=== PATIENT | female | born 1995 | race African-American/Black ===

== ENCOUNTER 2024-04-02 22:14 | Emergency (ER) | payer SELFPAY ==
--- OUTSIDE RECORDS SUMMARY | 2024-04-02 22:20 | XMS REPORT | Continuity of Care Document ---
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 ([facility])Name: SOLEDAD GAYLEEL King : 1995 Sex: F Name: ERWIN GAYLE [facility] : 1995 Age/S: 25 / F [address] [facility] Unit #: [id number] Loc: [place] [address] Phys: [facility] [id number] Dis Date: Status: REG ER PHONE #: [phone] Exam Date: 02/18/202158 FAX #:[phone] Reason: RLQ Pain EXAMS: CPT CODE: [id number] CT ABD PELVIS W/CONT 06818 HISTORY: Right upper quadrant pain. COMPARISON: Scan from April 21, 2020. Location: [facility]. CT abdomen and pelvis with IV contrast: 100 mL of Isovue-370. Automated exposure control CT ABDOMEN: The lung bases are clear. Dependent changes. The hepatic parenchyma enhances homogeneously with early enhancing lesion within the left lobe in segment 2 measuring 1.4 cm not seen on the delayed sequence likely and atypical hemangioma. Portal vein and hepatic artery are patent. No mass or nodules within the liver. Gallbladder is without radiopaque stones. The liver is enlarged at 20.7 cm in length. The spleen is quobfmnnh07.5 cm in length. Homogeneous enhancement. The stomach is collapsed and limited in evaluation. Pancreas is enhancing homogeneously with 6.2 mm low-attenuation nonenhancing lesion noted within the tail of the pancreas which is stable from March 2020. Adrenals are normal. Patient is post left nephrectomy. The surgical bed is clear. Right kidney is free from hydroureteronephrosis. Homogeneous enhancement. Excretion is noted. No pathologic adenopathy. Well-opacified abdominal and pelvic vasculature. No bowel obstruction or colitis or diverticulitis or enteritis. CT PELVIS: Appendix is not visiblebut no inflammatory change. Pelvic bowel loops are unobstructed. Incompletely distended urinary bladder is unremarkable. The uterus is prominent suggestive of leiomyomatous change. Ovaries are poorly defined on either side. Correlate with pelvic ultrasound. Minimal inflammation. Correlate for PID.Small free fluid. No abscess or free PAGE 1 Signed Report (CONTINUED) Name: ERWIN GAYLE [facility] : 1995 Age/S: 25 / F [address] [facility] Unit #: [id number] Loc: [place] [address] Phys: Segun Najera MD Acct: [id number] Dis Date: Status: REG ER PHONE #: [phone] Exam Date: 02/18/2021 0958 FAX #: [phone] Reason: RLQ Pain EXAMS: CPT CODE: [id number] CT ABD PELVIS W/CONT 29895 (Continued) air is noted. No pathologic adenopathy. Subcutaneous tissues and the musculature are normal in appearance. No lytic or blastic lesions are noted within the bony skeleton. IMPRESSION: Ill-defined ovaries with mild inflammation. Small free fluid. Correlate for PID. Fibroid uterus. Correlate with ultrasound. The appendix is normal. Bowel loops are unobstructed. No colitis, diverticulitis or enteritis. Patient is post left nephrectomy. The surgicalbed is clean. Right kidney is unremarkable. Stable 6.2 mm low-attenuation lesion in the tail of the pancreas. The etiology remains unclear. Follow-up is recommended. 1.4 cm early enhancing lesion within the left lobe the liver in segment 2 was not visible on the previous exam. This likely represents an atypical hemangioma. at 1013 Reported and signed by: Gregory Mason M.D. CC: Segun Najera MD Technologist:Patsy Albright CTDI: DLP: Trnscb Date/Time: 02/18/2021 (1013) [email or web address].[email or web address] Orig Print D/T: S: 02/18/2021 (1016) PAGE 2 Signed ReportCOMPREHENSIVE METABOLIC [id number] 09:21:00* Test Item Value Reference Range Interpretation Comme nts SODIUM (test code = NA) 141 mmol/L 136-145 N POTASSIUM (test code = K) 4.2 mmol/L 3.5-5.1 N CHLORIDE (test code = CL) 105 mmol/L 101-109 N CARBON DIOXIDE (test code = CO2) 27.3 mmol/L 21-32 N ANION GAP (test code = GAP) 13 mmol/L 10-20 N GLUCOSE (test code = GLU) 98 mg/dL 74-106 N BLOOD UREA NITROGEN (test code = BUN) 10 mg/dL 3-21 N CREATININE (test code = CREAT) 0.84 mg/dL 0.55-1.3 N BUN/CREATININE RATIO (test code = BUN/CREA) 11.9 10-20 N TOTAL PROTEIN (test code = PROT) 8.0 g/dL 6.5-8.4 N ALBUMIN (test code = ALB) 3.1 g/dL 3.4-4.8 L GLOBULIN (test code = GLOB) 4.9 G/DL 1-10 N ALBUMIN/GLOBULIN RATIO (test code = A/G) 0.63 RATIO 0.75-1.50 L CALCIUM (test code = CA) 8.9 mg/dL 8.4-10.2 N BILIRUBIN TOTAL (test code = BILT) 0.20 mg/dL 0.0-1.0 N SGOT/AST (test code = AST) 18 U/L 6-32 N SGPT/ALT (test code = ALT) 21 U/L 12-78 N Note: Change in REFERENCE RANGE due to new reagent method. ALKALINE PHOSPHATASE TOTAL (test code = ALKP) 73 U/L 38-126 N [id number] 09:21:00* Test Item Value Reference Range Interpretation Comme nts LIPASE (test code = LIP) 198 U/L 128-270 N [id number] 09:21:00* Test Item Value Reference Range Interpretation Comme nts MAGNESIUM (test code = MAG) 1.8 mg/dL 1.6-2.3 N COMPREHENSIVE METABOLIC [id number] 09:13:00* Test Item Value Reference Range Interpretation Comme nts SODIUM (test code = NA) 141 mmol/L 136-145 N POTASSIUM (test code = K) 4.2 mmol/L 3.5-5.1 N CHLORIDE (test code = CL) 105 mmol/L 101-109 N CARBON DIOXIDE (test code = CO2) 27.3 mmol/L 21-32 N ANION GAP (test code = GAP) 13 mmol/L 10-20 N GLUCOSE (test code = GLU) 98 mg/dL 74-106 N BLOOD UREA NITROGEN (test co de = BUN) 10 mg/dL 3-21 N CREATININE (test code = CREAT) 0.84 mg/dL 0.55-1.3 N BUN/CREATININE RATIO (test c ode = BUN/CREA) 11.9 10-20 N TOTAL PROTEIN (test code = PROT) gram/dL 6.4-8.2 ALBUMIN (test code = ALB) g/dL 3.4-5.0 GLOBULIN (test code = GLOB) g/dL 2.7-4.2 ALBUMIN/GLOBULIN RATIO (test code = A/G) 0.75-1.50 CALCIUM (test code = CA) 8.9 mg/dL 8.4-10.2 N BILIRUBIN TOTAL (test code = BILT) mg/dL 0.2-1.2 SGOT/AST (test code = AST) IUnit/L 15-37 SGPT/ALT (test code = ALT) U/L 10-69 ALKALINE PHOSPHATASE TOTAL ( test code = ALKP) IUnit/L 45-117 [id number] 09:13:00* Test Item Value Reference Range Interpretation Comme nts LIPASE (test code = LIP) Unit/L 144-286 [id number] 09:13:00* Test Item Value Reference Range Interpretation Comme nts MAGNESIUM (test code = MAG) mg/dL 1.8-2.4 URINALYSIS [id number] 09:08:00* Test Item Value Reference Range Interpretation Comme nts UA COLOR (test code = COLU) YELLOW YELLOW UA APPEARANCE (test code = APPU) HAZY CLEAR A UA GLUCOSE DIPSTICK (test code = DGLUU) norm mg/dL NEGATIVE UA BILIRUBIN DIPSTICK (test code = BILU) NEGATIVE mg/dL NEGATIVE UA KETONE DIPSTICK (test code = KETU) neg mg/dL NEGATIVE UA SPECIFIC GRAVITY (test code = SGU) 1.015 1.001-1.035 UA BLOOD DIPSTICK (test code = COURTNEY) 250 (4+) Warren/uL NEGATIVE A UA PH DIPSTICK (test code = BREANN) 6.0 5.0-8.0 UA PROTEIN DIPSTICK (test code = PROU) 15 (TRACE) mg/dL Neg-15 A UA UROBILINIOGEN DIPSTICK (test code = URO) norm mg/dL 0.0-0.2 UA NITRITE DIPSTICK (test code = YANCY) NEGATIVE NEGATIVE UA LEUKOCYTE ESTERASE DIPSTICK (test code = LEUU) neg uL NEGATIVE UA WBC (test code = WBCU) 0-2 per HPF 0-5 UA RBC (test code = RBCU) >100 per HPF 0-5 UA EPITHELIAL CELLS (test code = EPIU) Few (2-5/hpf) per HPF Few UA BACTERIA (test code = BACU) FEW per HPF NONE Urine Source? Clean CatchUR HCG [id number] 09:08:00* Test Item Value Reference Range Interpretation Comme nts UR HCG QUAL (test code = HCGQLU) Urine Source? Clean CatchURINALYSIS [id number] 09:08:00* Test Item Value Reference Range Interpretation Comme nts UA COLOR (test code = COLU) YELLOW YELLOW UA APPEARANCE (test code = APPU) HAZY CLEAR A UA GLUCOSE DIPSTICK (test code = DGLUU) norm mg/dL NEGATIVE UA BILIRUBIN DIPSTICK (test code = BILU) NEGATIVE mg/dL NEGATIVE UA KETONE DIPSTICK (test code = KETU) neg mg/dL NEGATIVE UA SPECIFIC GRAVITY (test code = SGU) 1.015 1.001-1.035 UA BLOOD DIPSTICK (test code = COURTNEY) 250 (4+) Warren/uL NEGATIVE A UA PH DIPSTICK (test code = BREANN) 6.0 5.0-8.0 UA PROTEIN DIPSTICK (test code = PROU) 15 (TRACE) mg/dL Neg-15 A UA UROBILINIOGEN DIPSTICK (test code = URO) norm mg/dL 0.0-0.2 UA NITRITE DIPSTICK (test code = YANCY) NEGATIVE NEGATIVE UA LEUKOCYTE ESTERASE DIPSTICK (test code = LEUU) neg uL NEGATIVE UA WBC (test code = WBCU) 0-2 per HPF 0-5 UA RBC (test code = RBCU) >100 per HPF 0-5 UA EPITHELIAL CELLS (test code = EPIU) Few (2-5/hpf) per HPF Few UA BACTERIA (test code = BACU) FEW per HPF NONE Urine Source? Clean CatchUR HCG [id number] 09:08:00* Test Item Value Reference Range Interpretation Comme nts UR HCG QUAL (test code = HCGQLU) NEGATIVE This HCGQL test is NOT applicable for MALE patients.Check with nurse about probable order error.If Tumor Marker Test needed, nurse should order test "HCGTU"(Test #550.55948) Urine Source? Clean CatchCBC W/AUTO [id number] 09:02:00* Test Item Value Reference Range Interpretation Comme nts WHITE BLOOD CELL (test code = WBC) 6.1 K/mm3 4.5-12.5 N RED BLOOD CELL (test code = RBC) 4.90 mill/mm3 3.7-5.2 N HEMOGLOBIN (test code = HGB) 10.9 gram/dL 11.5-15.5 L HEMATOCRIT (test code = HCT) 35.5 % 36.0-46.0 L MEAN CELL VOLUME (test code = MCV) 72.4 fL 80-98 L MEAN CELL HGB (test code = MCH) 22.2 picogram 27.0-33.0 L MEAN CELL HGB CONCETRATION (test code = MCHC) 30.7 gram/dL 33.0-36.0 L RED CELL DISTRIBUTION WIDTH (test code = RDW) 16.1 % 11.6-16.2 N RED CELL DISTRIBUTION WIDTH SD (test code = RDW-SD) 42.9 fL 37.0-51.0 N PLATELET COUNT (test code = PLT) 464 K/mm3 150-450 H MEAN PLATELET VOLUME (test c ode = MPV) 9.1 fL 6.7-11.0 N NEUTROPHIL % (test code = NT%) 48.7 % 39.0-69.0 N LYMPHOCYTE % (test code = LY%) 32.6 % 25.0-55.0 N MONOCYTE % (test code = MO%) 11.7 % 0.0-10.0 H EOSINOPHIL % (test code = EO%) 6.3 % 0.0-5.0 H BASOPHIL % (test code = BA%) 0.5 % 0.0-1.0 N NEUTROPHIL # (test code = NT#) 2.96 K/mm3 1.8-7.7 N LYMPHOCYTE # (test code = LY#) 1.98 K/mm3 1.0-5.0 N MONOCYTE # (test code = MO#) 0.71 K/mm3 0-0.8 N EOSINOPHIL # (test code = EO#) 0.38 K/mm3 0.0-0.5 N BASOPHIL # (test code = BA#) 0.03 K/mm3 0.0-0.2 N MANUAL DIFF REQUIRED (test c ode = MDIFF) NO CT ABD/PEL WITH [id number] 09:12:00[place] [address] Patient Name: ERWIN GAYLE MR #: [id number] : 1995 Age/Sex: 24/F Req #: [id number] Adm Physician: Ordered by: KASSY PENDLETON Report #: [id number] Location: [facility] Room/Bed: Procedure: HOPD/CT ABD/PEL WITH CONTRAST-HOPD Exam Date: 05/28/20 Exam Time:0845 REPORT STATUS: Signed CT of the abdomen and pelvis, with contrast, 05/28/2020. History: Right lower quadrant pain for 3 days. Comparison: None available. Technique: Multidetector CT scanning of the abdomen and pelvis was performed from the level of the lung bases to the inferior pubic rami afterintravenous administration of contrast. Coronal and sagittal multiplanar reformations were obtained. RADIATION DOSE: Total DLP: 756 mGy*cm Dose modulation, iterative reconstruction, and/or weight based adjustment of the mA/kV was utilized to reduce the radiation dose to as low as reasonably achieva ble. Discussion: LUNG BASES: No visualized abnormalities. ABDOMEN: The liver, gallbladder, biliary tree, spleen, pancreas, right adrenal gland, and right kidney are normal. The left kidney and adrenal glands are absent, and surgical clips are present in the area consistent with history of left nephrectomy. The hepatic vein, portal vein, and splenic vein are patent. The abdominal aorta is within normal limits for size. Evaluation of bowel is limited without oral contrast. There is no bowel dilatation. The appendix is not identified but there is no evidence of inflammation in the right lower quadrant. There is no evidence of adenopathy or free fluid. PELVIS: The bladder, uterus, and adnexa are unremarkable. There is no evidence of free fluid or adenopathy. BONES AND SOFT TISSUES: No acute findings. IMPRESSION: Status post left nephrectomy. Otherwise unremarkable CT of the abdomen and pelvis. Signed by: Nilo Tarango on 05/28/2020 9:16 AM Dictated By: NILO TARANGO MD Electronically SignedBy: NILO TARANGO MD on 05/28/20915 Transcribed By: RIAN on 05/28/20915 COPY TO: KASSY PENDLETON- PELVIS [id number] 12:45:00Name: ERWIN GAYLE 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 Comparison study: Pelvic ultrasound 04/21/2020 FINDINGS: Uterus: size: 7.9 x 5.4 x 5.4cm using transabdominal measurements echogenicity/masses: Probable multi fibroid uterus. The largest measures up to 1.4 x 1.1 x 1.1 cm. endometrium: 3.7 mm Duplex scans of the ovarian arteries were performed. Eastman scale images were supplemented with color-flow Doppler. Doppler flow velocity analysis (duplex Doppler) was performed. Right ovary: size: 2.7 x 1.6 x 2.3 cm cysts/masses: None Doppler findings: Normal arterial and venous waveforms. adnexal masses: None Left ovary: size: 2 x 1.4 x 2.2 cm cysts/masses: None Doppler findings: Normal arterial and venous waveforms. adnexal masses: None Free fluid: No fluid seen in the cul-de-sac. IMPRESSION: Multi fibroid uterus. Otherwise unremarkablepelvic ultrasound. PAGE 1 Signed Report (CONTINUED) Name: ERWIN GAYLE [facility] : 1995 Age/S: 24 / F [address] [facility] Unit #: [id number] Loc: [place] [address] Phys: CorbinsimbaJosé CARDENAS Acct: [id number] Dis Date: Status: REG ER PHONE #: [phone] Exam Date: 05/20/2020 1239 FAX #: [phone] Reason: PELVIC PAIN EXAMS: CPT CODE: [id number] US PELVIS COMPLETE 79944 (Continued) Location: [facility] at 1245 Reported and signed by: Jimmie Roque M.D. CC: Sanket Desir MD; José Arriola Technologist: Nohelia Tracey RDMS Trnprb Date/Time: 05/20/2020 (9258) [email or web address] Orig Print D/T: S: 05/20/2020 (2878) Probe: PAGE 2 Signed Report- US TRANSVAGINAL NON OB 2020-05-20 12:45:00Name: ERWIN GAYLE [facility] : 1995 Age/S: 24 / F [address] [facility] Unit #: [id number] Loc: [place] [address] Phys: José Arriola Acct: [id number] Dis Date: Status: REG ER PHONE #: [phone] Exam Date: 05/20/2020 1239 FAX #: [phone] Reason: Pelvic Pain EXAMS: CPT CODE: [id number] [place] [address] REASON FOR EXAM: PELVIC PAINEXAM ORDER DATE: 05/20/2020 11:25 AM Attending Lydia: José Arriola PROCEDURE: - DUP AB/PEL/SC COMP, - US TRANSVAGINAL NON OB, - US PELVIS COMPLETE Technique: Grayscale images, color doppler, andspectral doppler images of the uterus and ovaries were obtained utilizing A transabdominal and transvaginal approach. Comparison study: Pelvic ultrasound 04/21/2020 FINDINGS: Uterus: size: 7.9 x 5.4 x 5.4 cm using transabdominal measurements echogenicity/masses: Probable multi fibroid uterus. The largest measures up to 1.4 x 1.1 x 1.1 cm. endometrium: 3.7 mm Duplex scans of the ovarian arteries were performed. Eastman scale images were supplemented with color- flow Doppler. Doppler flow velocity analysis (duplex Doppler) was performed. Right ovary: size: 2.7 x 1.6 x 2.3 cm cysts/masses: None Doppler findings: Normal arterial and venous waveforms. adnexal masses: None Left ovary: size: 2 x 1.4 x2.2 cm cysts/masses: None Doppler findings: Normal arterial and venous waveforms. adnexal masses: None Free fluid: No fluid seen in the cul-de-sac. IMPRESSION: Multi fibroid uterus. Otherwise unremarkable pelvic ultrasound. PAGE 1 Signed Report (CONTINUED) Name: ERWIN GAYLE [facility] : 1995 Age/S: 24 / F [address] [facility] Unit #: [id number] Loc: [place] [address] Phys: José Arriola Acct: [id number] Dis Date: Status: REG ER PHONE #: [phone] Exam Date: 05/20/2020 1239 FAX #: [phone] Reason: Pelvic Pain EXAMS: CPT CODE: [id number] [place] [address] (Continued) Location: [facility] at 1245 Reported and signed by: Jimmie Roque M.D. CC: Sanket Desir MD; José Arriola Technologist: Nohelia Tracey RDMS Trnscb Date/Time: 05/20/2020 (1245) [email or web address] Orig PrintD/T: S: 05/20/2020 (1248) Probe: [id number] PAGE 2 Signed Report- DUP AB/PEL/SC [id number] 12:45:00 Name: ERWIN GAYLE [facility] : 1995 Age/S: 24 / F [address] [facility] Unit #: [id number] Loc: [place] [address] Phys: José Arriola Acct: [id number] Dis Date: Status: REG ER PHONE #: [phone] Exam Date: 05/20/2020 1239 FAX #: [phone] Reason: PELVIC PAIN EXAMS: CPT CODE: [id number] DUP AB/PEL/SC COMP 81949 REASON FOR EXAM: PELVIC PAIN EXAMORDER DATE: 05/20/2020 11:25 AM Attending Lydia: José Arriola PROCEDURE: - DUP AB/PEL/SC COMP, - US TRANSVAGINAL NON OB, - US PELVIS COMPLETE Technique: Grayscale images, color doppler, and spectral doppler images of the uterus and ovaries were obtained utilizing A transabdominal and transvaginal approach. Comparison study: Pelvic ultrasound 04/21/2020 FINDINGS: Uterus: size: 7.9 x 5.4 x 5.4 cm using transabdominal measurements echogenicity/masses: Probable multi fibroid uterus. The largest measures up to 1.4 x 1.1 x 1.1 cm. endometrium: 3.7 mm Duplex scans of the ovarian arteries were performed. Eastman scale images were supplemented with color-flow Doppler. Doppler flow velocity analysis (duplex Doppler) was performed. Right ovary: size: 2.7 x 1.6 x 2.3 cm cysts/masses: None Doppler findings: Normal arterial and venous waveforms. adnexal masses: None Left ovary: size: 2 x 1.4 x 2.2 cmcysts/masses: None Doppler findings: Normal arterial and venous waveforms. adnexal masses: None Free fluid: No fluid seen in the cul-de-sac. IMPRESSION: Multi fibroid uterus. Otherwise unremarkable pelvic ultrasound. PAGE 1 Signed Report (CONTINUED) Name: ERWIN GAYLE [facility] : 1995 Age/S: 24 / F [address] [facility] Unit #: [id number] Loc: [place] [address] Phys: José Arriola Acct: [id number] Dis Date: Status: REG ER PHONE #: [phone] Exam Date: 05/20/2020 1239 FAX #: [phone] Reason: PELVIC PAIN EXAMS: CPT CODE: [id number] DUP AB/PEL/SC COMP 51007 (Continued) Location: [facility] at 1245 Reported and signed by: Jimmie Roque M.D. CC: Sanket Desir MD; José Arriola Technologist: Nohelia Tracey RDMS Trnscb Date/Time: 05/20/2020 (1245) [email or web address] Orig Print D/T: S: 05/20/2020 (4073) Probe: PAGE 2 Signed ReportBASIC METABOLIC [id number] 12:10:00* Test Item Value Reference Range Interpretation Comme nts SODIUM (test code = NA) 139 mmol/L 135-148 N POTASSIUM (test code = K) 3.7 mmol/L 3.5-5.1 N CHLORIDE (test code = CL) 105 mmol/L 101-109 N CARBON DIOXIDE (test code = CO2) 24.5 mmol/L 21-32 N ANION GAP (test code = GAP) 13 mmol/L 10-20 N GLUCOSE (test code = GLU) 104 mg/dL 74-106 N BLOOD UREA NITROGEN (test code = BUN) 13 mg/dL 3-21 N GLOMERULAR FILTRATION RATE (test code = GFR) > 60 mL/min >=60 Estimated GFR by using Modified MDRD formula.Chronic kidney disease is defined as either kidney damageor GFR <60 mL/min/1.73 m2 for >3 months. CREATININE (test code = CREAT) 0.80 mg/dL 0.55-1.3 N BUN/CREATININE RATIO (test code = BUN/CREA) 16.3 10-20 N CALCIUM (test code = CA) 8.9 mg/dL 8.4-10.2 N HEPATIC FUNCTION [id number] 12:10:00* Test Item Value Reference Range Interpretation Comme nts TOTAL PROTEIN (test code = PROT) 8.0 g/dL 6.5-8.4 N ALBUMIN (test code = ALB) 3.1 g/dL 3.4-4.8 L GLOBULIN (test code = GLOB) 4.9 G/DL 1-10 N ALBUMIN/GLOBULIN RATIO (test code = A/G) 0.6 RATIO 0.75-1.50 L BILIRUBIN TOTAL (test code = BILT) 0.30 mg/dL 0.0-1.0 N BILIRUBIN DIRECT (test code = BILD) 0.10 mg/dL 0.0-0.30 N SGOT/AST (test code = AST) 14 U/L 6-32 N SGPT/ALT (test code = ALT) 23 U/L 12-78 N Note: Change in REFERENCE RANGE due to new reagent method. ALKALINE PHOSPHATASE TOTAL (test code = ALKP) 65 U/L 38-126 N [id number] 12:10:00* Test Item Value Reference Range Interpretation Comme nts LIPASE (test code = LIP) 134 U/L 128-270 N HCG SERUM [id number] 12:10:00* Test Item Value Reference Range Interpretation Comme nts HCG SERUM QUAL (test code = HCGQL) NEGATIVE NEGATIVE This HCGQL test is NOT applicable for MALE patients.Check with nurse about probable order error.If Tumor Marker Test needed, nurse should order test "HCGTU"(Test #550.79190) URINALYSIS [id number] 12:09:00* Test Item Value Reference Range Interpretation Comme nts UA COLOR (test code = COLU) YELLOW YELLOW UA APPEARANCE (test code = APPU) HAZY CLEAR A UA GLUCOSE DIPSTICK (test code = DGLUU) norm mg/dL NEGATIVE UA BILIRUBIN DIPSTICK (test code = BILU) NEGATIVE mg/dL NEGATIVE UA KETONE DIPSTICK (test code = KETU) 5 (Trace) mg/dL NEGATIVE A UA SPECIFIC GRAVITY (test code = SGU) 1.025 1.001-1.035 UA BLOOD DIPSTICK (test code = COURTNEY) 150 (3+) Warren/uL NEGATIVE A UA PH DIPSTICK (test code = BREANN) 6.0 5.0-8.0 UA PROTEIN DIPSTICK (test code = PROU) 30 (1+) mg/dL Neg-15 A UA UROBILINIOGEN DIPSTICK (test code = URO) 1 mg/dL 0.0-0.2 A UA NITRITE DIPSTICK (test code = YANCY) NEGATIVE NEGATIVE UA LEUKOCYTE ESTERASE DIPSTICK (test code = LEUU) 25 Philipp/uL (Trace) uL NEGATIVE A UA WBC (test code = WBCU) 0-5 per HPF 0-5 UA RBC (test code = RBCU) 0-3 per HPF 0-5 UA EPITHELIAL CELLS (test code = EPIU) Moderate (5-10/hpf) per HPF Few UA BACTERIA (test code = BACU) MANY per HPF NONE Urine Source? Clean CatchBASIC METABOLIC [id number] 12:08:00* Test Item Value Reference Range Interpretation Comme nts SODIUM (test code = NA) 139 mmol/L 135-148 N POTASSIUM (test code = K) 3.7 mmol/L 3.5-5.1 N CHLORIDE (test code = CL) 105 mmol/L 101-109 N CARBON DIOXIDE (test code = CO2) 24.5 mmol/L 21-32 N ANION GAP (test code = GAP) 13 mmol/L 10-20 N GLUCOSE (test code = GLU) 104 mg/dL 74-106 N BLOOD UREA NITROGEN (test code = BUN) 13 mg/dL 3-21 N GLOMERULAR FILTRATION RATE (test code = GFR) > 60 mL/min >=60 Estimated GFR by using Modified MDRD formula.Chronic kidney disease is defined as either kidney damageor GFR <60 mL/min/1.73 m2 for >3 months. CREATININE (test code = CREAT) 0.80 mg/dL 0.55-1.3 N BUN/CREATININE RATIO (test code = BUN/CREA) 16.3 10-20 N CALCIUM (test code = CA) 8.9 mg/dL 8.4-10.2 N HEPATIC FUNCTION [id number] 12:08:00* Test Item Value Reference Range Interpretation Comme nts TOTAL PROTEIN (test code = PROT) gram/dL 6.4-8.2 ALBUMIN (test code = ALB) g/dL 3.4-5.0 GLOBULIN (test code = GLOB) g/dL 2.7-4.2 ALBUMIN/GLOBULIN RATIO (test code = A/G) 0.75-1.50 BILIRUBIN TOTAL (test code = BILT) mg/dL 0.2-1.2 BILIRUBIN DIRECT (test code = BILD) mg/dL 0.0-0.20 SGOT/AST (test code = AST) IUnit/L 15-37 SGPT/ALT (test code = ALT) U/L 10-69 ALKALINE PHOSPHATASE TOTAL ( test code = ALKP) IUnit/L 45-117 [id number] 12:08:00* Test Item Value Reference Range Interpretation Comme nts LIPASE (test code = LIP) Unit/L 144-286 HCG SERUM [id number] 12:08:00* Test Item Value Reference Range Interpretation Comme nts HCG SERUM QUAL (test code = HCGQL) NEGATIVE NEGATIVE This HCGQL test is NOT applicable for MALE patients.Check with nurse about probable order error.If Tumor Marker Test needed, nurse should order test "HCGTU"(Test #550.30639) BASIC METABOLIC [id number] 12:04:00* Test Item Value Reference Range Interpretation Comme nts SODIUM (test code = NA) 139 mmol/L 135-148 N POTASSIUM (test code = K) 3.7 mmol/L 3.5-5.1 N CHLORIDE (test code = CL) 105 mmol/L 101-109 N CARBON DIOXIDE (test code = CO2) 24.5 mmol/L 21-32 N ANION GAP (test code = GAP) 13 mmol/L 10-20 N GLUCOSE (test code = GLU) 104 mg/dL 74-106 N BLOOD UREA NITROGEN (test code = BUN) 13 mg/dL 3-21 N GLOMERULAR FILTRATION RATE (test code = GFR) > 60 mL/min >=60 Estimated GFR by using Modified MDRD formula.Chronic kidney disease is defined as either kidney damageor GFR <60 mL/min/1.73 m2 for >3 months. CREATININE (test code = CREAT) 0.80 mg/dL 0.55-1.3 N BUN/CREATININE RATIO (test code = BUN/CREA) 16.3 10-20 N CALCIUM (test code = CA) 8.9 mg/dL 8.4-10.2 N HEPATIC FUNCTION [id number] 12:04:00* Test Item Value Reference Range Interpretation Comme nts TOTAL PROTEIN (test code = PROT) gram/dL 6.4-8.2 ALBUMIN (test code = ALB) g/dL 3.4-5.0 GLOBULIN (test code = GLOB) g/dL 2.7-4.2 ALBUMIN/GLOBULIN RATIO (test code = A/G) 0.75-1.50 BILIRUBIN TOTAL (test code = BILT) mg/dL 0.2-1.2 BILIRUBIN DIRECT (test code = BILD) mg/dL 0.0-0.20 SGOT/AST (test code = AST) IUnit/L 15-37 SGPT/ALT (test code = ALT) U/L 10-69 ALKALINE PHOSPHATASE TOTAL ( test code = ALKP) IUnit/L 45-117 [id number] 12:04:00* Test Item Value Reference Range Interpretation Comme nts LIPASE (test code = LIP) Unit/L 144-286 HCG SERUM [id number] 12:04:00* Test Item Value Reference Range Interpretation Comme nts HCG SERUM QUAL (test code = HCGQL) NEGATIVE URINALYSIS [id number] 12:02:00* Test Item Value Reference Range Interpretation Comme nts UA COLOR (test code = COLU) YELLOW YELLOW UA APPEARANCE (test code = APPU) HAZY CLEAR A UA GLUCOSE DIPSTICK (test code = DGLUU) norm mg/dL NEGATIVE UA BILIRUBIN DIPSTICK (test code = BILU) NEGATIVE mg/dL NEGATIVE UA KETONE DIPSTICK (test code = KETU) 5 (Trace) mg/dL NEGATIVE A UA SPECIFIC GRAVITY (test code = SGU) 1.025 1.001-1.035 UA BLOOD DIPSTICK (test code = COURTNEY) 150 (3+) Warren/uL NEGATIVE A UA PH DIPSTICK (test code = RBEANN) 6.0 5.0-8.0 UA PROTEIN DIPSTICK (test code = PROU) 30 (1+) mg/dL Neg-15 A UA UROBILINIOGEN DIPSTICK (test code = URO) 1 mg/dL 0.0-0.2 A UA NITRITE DIPSTICK (test code = YANCY) NEGATIVE NEGATIVE UA LEUKOCYTE ESTERASE DIPSTICK (test code = LEUU) 25 Philipp/uL (Trace) uL NEGATIVE A UA WBC (test code = WBCU) per HPF 0-5 UA RBC (test code = RBCU) per HPF 0-5 UA EPITHELIAL CELLS (test code = EPIU) per HPF Few UA BACTERIA (test code = BACU) per HPF NONE Urine Source? Clean CatchCBC W/O [id number] 11:56:00* Test Item Value Reference Range Interpretation Comme nts WHITE BLOOD CELL (test code = WBC) 8.3 K/mm3 4.5-12.5 N RED BLOOD CELL (test code = RBC) 4.91 mill/mm3 3.7-5.2 N HEMOGLOBIN (test code = HGB) 11.1 gram/dL 11.5-15.5 L HEMATOCRIT (test code = HCT) 36.0 % 36.0-46.0 N MEAN CELL VOLUME (test code = MCV) 73.3 fL 80-98 L MEAN CELL HGB (test code = MCH) 22.6 picogram 27.0-33.0 L MEAN CELL HGB CONCETRATION (test code = MCHC) 30.8 gram/dL 33.0-36.0 L RED CELL DISTRIBUTION WIDTH (test code = RDW) 14.5 % 11.6-16.2 N RED CELL DISTRIBUTION WIDTH SD (test code = RDW-SD) 38.8 fL 37.0-51.0 N PLATELET COUNT (test code = PLT) 419 K/mm3 150-450 N MEAN PLATELET VOLUME (test c ode = MPV) 9.7 fL 6.7-11.0 N CHLAMYDIA GC DNA BY [id number] 13:09:00* Test Item Value Reference Range Interpretation Comme nts C. TRACHOMATIS DNA BY PCR (test code = CHLAMTDNA) Negative Negative N. GONORRHOEAE DNA BY PCR (test code = NGONORDNA) Negative Negative Performed At: [facility] [place], [place] [id number] Arzola MD Ph:[phone] performed at: [facility] [address] [place] [address] - CT ABD PELVIS [id number] 19:36:00Name: ERWIN GAYLE [facility] : 1995 Age/S: 24 / F [address] [facility] Unit #: [id number] Loc: [place] [address] Phys: Sarah Wills MD Acct: [id number] Date: Status: REG ER PHONE #: [phone] Exam Date: 04/21/2020 175 FAX #: [phone] Reason: RLQ pain EXAMS: CPT CODE: [id number] CT ABD PELVIS W/CONT [id number] EXAM: CT of the abdomen and pelvis with contrast; INFORMATION: Right lower quadrant pain; TECHNIQUE AND FINDINGS: CT dose reduction protocol; 5 mm cuts through the abdomen and pelvis during and after intravenous infusion of contrast material. The liver is enlarged and shows slightly decreased attenuation. No focal lesions. No abnormalities of the biliary system. Pancreas and spleen unremarkable. 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 The left adrenal gland is also absent. The right adrenal gland is not clearly identified but there is no evidence of an adrenal mass lesion. The right kidney is unremarkable; no hydronephrosis. No acute bowel abnormalities. The uterus is enlarged with a solid nodule along its posterior portion. No adnexal lesions. Lung bases are clear. IMPRESSION: 1. No acute abdominal or pelvic abnormalities. 2. Fatty infiltration of the liver. 3.Solitary and unremarkable right kidney. 4. Uterine fibroid. Location code: [facility] at 1936 Reported and signed by: Conrad Lees M.D. CC: Sarah Wills MD Technologist:Patsy Albright CTDI: DLP: Trnscb Date/Time: 04/21/2020 (1935) t.SDR.GRW Orig Print D/T: S: 04/21/2020 (1938) PAGE 1 Signed Report- DUP AB/PEL/SC [id number] 19:01:00Name: ERWIN GAYLE [facility] : 1995 Age/S: 24 / F [address] [facility] Unit #: [id number] Loc: [place] [address] Phys: Sarah Wills MD Acct: [id number] Dis Date: Status: REG ER PHONE #: [phone] Exam Date: 04/21/2020 1744 FAX #: [phone] Reason: RLQ pain and vaginal bleeding EXAMS: CPT CODE: [id number] DUP AB/PEL/SC COMP [id number] EXAM: Transvaginal ultrasound and Doppler sonography; INFORMATION: Right lower quadrant pain and vaginal bleeding;TECHNIQUE AND FINDINGS: Transvaginal grayscale imaging was combined with color Doppler sonography and spectral analysis. The uterus is of normal size and shape. It measures 7.4 x 2.9 x 3.9 cm. Thin endometrial stripe, measuring 5 mm in thickness; no fluid collection within the endometrial canal. A solid nodule is seen within the myometrium, measuring 4.8 x 3.9 cm in diameter. This is consistent with a fibroid. The ovaries are of normal size and shape and with normal flow pattern on Doppler exam. The right ovary measures 3.2 x 1.8 x 2.3 cm. The left ovary measures 2.5 x 1.6 x 2.2 cm. No free fluid within the cul-de-sac. IMPRESSION: 1. Uterine fibroid. 2. No adnexal lesions. Location code: [facility] at 1901 Reported and signed by: Conrad Lees M.D. CC: Sarah Wills MD Technologist: Sebas Jackson [facility] Trnprb Date/Time: 04/21/2020 (1900) tJOHNGRW Orig Print D/T: S: 04/21/2020 (1903) Probe: PAGE 1 Signed Report- US TRANSVAGINAL NON [id number] 19:01:00Name: ERWIN GAYLE [facility] : 1995 Age/S: 24 / F [address] [facility] Unit #: [id number] Loc: [place] [address] Phys: Sarah Wills MD Acct: [id number] Dis Date: Status: REG ER PHONE #: [phone] Exam Date: 04/21/2020 2019 FAX #: [phone] Reason: RLQ pain and vaginal bleeding EXAMS: CPT CODE: [id number] [place] [id number] EXAM: Transvaginal ultrasound and Doppler sonography; INFORMATION: Right lower quadrant pain and vaginal bleeding; TECHNIQUE AND FINDINGS: Transvaginal grayscale imaging was combined with color Doppler sonography and spectral analysis. The uterus is of normal size and shape. It measures 7.4 x 2.9 x 3.9 cm. Thin endometrial stripe, measuring 5 mm in thickness; no fluid collection within the endometrial canal.A solid nodule is seen within the myometrium, measuring 4.8 x 3.9 cm in diameter. This is consistent with a fibroid. The ovaries are of normal size and shape and with normal flow pattern on Doppler exam. The right ovary measures 3.2 x 1.8 x 2.3 cm. The left ovary measures 2.5 x 1.6 x 2.2 cm. No free fluid within the cul-de-sac. IMPRESSION: 1. Uterine fibroid. 2. No adnexal lesions. Location code:[facility] at 190 Reported and signed by: Conrad Lees M.D. CC: Sarah Wills MD Technologist: Sebas Jackson RDAZ Trnprb Date/Time: 04/21/2020 (1900) WilberGRW Orig Print D/T: S: 04/21/2020 (1903) Probe: [id number] PAGE 1 Signed Report- XR CHEST 1 [id number] 17:59:00Name: ERWIN GAYLE [facility] : 1995 Age/S:24 /F [address] [facility] Unit#:[id number] Loc: [place] [address] Phys: Sarah Wills MD Dis Date: PHONE #: [phone] Status: PRE ER FAX #: [phone] Exam Date: 04/21/2020 Reason: Abdominal Pain EXAMS: CPT CODE: [id number] XR CHEST 1 V 90785 EXAM: Chest X-ray, 1 view; CLINICAL HISTORY: Chest pain and abdominal pain; FINDINGS: The lungs are clear, no infiltrates, no edema; no effusions; no pneumothorax; normal cardiomediastinal silhouette. IMPRESSION: Normal chest x- ray. Location code: [facility] at 175 Reported and signed by: Conrad Lees M.D. CC: Sarah Wills MD Technologist: Patsy Albright Trnprrpt Data: 04/21/2020 (5094) WilberGRW Orig Print D/T: S: 04/21/2020 (1990) PAGE 1 Signed ReportBASIC METABOLIC [id number] 17:09:00* Test Item Value Reference Range Interpretation Comme nts SODIUM (test code = NA) 138 mmol/L 136-145 N POTASSIUM (test code = K) 3.8 mmol/L 3.5-5.1 N CHLORIDE (test code = CL) 105 mmol/L 101-109 N CARBON DIOXIDE (test code = CO2) 24.4 mmol/L 21-32 N ANION GAP (test code = GAP) 12 mmol/L 10-20 N GLUCOSE (test code = GLU) 89 mg/dL 74-106 N BLOOD UREA NITROGEN (test code = BUN) 15 mg/dL 3-21 N GLOMERULAR FILTRATION RATE (test code = GFR) > 60 mL/min >=60 Estimated GFR by using Modified MDRD formula.Chronic kidney disease is defined as either kidney damageor GFR <60 mL/min/1.73 m2 for >3 months. CREATININE (test code = CREAT) 0.98 mg/dL 0.55-1.3 N BUN/CREATININE RATIO (test code = BUN/CREA) 15.3 10-20 N CALCIUM (test code = CA) 8.8 mg/dL 8.4-10.2 N HEPATIC FUNCTION [id number] 17:09:00* Test Item Value Reference Range Interpretation Comme nts TOTAL PROTEIN (test code = PROT) 8.1 g/dL 6.5-8.4 N ALBUMIN (test code = ALB) 3.3 g/dL 3.4-4.8 L GLOBULIN (test code = GLOB) 4.8 G/DL 1-10 N ALBUMIN/GLOBULIN RATIO (test code = A/G) 0.69 RATIO 0.75-1.50 L BILIRUBIN TOTAL (test code = BILT) 0.20 mg/dL 0.0-1.0 N BILIRUBIN DIRECT (test code = BILD) 0.00 mg/dL 0.0-0.30 N SGOT/AST (test code = AST) 14 U/L 6-32 N SGPT/ALT (test code = ALT) 23 U/L 12-78 N Note: Change in REFERENCE RANGE due to new reagent method. ALKALINE PHOSPHATASE TOTAL (test code = ALKP) 63 U/L 38-126 N [id number] 17:09:00* Test Item Value Reference Range Interpretation Comme nts LIPASE (test code = LIP) 161 U/L 128-270 N HCG SERUM [id number] 17:09:00* Test Item Value Reference Range Interpretation Comme nts HCG SERUM QUAL (test code = HCGQL) NEGATIVE NEGATIVE This HCGQL test is NOT applicable for MALE patients.Check with nurse about probable order error.If Tumor Marker Test needed, nurse should order test "HCGTU"(Test #550.90711) [id number] 17:09:00* Test Item Value Reference Range Interpretation Comme nts TROPONIN-I (test code = TROPI) <0.015 ng/mL 0.00-0.056 N URINALYSIS [id number] 17:02:00* Test Item Value Reference Range Interpretation Comme nts UA COLOR (test code = COLU) DARK YELLOW YELLOW A UA APPEARANCE (test code = APPU) HAZY CLEAR A UA GLUCOSE DIPSTICK (test code = DGLUU) norm mg/dL NEGATIVE UA BILIRUBIN DIPSTICK (test code = BILU) NEGATIVE mg/dL NEGATIVE UA KETONE DIPSTICK (test code = KETU) 5 (Trace) mg/dL NEGATIVE A UA SPECIFIC GRAVITY (test code = SGU) 1.020 1.001-1.035 UA BLOOD DIPSTICK (test code = COURTNEY) neg Warren/uL NEGATIVE UA PH DIPSTICK (test code = BREANN) 5.0 5.0-8.0 UA PROTEIN DIPSTICK (test code = PROU) 15 (TRACE) mg/dL Neg-15 A UA UROBILINIOGEN DIPSTICK (test code = URO) 1 mg/dL 0.0-0.2 A UA NITRITE DIPSTICK (test code = YANCY) NEGATIVE NEGATIVE UA LEUKOCYTE ESTERASE DIPSTICK (test code = LEUU) 25 Philipp/uL (Trace) uL NEGATIVE A UA WBC (test code = WBCU) 0-5 per HPF 0-5 UA RBC (test code = RBCU) NONE SEEN per HPF 0-5 UA EPITHELIAL CELLS (test code = EPIU) Few (2-5/hpf) per HPF Few UA BACTERIA (test code = BACU) MANY per HPF NONE A UA MUCUS (test code = MUCU) MODERATE per LPF NONE-FEW A Urine Source? Clean CatchBASIC METABOLIC [id number] 17:01:00* Test Item Value Reference Range Interpretation Comme nts SODIUM (test code = NA) 138 mmol/L 136-145 N POTASSIUM (test code = K) 3.8 mmol/L 3.5-5.1 N CHLORIDE (test code = CL) 105 mmol/L 101-109 N CARBON DIOXIDE (test code = CO2) 24.4 mmol/L 21-32 N ANION GAP (test code = GAP) 12 mmol/L 10-20 N GLUCOSE (test code = GLU) 89 mg/dL 74-106 N BLOOD UREA NITROGEN (test code = BUN) 15 mg/dL 3-21 N GLOMERULAR FILTRATION RATE (test code = GFR) > 60 mL/min >=60 Estimated GFR by using Modified MDRD formula.Chronic kidney disease is defined as either kidney damageor GFR <60 mL/min/1.73 m2 for >3 months. CREATININE (test code = CREAT) 0.98 mg/dL 0.55-1.3 N BUN/CREATININE RATIO (test code = BUN/CREA) 15.3 10-20 N CALCIUM (test code = CA) 8.8 mg/dL 8.4-10.2 N HEPATIC FUNCTION [id number] 17:01:00* Test Item Value Reference Range Interpretation Comme nts TOTAL PROTEIN (test code = PROT) gram/dL 6.4-8.2 ALBUMIN (test code = ALB) g/dL 3.4-5.0 GLOBULIN (test code = GLOB) g/dL 2.7-4.2 ALBUMIN/GLOBULIN RATIO (test code = A/G) 0.75-1.50 BILIRUBIN TOTAL (test code = BILT) mg/dL 0.2-1.2 BILIRUBIN DIRECT (test code = BILD) mg/dL 0.0-0.20 SGOT/AST (test code = AST) IUnit/L 15-37 SGPT/ALT (test code = ALT) U/L 10-69 ALKALINE PHOSPHATASE TOTAL ( test code = ALKP) IUnit/L 45-117 [id number] 17:01:00* Test Item Value Reference Range Interpretation Comme nts LIPASE (test code = LIP) Unit/L 144-286 HCG SERUM [id number] 17:01:00* Test Item Value Reference Range Interpretation Comme nts HCG SERUM QUAL (test code = HCGQL) NEGATIVE NEGATIVE This HCGQL test is NOT applicable for MALE patients.Check with nurse about probable order error.If Tumor Marker Test needed, nurse should order test "HCGTU"(Test #550.50991) [id number] 17:01:00* Test Item Value Reference Range Interpretation Comme nts TROPONIN-I (test code = TROPI) ng/mL 0-0.045 URINALYSIS [id number] 16:58:00* Test Item Value Reference Range Interpretation Comme nts UA COLOR (test code = COLU) DARK YELLOW YELLOW A UA APPEARANCE (test code = APPU) HAZY CLEAR A UA GLUCOSE DIPSTICK (test code = DGLUU) norm mg/dL NEGATIVE UA BILIRUBIN DIPSTICK (test code = BILU) NEGATIVE mg/dL NEGATIVE UA KETONE DIPSTICK (test code = KETU) 5 (Trace) mg/dL NEGATIVE A UA SPECIFIC GRAVITY (test code = SGU) 1.020 1.001-1.035 UA BLOOD DIPSTICK (test code = COURTNEY) neg Warren/uL NEGATIVE UA PH DIPSTICK (test code = BREANN) 5.0 5.0-8.0 UA PROTEIN DIPSTICK (test code = PROU) 15 (TRACE) mg/dL Neg-15 A UA UROBILINIOGEN DIPSTICK (test code = URO) 1 mg/dL 0.0-0.2 A UA NITRITE DIPSTICK (test code = YANCY) NEGATIVE NEGATIVE UA LEUKOCYTE ESTERASE DIPSTICK (test code = LEUU) 25 Philipp/uL (Trace) uL NEGATIVE A UA WBC (test code = WBCU) per HPF 0-5 UA RBC (test code = RBCU) per HPF 0-5 UA EPITHELIAL CELLS (test code = EPIU) per HPF Few UA BACTERIA (test code = BACU) per HPF NONE Urine Source? Clean CatchBASIC METABOLIC [id number] 16:56:00* Test Item Value Reference Range Interpretation Comme nts SODIUM (test code = NA) mmol/L 135-148 POTASSIUM (test code = K) mmol/L 3.5-5.1 CHLORIDE (test code = CL) mmol/L 101-109 CARBON DIOXIDE (test code = CO2) mmol/L 21-32 ANION GAP (test code = GAP) mmol/L 10-20 GLUCOSE (test code = GLU) mg/dL 74-106 BLOOD UREA NITROGEN (test code = BUN) mg/dL 3-21 GLOMERULAR FILTRATION RATE ( test code = GFR) mL/min >=60 CREATININE (test code = CREAT) mg/dL 0.55-1.3 BUN/CREATININE RATIO (test c ode = BUN/CREA) 10-20 CALCIUM (test code = CA) mg/dL 8.4-10.2 HEPATIC FUNCTION [id number] 16:56:00* Test Item Value Reference Range Interpretation Comme nts TOTAL PROTEIN (test code = PROT) gram/dL 6.4-8.2 ALBUMIN (test code = ALB) g/dL 3.4-5.0 GLOBULIN (test code = GLOB) g/dL 2.7-4.2 ALBUMIN/GLOBULIN RATIO (test code = A/G) 0.75-1.50 BILIRUBIN TOTAL (test code = BILT) mg/dL 0.2-1.2 BILIRUBIN DIRECT (test code = BILD) mg/dL 0.0-0.20 SGOT/AST (test code = AST) IUnit/L 15-37 SGPT/ALT (test code = ALT) U/L 10-69 ALKALINE PHOSPHATASE TOTAL ( test code = ALKP) IUnit/L 45-117 [id number] 16:56:00* Test Item Value Reference Range Interpretation Comme nts LIPASE (test code = LIP) Unit/L 144-286 HCG SERUM [id number] 16:56:00* Test Item Value Reference Range Interpretation Comme nts HCG SERUM QUAL (test code = HCGQL) NEGATIVE NEGATIVE This HCGQL test is NOT applicable for MALE patients.Check with nurse about probable order error.If Tumor Marker Test needed, nurse should order test "HCGTU"(Test #550.05223) [id number] 16:56:00* Test Item Value Reference Range Interpretation Comme nts TROPONIN-I (test code = TROPI) ng/mL 0-0.045 CBC W/O [id number] 16:52:00* Test Item Value Reference Range Interpretation Comme nts WHITE BLOOD CELL (test code = WBC) 9.9 K/mm3 4.5-12.5 N RED BLOOD CELL (test code = RBC) 4.84 mill/mm3 3.7-5.2 N HEMOGLOBIN (test code = HGB) 11.2 gram/dL 11.5-15.5 L HEMATOCRIT (test code = HCT) 36.0 % 36.0-46.0 N MEAN CELL VOLUME (test code = MCV) 74.4 fL 80-98 L MEAN CELL HGB (test code = MCH) 23.1 picogram 27.0-33.0 L MEAN CELL HGB CONCETRATION (test code = MCHC) 31.1 gram/dL 33.0-36.0 L RED CELL DISTRIBUTION WIDTH (test code = RDW) 15.3 % 11.6-16.2 N RED CELL DISTRIBUTION WIDTH SD (test code = RDW-SD) 41.9 fL 37.0-51.0 N PLATELET COUNT (test code = PLT) 376 K/mm3 150-450 N MEAN PLATELET VOLUME (test c ode = MPV) 9.7 fL 6.7-11.0 N Notes Date/Time Note Provider Source 2023-08-26 08:39:00 [id number]:39:00 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 Patient states that she has been having cough with sore throat for all of last week. Patient endorses having headache with cough that is dry. She states that she went to a primary care doctor this past Monday and was swabbed for strep and COVID which were negative. She was started on an albuterol inhaler but states that the cough haspersisted. Patient denies any ear pain, sore throat, abdominal pain, changes inbladder. She has had a few loose stools. GeneralInitial Greet Date/Time 08/26/23 08 PresentationChief Complaint Cough Review of Systems Review of SystemsConstitutionalReports: Chills. Ears/Nose/ThroatReports: Nasal congestion. Denies: Earache R, Earache L, Earache bilat, Sore throat. RespiratoryReports: Cough, non-productive. Denies: Shortness of breath. CardiovascularDenies: Chest pain. GIDenies: Nausea, Vomiting. FemaleDenies: Dysuria. NeurologicReports: Headache. Past Medical History - AdultStated Complaint COUGH, CONGESTION, SORE THROATAllergiesCoded Allergies:No Known Allergies (08/26/23) Home MedicationsDiscontinued ScriptsDICYCLOMINE (BENTYL) 20 MG PO QID DICYCLOMINE (BENTYL) 20 MG PO QID #30 TABS Prov: 06/25/23 DC: 08/26/23 0849 Therapy completedONDANSETRON ODT (ZOFRAN ODT) 4 MG PO Q6H PRN PRN NAUSEA/VOMITING ONDANSETRON ODT (ZOFRAN ODT) 4 MG PO Q6H PRN PRN NAUSEA/VOMITING #15 TABS Prov: 06/25/23 DC: 08/26/23 0849 Therapy completedFERROUS SULFATE ER (SLOW RELEASE IRON) 142 MG PO DAILY FERROUS SULFATE ER (SLOW RELEASE IRON) 142 MG PO DAILY #30 TABS Prov: 06/25/23 DC: 08/26/23 0849 Therapy completed Discontinued Reported MedicationsAMOXICILLIN (AMOXIL) 500 MG PO Q12H Additional Medical HistoryWilms tumor at age 5, resolvedAdditional Surgical HistoryLeft kidney removal at age 5 due to Wilms tumorAdditional Family HistorySister with endometriosisAlcohol Use Alcohol use (SOCIAL)Drug Use MarijuanaAdditional Social HistoryHas reduce smoking habit from 10 black in miles daily to 1 cigar daily this past year. Physical Exam Vital SignsVital SignsFirst Documented: Result Date Time Pulse Ox 98 08/26 0833 B/P 128/74 08/26 0833 B/P Mean 92 08/26 833 O2 Delivery Room air 08/26 833 Temp 36.9 08/26 833 Pulse 104 08/26 833 Resp 17 08/26 833 Last Documented: Result Date Time Pulse Ox 98 08/26 0833 B/P 128/74 08/26 0833 B/P Mean 92 08/26 833 O2 Delivery Room air 08/26 833 Temp 36.9 08/26 833 Pulse 104 08/26 833 Resp 17 08/26 833 Review of Vital Signs Reviewed Physical ExamGeneral/Const General/Const Awake, Alert, No acute distress, Well appearing, Well developed, Well hydrated, Well nourished, Cooperative, Not toxic appearingMS Head Head Atraumatic, NormocephalicEyes Eyes Atraumatic, PERRL, EOMIEars/Nose/Throat Ears/Nose/Throat Atraumatic, Airway patent, Mucous membranes moistMS Neck Neck AtraumaticResp/Chest Respiratory/Chest Atraumatic, No respiratory distress, No rales, No rhonchi, No wheezing, No retractions Text/Dict NotesNo signs of respiratory distress. Patient breathing evenly and unlabored in thebed. Able to speak in full sentences.Cardiovascular Heart Rate/Rhythm Tachycardia. Abdomen/GI Abdomen/GI AtraumaticMS Back Back AtraumaticSkin Skin Atraumatic, Warm, DryNeurologic Neurologic Oriented X3, Speech NLPsychiatric Psychiatric Affect NL, Mood NL Interpretation Diagnostics Lab Results InterpretationResultsLaboratory Tests: 12/02 0844 Serology POC Influenza A Ag (Negative) Negative POC Influenza B Ag (Negative) Negative Recent Impressions:RADIOLOGY - XR CHEST 1 V 08/26 900 Report Impression - Status: SIGNED Entered: 08/26/2023912 IMPRESSION: Unremarkable frontal chest radiograph.Impression By: [email or web address] - Corby Briceno M.D. Re-Evaluation MDM Free Text MDM NotesFree Text MDM [id number] female presents with cough, congestion. Swabbed earlier in the weekfor strep and COVID which were negative. Will do a influenza swab and also a chest x-ray for the patient. Will give her a dose of Tessalon Perles here. Negative flu. ED CourseMedication(s) OrderedMedication(s) Ordered:Respiratory Tract Agents Sig/Paula Start time Last Medication Dose Route Stop Time Status Admin Benzonatate 100 MG X1ED STA 08/26 08 DC 08/26 PO 08/26 0840 0844 Patient Discharge Departure Vital Signs/ConditionVital SignsFirst Documented: Result Date Time Pulse Ox 98 08/26 0833 B/P 128/74 08/26 0833 B/P Mean 92 08/26 0833 O2 Delivery Room air 08/26 0833 Temp 36.9 08/26 0833 Pulse 104 08/26 0833 Resp 17 08/26 0833 Last Documented: Result Date Time Pulse Ox 98 08/26 0833 B/P 128/74 08/26 0833 B/P Mean 92 08/26 0833 O2 Delivery Room air 08/26 0833 Temp 36.9 08/26 0833 Pulse 104 08/26 0833 Resp 17 08/26 0833 All vital signs available at the time of this entry have been reviewed. Clinical ImpressionClinical ImpressionPrimary Impression: CoughSecondary Impressions: Viral syndrome Disposition DecisionDischarge )( Discharged to Home Yes )( Time 0924 )( Date 08/26/23 Discharge/Care Plan(Auto) PrescriptionsCurrent Visit ScriptsmethylPREDNISolone (MEDROL 4 MG DOSEPAK) 4 MG PO ASDIR methylPREDNISolone (MEDROL 4 MG DOSEPAK) 4 MG PO ASDIR #1 PACKET BENZONATATE (TESSALON) 100 MG PO Q8H PRN PRN COUGH BENZONATATE (TESSALON) 100 MG PO Q8H PRN PRN COUGH #20 CAPS Patient Instructions ED URI No AbxDeparture FormsWORK/SCHOOL EXCUSE VARIABLE May return to work/school 08/28/23 Discharge NoteI have spoken with the patient and/or caregivers. I have explained the patient'scondition, diagnoses and treatment plan based on the information available to meat this time. I have answered the patient's and/or caregiver's questions and addressed any concerns. The patient and/or caregivers have as good an understanding of the patient's diagnosis, condition and treatment plan as can beexpected at this point. The vital signs have been stable. The patient's condition is stable and appropriate for discharge from the emergency department. The patient will pursue further outpatient evaluation with the primary care physician or other designated or consulting physician as outlined in the discharge instructions. The patient and/or caregivers are agreeable to this planof care and follow-up instructions have been explained in detail. The patient and/or caregivers have received these instructions in written format and have expressed an understanding of the discharge instructions. The patient and/or caregivers are aware that any significant change in condition or worsening of symptoms should prompt an immediate return to this or the closest emergency department or a call to 911. at 1046RPT #:[id number] OF REPORTHCA [facility] department [id number]:39:00G.[id number] ilable for patient [id number]:47:02 [facility] 2023-06-25 14:52:00 [id number]4:52:00 [facility] ([facility] PROVIDER REPORTREPORT#:[id number] REPORT STATUS: SignedDATE:06/25/23 TIME: 2 PATIENT: ERWIN GAYLE UNIT #: [id number]#: [id number] ROOM/BED:AGE: 27 SEX: F PCP PHYS: Chris AyalaERVANNALISA AUTHOR: Lissy Cunha 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 She reports she has had pain for the past 2 days with nonbilious vomiting. Shedenies fevers. She denies urinary symptoms. She reports she went to [facility] urgent care just prior to ER arrival and had blood work and urine completed which were all normal. She reports she was sent here to rule out appendicitis. GeneralConfirmed Patient YesPatient Type New patientInitial Greet Date/Time 06/25/23 1440 PresentationChief Complaint Abdominal pain, Vomiting moderateHx Obtained From PatientSudden in Onset? NoOnset Occurred Days agoSymptom Duration Since onsetCaused by No trauma by historyLocation RLQQuality PainfulPain/Sev: Current Moderate ContextImmunization Status General All up to date Risk-Abd Pain F Under 40)( Ectopic Risk factors reviewed Review of Systems ROS StatementsAll systems rev neg except as marked. Focused Review of SystemsGIReports: Abdominal pain, Vomiting. Past Medical History - AdultStated Complaint ABDOMINAL BLEEDINGAllergiesCoded Allergies:No Known Allergies (09/18/21) Home MedicationsDiscontinued ScriptsIBUPROFEN (MOTRIN) 800 MG PO TID PRN PRN PAIN IBUPROFEN (MOTRIN) 800 MG PO TID PRN PRN PAIN #30 TABS Prov: 02/17/22 DC: 06/25/23 1504 Therapy completed as InptCYCLOBENZAPRINE (FLEXERIL) 10 MG PO Q8H PRN PRN MUSCLE SPASMS/PAIN CYCLOBENZAPRINE (FLEXERIL) 10 MG PO Q8H PRN PRN MUSCLE SPASMS/PAIN #15 TABS Prov: 02/17/22 DC: 06/25/23 1504 Therapy completedBUTALBITAL/APAP/CAFF 50/300/40 MG (FIORICET) 1 CAP PO Q4H PRN PRN head pain BUTALBITAL/APAP/CAFF 50/300/40 MG (FIORICET) 1 CAP PO Q4H PRN PRN head pain#30 CAPS Prov: 02/17/22 DC: 06/25/23 1504 Therapy completed Reported MedicationsAMOXICILLIN (AMOXIL) 500 MG PO Q12H Discontinued Reported MedicationsACETAMINOPHEN/CAFFEINE (EXCEDRIN TENSION HEADACHE 500/65 MG) 2 TAB PO Q6H PRN PRN HEADACHE IBUPROFEN (ADVIL) 600 MG PO Q8H PRN PRN HEADACHE IBUPROFEN (ADVIL) 400 MG PO Q6H PRN PRN HEADACHE NAPROXEN SODIUM (ALEVE) 220 MG PO Q12H PRN PRN HEADACHE Additional Medical HistoryWilms tumor at age 5, resolvedAdditional Surgical HistoryLeft kidney removal at age 5 due to Wilms tumorAdditional Family HistorySister with endometriosisAlcohol Use Alcohol use (SOCIAL)Drug Use MarijuanaSmoking status for patients 13 years old or older: Current some day smokerAdditional Social HistoryHas reduce smoking habit from 10 black in [place] daily to 1 cigar daily this past year. Physical Exam Vital SignsVital SignsFirst Documented: Result Date Time Pulse Ox 99 06/25 1446 B/P 128/82 06/25 1446 B/P Mean 97 06/25 144 O2 Delivery Room air 06/25 144 Temp 36.8 06/25 144 Pulse 105 06/25 1446 Resp 16 06/25 1446 Last Documented: Result Date Time Pulse Ox 99 06/25 1700 B/P 148/92 06/25 1700 B/P Mean 110 06/25 170 O2 Delivery Room air 06/25 170 Temp 36.8 06/25 170 Pulse 72 06/25 170 Resp 16 06/25 1700 Review of Vital Signs Reviewed Focused PEGeneral/Const General/Const Awake, Alert, Well appearingResp/Chest Respiratory/Chest Breath sounds NL, Breath sounds = bilat, No respiratory distress, No rales, No rhonchi, No wheezingCardiovascular Cardiovascular Heart rate NL, Regular rhythm, Heart sounds NL, Peripheral circulation NLAbdomen/GI Abdomen/GI Soft, No rebound, BS normoactive, No distention, No hernia, No palpable mass Tenderness/Guarding/Rebound Tender RLQ, Guarding voluntary. MS Back Back Inspection NL, Non-tender, No CVA tendernessSkin Skin Color NL, Warm, Dry, Turgor NLNeurologic Neurologic Oriented X3, Speech NL, No motor deficits, No sensory deficits Interpretation Diagnostics Lab Results InterpretationResultsLaboratory Tests 06/25/23 1525:[Embedded Image Not Available] 06/25/23 1510:[Embedded Image Not Available]Laboratory Tests: 06/25 06/25 1528 1525 Hematology WBC (4.5 - 12.5 K/mm3) 11.1 RBC (3.7 - 5.2 mill/mm3) 4.42 Hgb (11.5 - 15.5 gram/dL) 9.8 L Hct (36.0 - 46.0 %) 32.4 L MCV (80 - 98 fL) 73.3 L MCH (27.0 - 33.0 picogram) 22.2 L MCHC (33.0 - 36.0 gram/dL) 30.2 L RDW (11.6 - 16.2 %) 18.0 H RDW Std Deviation (37.0 - 51.0 fL) 48.2 Plt Count (150 - 450 K/mm3) 466 H MPV (6.7 - 11.0 fL) 8.8 Toxicology Urine Opiates Screen (NEGATIVE) POSITIVE H Urine Barbiturates (NEGATIVE) NEGATIVE Ur Phencyclidine Scrn (NEGATIVE) NEGATIVE Ur Amphetamines Screen (NEGATIVE) NEGATIVE U Benzodiazepines Scrn (NEGATIVE) NEGATIVE Urine Cocaine Screen (NEGATIVE) NEGATIVE Urine Cannabinoids (NEGATIVE) NEGATIVE Urines Urine Color (YELLOW) PINKISH H Urine Appearance (CLEAR) TURBID H Urine pH (5.0 - 8.0) 5.0 Ur Specific [place] (1.001 - 1.035) 1.020 Urine Protein (Neg - 15 mg/dL) 100 (2+) H Urine Glucose (UA) (NEGATIVE mg/dL) norm Urine Ketones (NEGATIVE mg/dL) 5 (Trace) H Urine Blood (NEGATIVE Warren/uL) 250 (4+) H Urine Nitrite (NEGATIVE) NEGATIVE Urine Bilirubin (NEGATIVE mg/dL) NEGATIVE Urine Urobilinogen (0.0 - 0.2 mg/dL) 1 H Ur Leukocyte Esterase (NEGATIVE uL) 100 Philipp/uL (1+) H Urine RBC (0 - 5 per HPF) TNTC H Urine WBC (0 - 5 per HPF) 0-2 Ur Epithelial Cells (Few per HPF) FEW Urine Bacteria (NONE per HPF) RARE Urine HCG, Qual NEGATIVE 06/25 1510 Chemistry Sodium (136 - 145 mmol/L) 139 Potassium (3.5 - 5.1 mmol/L) 3.7 Chloride (101 - 109 mmol/L) 104 Carbon Dioxide (21 - 32 mmol/L) 27.0 Anion Gap (10 - 20 mmol/L) 12 BUN (3 - 21 mg/dL) 7 Creatinine (0.55 - 1.3 mg/dL) 0.71 Glomerular Filtr Rate (>=60 mL/min) > 60 BUN/Creatinine Ratio (10 - 20) 9.9 L Glucose (74 - 106 mg/dL) 95 Calcium (8.4 - 10.2 mg/dL) 8.7 Total Bilirubin (0.0 - 1.0 mg/dL) 0.30 Direct Bilirubin (0.0 - 0.30 mg/dL) 0.10 AST (6 - 32 U/L) 19 ALT (12 - 78 U/L) 20 Total Alk Phosphatase (38 - 126 U/L) 75 Total Protein (6.5 - 8.4 g/dL) 7.9 Albumin (3.4 - 4.8 g/dL) 2.8 L Globulin (1 - 10 G/DL) 5.1 Albumin/Globulin Ratio (0.75 - 1.50 RATIO) 0.55 L Lipase (16 - 77 U/L) 34 Serum , Qual (NEGATIVE) NEGATIVE Recent Impressions:CAT SCAN - CT ABD PELVIS W/CONT 06/25 1530 Report Impression - Status: SIGNED Entered: 06/25/2023 1631 IMPRESSION: No acute intra-abdominal process. Normal appendix. New septated 3.4 cm right hepatic cyst. Recommend MRI for furthercharacterization. Peripherally enhancing 2.7 cm right ovarian lesion, suspect involutingfollicle/cyst. Small pelvic free fluid. LOCATION: [facility] Impression By: Jimmy Avila D.O. Lab Imaging StatementLaboratory radiographic studies reviewed and considered in the medical decision-making. Point of Care TestingPulse Oximetry Pulse Ox % 99 On: Room air Interpretation Interpreted by az Time 1448 Re-Evaluation MDM Free Text MDM NotesFree Text MDM [id number] female presents for evaluation of right lower quadrant abdominal pain. History obtained by patient. Labs and imaging independently reviewed by myself. Reviewed labs and imaging with patient. Anemia on CBC with H H of 9.8 and 32.4. Chemistry unremarkable. Hematuria on UA although no signs of infection. Patient reports vaginal bleeding due to uterine fibroids. She reports she has a follow-up appointment with gynecology on July 06. Appendixnormal on ultrasound. No acute intra-abdominal process noted. Radiologist did note a right hepatic cyst. Discussed need for follow-up with GI for further evaluation. Repeat abdominal examination is benign. No peritoneal signs. Patient tolerating p.o. well. Patient stable for discharge and outpatient follow-up. ER return precautions given. )( Re-Evaluation/Progress #1Text/Dict NotePatient refused pain medication in ER and states she would rather have prescription for pain medicine.Time of Re-Eval 1538)( Re-Eval Status Improved Re-Evaluation/Progress #2Time of Eval 1642Re-Eval Status ImprovedRe-Eval Abdomen Soft, Non-tender, No guarding, No rebound, BS normoactive, McBurney's non-tender, No distentionEval Following Treatment Pt. feels better, Condition improved, Tolerate liquids,no N/VPlan Post Re-Eval Plan discharge Abd Pain MDM Note F < 40The patient is resting comfortably and feels better, is alert and in no distress. The repeat examination is unremarkable and benign; in particular, there is no discomfort at McBurney's point. The history, exam, diagnostic testing, and current condition do not suggest acute appendicitis, bowel obstruction, tubovarian abscess, ectopic , ovarian torsion, acute cholecystitis, bowel perforation, major gastrointestinal bleeding, severe diverticulitis, sepsis, or other significant pathology to warrant further testing, continued ED treatment, admission, or surgical evaluation at this point. The vital signs have been stable. The patient does not have uncontrollable pain, intractable vomiting, or other significant symptoms. The patient's condition is stable and appropriate for discharge. The patient will pursue further outpatient evaluation with the primary care physician or other designated or consulting physician as indicated in the discharge instructions. ED CourseMedication(s) OrderedMedication(s) Ordered:Central Nervous System Agents Sig/Paula Start time Last Medication Dose Route Stop Time Status Admin Ketorolac 15 MG X1ED STA 06/25 1451 DC Tromethamine IV 06/25 1452 Diagnostic Agents Sig/Paula Start time Last Medication Dose Route Stop Time Status Admin Iopamidol 0 .STK-MED ONE 06/25 1536 DC 06/25 .ROUTE 1545 Electrolytic, Caloric, And Norma Sig/Paula Start time Last Medication Dose Route Stop Time Status Admin Sodium Chloride 1,000 ML X1ED STA 06/25 1451 DC 06/25 IV 06/25 1550 1532 Gastrointestinal Drugs Sig/Paula Start time Last Medication Dose Route Stop Time Status Admin Ondansetron HCl 4 MG X1ED PRN PRN 06/25 1500 DC 06/25 IV 1532 Differential Diagnosis)( Differential Diagnosis Appendicitis, Bladder outlet obstruct, Bowel obstruction, Cholangitis, Cholecystitis, Cholelithiasis, Constipation, Intrauterine , Pyelonephritis, Urinary obstruction, Urinary retention, Urinary tract infection, Urolithiasis Patient Discharge Departure Vital Signs/ConditionVital SignsFirst Documented: Result Date Time Pulse Ox 99 06/25 1446 B/P 128/82 06/25 1446 B/P Mean 97 06/25 1446 O2 Delivery Room air 06/25 1446 Temp 36.8 06/25 1446 Pulse 105 10 1446 Resp 16 06/25 1446 Last Documented: Result Date Time Pulse Ox 99 06/25 1700 B/P 148/92 06/25 1700 B/P Mean 110 06/25 1700 O2 Delivery Room air 06/25 1700 Temp 36.8 06/25 1700 Pulse 72 06/25 1700 Resp 16 06/25 1700 All vital signs available at the time of this entry have been reviewed. Condition Stable Clinical ImpressionClinical ImpressionPrimary Impression: Abdominal painSecondary Impressions: Anemia, Hepatic cyst, History of uterine fibroid Disposition DecisionDischarge )( Discharged to Home Yes )( Time 1650 )( Date 06/25/23 Discharge/Care PlanCounseled Regarding Diagnosis, Prescriptions, Need for follow-up, When to returnto ED(Auto) PrescriptionsCurrent Visit ScriptsDICYCLOMINE (BENTYL) 20 MG PO QID DICYCLOMINE (BENTYL) 20 MG PO QID #30 TABS ONDANSETRON ODT (ZOFRAN ODT) 4 MG PO Q6H PRN PRN NAUSEA/VOMITING ONDANSETRON ODT (ZOFRAN ODT) 4 MG PO Q6H PRN PRN NAUSEA/VOMITING #15 TABS FERROUS SULFATE ER (SLOW RELEASE IRON) 142 MG PO DAILY FERROUS SULFATE ER (SLOW RELEASE IRON) 142 MG PO DAILY #30 TABS Prescriptions Reviewed Risks, Benefits, Alternative treatmentPatient Instructions ED Abdominal Pain Adult, ED Anemia No Type Adult, ED Uterine Fibroids Discharge NoteI have spoken with the patient and/or caregivers. I have explained the patient'scondition, diagnoses and treatment plan based on the information available to meat this time. I have answered the patient's and/or caregiver's questions and addressed any concerns. The patient and/or caregivers have as good an understanding of the patient's diagnosis, condition and treatment plan as can beexpected at this point. The vital signs have been stable. The patient's condition is stable and appropriate for discharge from the emergency department. The patient will pursue further outpatient evaluation with the primary care physician or other designated or consulting physician as outlined in the discharge instructions. The patient and/or caregivers are agreeable to this planof care and follow-up instructions have been explained in detail. The patient and/or caregivers have received these instructions in written format and have expressed an understanding of the discharge instructions. The patient and/or caregivers are aware that any significant change in condition or worsening of symptoms should prompt an immediate return to this or the closest emergency department or a call to 911. Quality MeasuresBP F/U for HTN Referred for BP f/u < 4wk, F/u with PCP/other docPreg Test for Women w/Abd Pain Female age 14-50, Complaint of abdominal pn, Any preg test orderedTobacco Screening/Cessation 18 years or older, Tobacco user, Counseled 3-10 minutes Suresh Bradshaw 06/26/23 0858:Patient Discharge Departure Discharge/Care PlanReferralsProvider Referral: Fabian Mead MD Address: [address] [place] [address] Resource Referral: [facility] - [facility] Address: [address] [place] [address] Resource Referral: [facility] - OBGYN Address: [address] [place] [address] Provider Referral: Yury Villalobos MD Address: [address] [place] [address] Resource Referral: [facility] Address: [address] [place] [address] Supervising Physician Note MidLv/Doc Saw Pt 2The PA/LICENSED NUCLEAR OPERATOR has seen the patient and I have performed this visit along with the involvement of the PA/LICENSED NUCLEAR OPERATOR. I agree with the PA/robotic welder findings and plan. I have performed all aspects of MDM as documented including: evaluation of the patient/patient's condition(s), review and analysis of available data, and determinationof risk of patient management decisions. at 2249 at 0858RPT #:[id number] OF REPORTEDEmergency department wlweer6452-66-02T79:52:00V.[id number] ilable for patient [id number]-65K42:50:10 [facility] 2022-02-17 14:36:00 [id number] [id number]+Gr1KtNWboLTY6+7019-67-93T03:36:0 0 [facility] ([facility]ITAL[facility]Y PROVIDER REPORTREPORT#:[id number] REPORT STATUS: SignedDATE:02/17/22 TIME: 1436 PATIENT: ERWIN GAYLE UNIT #: [id number]#: [id number] ROOM/BED:AGE: 26 SEX: F PCP PHYS: No Primary or Family PhysicianSERVICE AUTHOR: Sanket Desir MD * ALL edits or amendments must be made on the electronic/computer document * HPI-Extremity Prob Lower GeneralConfirmed Patient YesInitial Greet Date/Time 02/17/22 1413 PresentationChief Complaint headacheHx Obtained From PatientExacerbated by light Free Text HPI NotesFree Text HPI NotesDenirmala Gayle is a 26 yr old woman who denies significant medical historypresents the ER with headache for several days. Headache sharp in frontal/posterior. No falls or trauma or vision changes or neck stiffness or fever cough or neck pain. He tries otrg-lsj-urvvgew medication with minimal relief. She has had headaches off and on for a while. This is worse than her visit and September. She also notes pain to the medial aspect of her right calf area. She made her out walking her dog. No leg swelling or edema or history of DVT or PE or steroid use or recent immobilization. No pain behind knee and no swelling orloss of sensation. Risk-Extremity Prob Lower Risk StratificationWell's Criteria for DVT Well's Criteria for DVT Response Value Active Cancer? No 0 Immob Lower Extremity? No 0 Bed >3 Days/Surg Last 4 Weeks? No 0 Local Tend Deep Veinous Sys? No 0 Entire Leg Swollen? No 0 Calf Swelling >3cm? No 0 Pit Edema in Symptomatic Leg? No 0 Collat Superficial Veins? No 0 Previous Documented DVT? No 0 Total 0 Review of Systems ROS StatementsAll systems rev neg except as marked. Focused Review of SystemsConstitutionalDenies: Chills, Fatigue, Fever, Lethargy, Malaise, Recent wt loss, Weakness - generalized. MusculoskeletalReports: Extremity pain. NeurologicReports: Headache. Denies: Lightheaded, Numbness, Problem walking. Past Medical History - AdultStated Complaint HEADACHEAllergiesCoded Allergies:No Known Allergies (09/18/21) Home MedicationsDiscontinued ScriptsguaiFENesin/DEXTROMETHORPHAN (guaiFENesin-DM (SF) 100-10 MG/5ML) 10 ML PO Q6H PRN PRN COUGH guaiFENesin/DEXTROMETHORPHAN (guaiFENesin-DM (SF) 100-10 MG/5ML) 10 ML PO Q6H PRN PRN COUGH #150 ML Prov: 09/18/21 DC: 02/17/22 1444 Therapy completedETHINYL EST/DROSPIRENONE (LILIBETH) 1 TAB PO DAILY ONDANSETRON ODT (ZOFRAN ODT) 4 MG PO Q6H PRN PRN NAUSEA/VOMITING ONDANSETRON ODT (ZOFRAN ODT) 4 MG PO Q6H PRN PRN NAUSEA/VOMITING #15 TABS Prov: 02/18/21 DC: 02/17/22 1444 Therapy completedCYCLOBENZAPRINE (FLEXERIL) 10 MG PO Q8H PRN PRN MUSCLE SPASMS/PAIN CYCLOBENZAPRINE (FLEXERIL) 10 MG PO Q8H PRN PRN MUSCLE SPASMS/PAIN #15 TABS Prov: 07/07/21 DC: 02/17/22 1444 Therapy completed Reported MedicationsACETAMINOPHEN/CAFFEINE (EXCEDRIN TENSION HEADACHE 500/65 MG) 2 TAB PO Q6H PRN PRN HEADACHE IBUPROFEN (ADVIL) 600 MG PO Q8H PRN PRN HEADACHE IBUPROFEN (ADVIL) 400 MG PO Q6H PRN PRN HEADACHE NAPROXEN SODIUM (ALEVE) 220 MG PO Q12H PRN PRN HEADACHE Review of Nursing Notes Rapid assess notes revPt reports no significant: Past medical history, Past surgical history, Family history, Social historyAdditional Medical HistoryWilms tumor at age 5, resolvedAdditional Surgical HistoryLeft kidney removal at age 5 due to Wilms tumorAdditional Family HistorySister with endometriosisAlcohol Use Alcohol use (SOCIAL)Drug Use MarijuanaSmoking status: Smoking status for patients 13 years old or older: Never SmokerAdditional Social HistoryHas reduce smoking habit from 10 black in [place] daily to 1 cigar daily this past year. Physical Exam Vital SignsVital SignsFirst Documented: Result Date Time Pulse Ox 100 02/17 1422 B/P 157/90 02/17 1422 B/P Mean 112 02/17 1422 O2 Delivery Room air 02/17 1422 Temp 98.8 02/17 1422 Pulse 108 02/17 1422 Resp 16 02/17 1422 Last Documented: Result Date Time Pulse Ox 99 02/17 1545 B/P 136/78 02/17 1545 B/P Mean 97 02/17 1545 O2 Delivery Room air 02/17 1545 Pulse 100 02/17 1545 Resp 17 02/17 1545 Temp 98.8 02/17 1422 Review of Vital Signs Reviewed Basic Physical ExamBasic PE HEAD: Atraumatic/NC, EYES: PERRL, conj clear, ENT: Membranes moist, NECK: Supple, UP EXT: No gross abnormal, PSYCH: NL thought content Focused PEGeneral/Const General/Const Awake, Alert, Well appearingResp/Chest Respiratory/Chest Breath sounds NL, Breath sounds = bilat, No respiratory distress, No rales, No rhonchi, No wheezingCardiovascular Cardiovascular Heart rate NL, Regular rhythm, Heart sounds NL, Peripheral circulation NLMS Lower Extrem Lower Ext/Pelvis/MS Inspection NL, Full range of motion Text/Dict NotesRight medial gastrocnemius muscle with tenderness palpation. No palpable cords. No edema. Pulses normal. Cap refill normal.MS Ankle/Foot Ankle/Foot Atraumatic, Inspection NL, Full range of motion, No swelling, No erythema, Non-tender, No deformity, Neurologic intact, Vascular intact, No ligamentous injury, Tendon function NL, No compartment syndrome, No circumferential injury, No edema, Gait NLSkin Skin Color NL, Warm, Dry, Intact, Turgor NL, No swellingNeurologic Neurologic Oriented X3, Speech NL, No motor deficits, No sensory deficits Interpretation Diagnostics Lab Results InterpretationResultsLaboratory Tests 02/17/22 1500:[Embedded Image Not Available]Laboratory Tests: 02/17 1500 Chemistry Sodium (135 - 148 mmol/L) 140 Potassium (3.5 - 5.1 mmol/L) 4.0 Chloride (101 - 109 mmol/L) 107 Carbon Dioxide (21 - 32 mmol/L) 23.0 Anion Gap (10 - 20 mmol/L) 14 BUN (3 - 21 mg/dL) 15 Creatinine (0.55 - 1.3 mg/dL) 0.86 Glomerular Filtr Rate (>=60 mL/min) > 60 BUN/Creatinine Ratio (10 - 20) 17.4 Glucose (74 - 106 mg/dL) 90 Calcium (8.4 - 10.2 mg/dL) 8.8 Serum , Qual (NEGATIVE) NEGATIVE Hematology WBC (4.5 - 12.5 K/mm3) 9.9 RBC (3.7 - 5.2 mill/mm3) 4.20 Hgb (11.5 - 15.5 gram/dL) 9.1 L Hct (36.0 - 46.0 %) 30.0 L MCV (80 - 98 fL) 71.4 L MCH (27.0 - 33.0 picogram) 21.7 L MCHC (33.0 - 36.0 gram/dL) 30.3 L RDW (11.6 - 16.2 %) 16.7 H RDW Std Deviation (37.0 - 51.0 fL) 44.0 Plt Count (150 - 450 K/mm3) 559 H MPV (6.7 - 11.0 fL) 8.8 Recent Impressions:CAT SCAN - CT HEAD/BRAIN W/O CONT 02/17 1430 Report Impression - Status: SIGNED Entered: 02/17/2022 1521 IMPRESSION: Negative CT head. Location: HCAImpression By: [email or web address] - Jorgito Nguyen MD Re-Evaluation MDM Free Text MDM NotesFree Text MDM Notescalf symmetric bilerally. euqal measurements. Negative for Wells criteria for DVT. Because of persistent prolonged headache and change in type of headache will obtain CT scan. CT unremarkable. Patient feels improved after medicationsand is well for outpatient follow-up with primary care team. Re-Evaluation/ProgressRe-Evaluation/Progress Text/Dict Noteno head or leg painresolvedFROMNAD Time of Re-Eval 1537 Re-Eval Status Improved Compartment SyndromeThere are no signs or symptoms of compartment syndrome in the injured extremity at the time of this examination. Any pain the patient has is in proportion to the injury, the peripheral circulation is intact, capillary refill is not delayed, and there is no numbness, tingling or paresthesia. Tissue Perfusion ReassessmentPatient tissue perfusion reassessment completed. ED CourseMedication(s) OrderedMedication(s) Ordered:Antihistamine Drugs Sig/Paula Start time Last Medication Dose Route Stop Time Status Admin Diphenhydramine HCl 25 MG X1ED STA 02/17 1436 DC 02/17 IV 02/17 1437 1452 Central Nervous System Agents Sig/Paula Start time Last Medication Dose Route Stop Time Status Admin Acetaminophen 1,000 MG X1ED STA 02/17 1436 DC 02/17 PO 02/17 1437 1452 [facility]astro[facility] Drugs Sig/Paula Start time Last Medication Dose Route Stop Time Status Admin Prochlorperazine 10 MG X1ED STA 02/17 1436 DC 02/17 Edisylate IV 02/17 1437 1452 Patient Discharge Departure Vital Signs/ConditionVital SignsFirst Documented: Result Date Time Pulse Ox 100 02/17 1422 B/P 157/90 02/17 1422 B/P Mean 112 02/17 1422 O2 Delivery Room air 02/17 142 Temp 98.8 02/17 1422 Pulse 108 02/17 1422 Resp 16 02/17 142 Last Documented: Result Date Time Pulse Ox 99 02/17 1545 B/P 136/78 02/17 1545 B/P Mean 97 02/17 1545 O2 Delivery Room air 02/17 1545 Pulse 100 02/17 1545 Resp 17 02/17 1545 Temp 98.8 02/17 1422 All vital signs available at the time of this entry have been reviewed. Condition Stable, Improved Clinical ImpressionClinical ImpressionPrimary Impression: HeadacheSecondary Impressions: Gastrocnemius strain, MEDIAL GASTROCNEMIUS MUSCLE STRAIN RIGHT LEG Disposition DecisionDischarge )( Discharged to Home Yes )( Time 1539 )( Date 02/17/22 Discharge/Care PlanCounseled Regarding Diagnosis, Lab results, Imaging studies, Prescriptions, Needfor follow-up, When to return to ED(Auto) PrescriptionsCurrent Visit ScriptsIBUPROFEN (MOTRIN) 800 MG PO TID PRN PRN PAIN IBUPROFEN (MOTRIN) 800 MG PO TID PRN PRN PAIN #30 TABS CYCLOBENZAPRINE (FLEXERIL) 10 MG PO Q8H PRN PRN MUSCLE SPASMS/PAIN CYCLOBENZAPRINE (FLEXERIL) 10 MG PO Q8H PRN PRN MUSCLE SPASMS/PAIN #15 TABS BUTALBITAL/APAP/CAFF 50/300/40 MG (FIORICET) 1 CAP PO Q4H PRN PRN head pain BUTALBITAL/APAP/CAFF 50/300/40 MG (FIORICET) 1 CAP PO Q4H PRN PRN head pain#30 CAPS Prescriptions Reviewed Risks, BenefitsPatient Instructions ED Headache Unspecified, ED Muscle Strain, ExtremityReferralsProvider Group: PRIMARY CARE Follow-Up: 1-2 Days Departure FormsPCP LISTWORK/SCHOOL EXCUSE-CAREGIVER 2 Discharge NoteI have spoken with the patient and/or caregivers. I have explained the patient'scondition, diagnoses and treatment plan based on the information available to meat this time. I have answered the patient's and/or caregiver's questions and addressed any concerns. The patient and/or caregivers have as good an understanding of the patient's diagnosis, condition and treatment plan as can beexpected at this point. T at 1811RPT #:[id number] OF REPORTHCA [facility] department [id number]:36:00V.[id number] ilable for patient ytnoEMRRYXDMJLOKIR3852-86-37T88:11:53 [facility] 2021-10-21 04:57:00 [id number]:57:00 [facility] ([facility])EMERGENCY PROVIDER REPORTREPORT#:[id number] REPORT STATUS: SignedDATE:10/21/21 TIME: 456 PATIENT: ERWIN GAYLE UNIT #: [id number]#: [id number] ROOM/BED:AGE: 26 SEX: F PCP PHYS: Undefined ProviderSERVICE AUTHOR: Ethan Gaytan MD * ALL edits or amendments must be made on the electronic/computer document * HPI-Headache Free Text HPI NotesFree Text HPI [id number]-lsjy-qwi female with past medical history significant for solitary kidney presented to the ED with complaints of right-sided headache that has been going on for the past 3 days. Patient says that she has tried uxyw-shs-mvbvqbn medications but the headaches have continued to worsen so the patient came into the ED for further evaluation. Patient also complains of photophobia and blurryvision in the right eye. No fevers or chills. No nausea vomiting. Patient reports diarrhea. No weakness or tingling numbness. No sick contacts. GeneralConfirmed Patient YesInitial Greet Date/Time 10/21/21 0417 PresentationChief Complaint HeadacheHx Obtained From PatientSudden in Onset? NoOnset Occurred Days ago (3)Symptom Duration Since onsetProgression since Onset ConstantLocation Frontal RQuality PainfulRadiationDoes not radiate. Severity: Onset ModerateSeverity: Current Moderate Risk-Headache Risk Stratification)( Subarachnoid Hemorrhage Risk factors reviewed)( IC Mass Lesion Risk factors reviewed Review of Systems ROS StatementsAll systems rev neg except as marked. Focused Review of SystemsNeurologicReports: Headache. Past Medical History - AdultStated Complaint HEADACHE X3 DAYSAllergiesCoded Allergies:No Known Allergies (09/18/21) Home MedicationsActive ScriptsguaiFENesin/DEXTROMETHORPHAN (guaiFENesin-DM (SF) 100-10 MG/5ML) 10 ML PO Q6H PRN PRN COUGH guaiFENesin/DEXTROMETHORPHAN (guaiFENesin-DM (SF) 100-10 MG/5ML) 10 ML PO Q6H PRN PRN COUGH #150 ML Prov: 09/18/21ETHINYL EST/DROSPIRENONE (LILIBETH) 1 TAB PO DAILY ONDANSETRON ODT (ZOFRAN ODT) 4 MG PO Q6H PRN PRN NAUSEA/VOMITING ONDANSETRON ODT (ZOFRAN ODT) 4 MG PO Q6H PRN PRN NAUSEA/VOMITING #15 TABS Prov: 02/18/21CYCLOBENZAPRINE (FLEXERIL) 10 MG PO Q8H PRN PRN MUSCLE SPASMS/PAIN CYCLOBENZAPRINE (FLEXERIL) 10 MG PO Q8H PRN PRN MUSCLE SPASMS/PAIN #15 TABS Prov: 07/07/21 Calculated Suicide Risk (nurs) No riskReview of Nursing Notes Rev avail, and agreeAdditional Medical HistoryWilms tumor at age 5, resolvedAdditional Surgical HistoryLeft kidney removal at age 5 due to Wilms tumorAdditional Family HistorySister with endometriosisAlcohol Use Alcohol use (SOCIAL)Drug Use MarijuanaSmoking status: Smoking status for patients 13 years old or older: Current every day smoker Date last smoked: 10/21/21Additional Social HistoryHas reduce smoking habit from 10 black in miles daily to 1 cigar daily this past year. Physical Exam Vital SignsVital SignsFirst Documented: Result Date Time Pulse Ox 100 10/21 0417 B/P 121/85 10/21 0417 B/P Mean 97 10/21 0417 O2 Delivery Room air 10/21 416 Temp 36.6 10/21 0417 Pulse 94 10/21 0417 Resp 10/21 Last Documented: Result Date Time Pulse Ox 100 10/21 0505 B/P 127/80 10/21 0505 B/P Mean 95 10/21 0505 O2 Delivery Room air 10/21 0505 Pulse 87 10/21 0505 Resp 18 10/21 0505 Temp 36.6 01/27 0417 Review of Vital Signs Reviewed, Vital signs normal Focused PEGeneral/Const General/Const Awake, AlertMS Head Head NormocephalicEyes Eyes PERRL, EOMI, No photophobia, Conjunctiva NL, Temporal arteries NLEars/Nose/Throat Ears/Nose/Throat Airway patent, Mucous membranes moist, Pharynx NL, No sinus tendernessMS Neck Neck Supple, No meningismus, Full range of motion, No swelling, Non-tender, No massesResp/Chest Respiratory/Chest Breath sounds NL, Breath sounds = bilat, No respiratory distress, No rales, No rhonchi, No wheezingCardiovascular Cardiovascular Heart rate NL, Regular rhythm, Heart sounds NL, Peripheral circulation NLAbdomen/GI Abdomen/GI Soft, Non-tender, No guarding, No reboundSkin Skin Color NL, No rash, Warm, Dry, Turgor NLNeurologic Neurologic Oriented X3, Speech NL, No motor deficits, No sensory deficits, CNII - XII intact, Cerebellar NL Interpretation Diagnostics Point of Care TestingPulse Oximetry Pulse Ox % 100 On: Room air Interpretation Interpreted by me, Pulse oximetry normal Time 416 Re-Evaluation MDM Free Text MDM NotesFree Text MDM [id number]-hqdy-psg female with past medical history significant for solitary kidney presented to the ED with complaints of right-sided headache that has been going on for the past 3 days. Normal vital signs. Normal exam. No neurological deficits. Patient was treated with IV fluids, Toradol, Reglan and Zofran. Patient symptoms improved. Patient will be discharged home with outpatient follow-up. )( Re-Evaluation/Progress #1)( Re-Eval Status Improved ED CourseMedication(s) OrderedMedication(s) Ordered:Antihistamine Drugs Sig/Paula Start time Last Medication Dose Route Stop Time Status Admin Diphenhydramine HCl 25 MG X1ED STA 10/21 425 DC 10/21 IV 10/21 426 042 Central Nervous System Agents Sig/Paula Start time Last Medication Dose Route Stop Time Status Admin Ketorolac 30 MG X1ED STA 10/21 425 DC 10/21 Tromethamine IV 10/21 426 042 Electrolytic, Caloric, And Norma Sig/Paula Start time Last Medication Dose Route Stop Time Status Admin Sodium Chloride 1,000 ML X1ED STA 10/216 DCD 10/21 IV 10/21 0525 0430 Gastrointestinal Drugs Sig/Paula Start time Last Medication Dose Route Stop Time Status Admin Metoclopramide HCl 10 MG X1ED STA 10/21 425 DC 10/21 IV 10/21 426 0429 Patient Discharge Departure Vital Signs/ConditionVital SignsFirst Documented: Result Date Time Pulse Ox 100 10/21 0417 B/P 121/85 10/21 0417 B/P Mean 97 10/21 0417 O2 Delivery Room air 10/21 416 Temp 36.6 10/21 0417 Pulse 94 10/21 0417 Resp 18 10/217 Last Documented: Result Date Time Pulse Ox 100 10/21 0505 B/P 127/80 10/21 0505 B/P Mean 95 10/21 0505 O2 Delivery Room air 10/21 050 Pulse 87 10/21 0505 Resp 10/21 050 Temp 36.6 10/21 0417 All vital signs available at the time of this entry have been reviewed. Condition Improved Clinical ImpressionClinical ImpressionPrimary Impression: Headache Disposition DecisionDischarge )( Discharged to Home Yes )( Time 0457 )( Date 10/21/21 Discharge/Care PlanCounseled Regarding Diagnosis, Need for follow-up, When to return to EDPatient Instructions ED Headache UnspecifiedReferrals PRIMARY CARE: 2-3 Days Discharge NoteI have spoken with the patient and/or caregivers. I have explained the patient'scondition, diagnoses and treatment plan based on the information available to meat this time. I have answered the patient's and/or caregiver's questions and addressed any concerns. The patient and/or caregivers have as good an understanding of the patient's diagnosis, condition and treatment plan as can beexpected at this point. The vital signs have been stable. The patient's condition is stable and appropriate for discharge from the emergency department. The patient will pursue further outpatient evaluation with the primary care physician or other designated or consulting physician as outlined in the discharge instructions. The patient and/or caregivers are agreeable to this planof care and follow-up instructions have been explained in detail. The patient and/or caregivers have received these instructions in written format and have expressed an understanding of the discharge instructions. The patient and/or caregivers are aware that any significant change in condition or worsening of symptoms should prompt an immediate return to this or the closest emergency department or a call to 911. at 0541RPT #:[id number] OF REPORTEDEmergency department [id number]:57:00V.[id number] ilable for patient etovENHLKPNKGOEEDP1965-07-57T15:42:06 [facility] 2021-09-28 11:40:00 [id number]+[id number] [id number]:40:00 [facility] ([facility])EMERGENCY PROVIDER REPORTREPORT#:[id number] REPORT STATUS: SignedDATE:09/28/21 TIME: 1140 PATIENT: ERWIN GAYLE UNIT #: [id number]#: [id number] ROOM/BED:AGE: 26 SEX: F PCP PHYS: No Primary or Family PhysicianSERVICE AUTHOR: Gaby Marie LICENSED NUCLEAR OPERATOR * ALL edits or amendments must be made on the electronic/computer document * Gaby Marie 09/28/21 1140:HPI-URI/Cough/Cold GeneralConfirmed Patient YesPatient Type New patientInitial Greet Date/Time 09/28/21 1137PCPno pcp PresentationChief Complaint Sore throat, Upper resp infectionHx Obtained From PatientOnset Occurred Days ago (3)Symptom Duration Since onsetProgression since Onset Waxes and wanesContext of Onset Exposure, infectiousLocation Diffuse myalgiaQuality AchingRadiation Does not radiateSeverity: Onset MildSeverity: Current MildAssociated withDenies: Abdominal pain, Anorexia, Arthralgia, Body aches, Chest pain, Chills, Cough, Diarrhea, Ear pain/ache, Fever, Headache, Myalgia, Nausea, Neck pain, Rash, Rhinorrhea, Shortness of breath, Sore throat, Sputum production, Vomiting. Associated Other Pt denies other symptomsExacerbated by NothingRelieved by Nothing ContextImmunization Status General All up to dateRecent Healthcare No recent doctor visit, No recent hospitalizationSimilar Sx Previous YesPregnancy/Sexual Hx Last Menstrual Period 09/25/21 Free Text HPI NotesFree Text HPI Notes26 year old female who comes in to the ER with a complaint of nasal congestion and sore throat. Patient denies injury or trauma. Patient states that signficant other has similar symptoms. Patient states that symptoms started three days ago. Patient denies fever, chills, headache, dizziness, weakness, wheezing, chest pain, sob, abdominal pain, n/v/d, urinary symptoms, or rash. Patient amatory to exam room in no active distress. Review of Systems Focused Review of SystemsConstitutionalDenies: Chills, Fever, Lethargy. EyesDenies: Eye pain bilat, Redness bilat, Visual loss bilat. Ears/Nose/ThroatReports: Sore throat. Denies: Ear drainage R, Ear drainage L, Ear drainage bilat, Ear ringing R, Ear ringing L, Ear ringing bilat, Earache R, Earache L, Earache bilat, Hearing loss R, Hearing loss L, Hearing loss bilat, Mouth pain, Nasal congestion, Nose bleeding, Sinus problem, Throat pain, Throat swelling, Tongue pain, Tongue swelling, Toothache, Voice change. RespiratoryDenies: Cough, non-productive, Cough, productive, Shortness of breath. GIDenies: Abdominal pain, Diarrhea, Nausea, Vomiting. SkinDenies: Diaphoresis, Rash. Allergy/ImmunDenies: Hives, Itching. NeurologicDenies: Change LOC, Dizziness, Focal weakness, Headache, Numbness, Slurred speech. Past Medical History - AdultStated Complaint COUGHAllergiesCoded Allergies:No Known Allergies (09/18/21) Home MedicationsActive ScriptsguaiFENesin/DEXTROMETHORPHAN (guaiFENesin-DM (SF) 100-10 MG/5ML) 10 ML PO Q6H PRN PRN COUGH guaiFENesin/DEXTROMETHORPHAN (guaiFENesin-DM (SF) 100-10 MG/5ML) 10 ML PO Q6H PRN PRN COUGH #150 ML Prov: 09/18/21ETHINYL EST/DROSPIRENONE (LILIBETH) 1 TAB PO DAILY ONDANSETRON ODT (ZOFRAN ODT) 4 MG PO Q6H PRN PRN NAUSEA/VOMITING ONDANSETRON ODT (ZOFRAN ODT) 4 MG PO Q6H PRN PRN NAUSEA/VOMITING #15 TABS Prov: 02/18/21CYCLOBENZAPRINE (FLEXERIL) 10 MG PO Q8H PRN PRN MUSCLE SPASMS/PAIN CYCLOBENZAPRINE (FLEXERIL) 10 MG PO Q8H PRN PRN MUSCLE SPASMS/PAIN #15 TABS Prov: 07/07/21 Review of Nursing Notes Rev avail, and agree, Triage notes reviewedAdditional Medical HistoryWilms tumor at age 5, resolvedAdditional Surgical HistoryLeft kidney removal at age 5 due to Wilms tumorAdditional Family HistorySister with endometriosisAlcohol Use Alcohol use (SOCIAL)Drug Use MarijuanaAdditional Social HistoryHas reduce smoking habit from 10 black in miles daily to 1 cigar daily this past year. Physical Exam Vital SignsVital SignsFirst Documented: Result Date Time Pulse Ox 99 09/28 1146 B/P 110/84 09/28 1146 B/P Mean 92 09/28 1146 O2 Delivery Room air 09/28 1146 Temp 37.1 09/28 1146 Pulse 99 09/28 1146 Resp 16 09/28 1146 Last Documented: Result Date Time Pulse Ox 99 09/28 1146 B/P 110/84 09/28 1146 B/P Mean 92 09/28 1146 O2 Delivery Room air 09/28 1146 Temp 37.1 09/28 1146 Pulse 99 09/28 1146 Resp 16 09/28 1146 Review of Vital Signs Reviewed Focused PEGeneral/Const General/Const Awake, Alert, Well appearing, Not toxic appearingEyes Eyes PERRLEars/Nose/Throat Ears/Nose/Throat Airway patent, Mucous membranes moist, Pharynx NL, Tympanic membs NL, Ext aud canal NL, Nose exam NL, No sinus tendernessMS Neck Neck Supple, No meningismus, Full range of motion, No adenopathy, No swelling, Non-tenderResp/Chest Respiratory/Chest Breath sounds NL, Breath sounds = bilat, No respiratory distress, No rales, No rhonchi, No wheezing, No retractions, No stridorCardiovascular Cardiovascular Heart rate NL, Regular rhythm, Heart sounds NL, Peripheral circulation NLAbdomen/GI Abdomen/GI Soft, Non-tender, No guarding, No reboundSkin Skin Color NL, No rash, Warm, Dry, Turgor NLNeurologic Neurologic Oriented X3, Speech NL, No motor deficits, No sensory deficits Interpretation Diagnostics Lab Results InterpretationResultsLaboratory Tests: 09/28 1151 Serology SARS-CoV-2 Ag (Rapid) (NEGATIVE) NEGATIVE Microbiology: Date/Time Procedure - Status Source Growth 09/28 1151 Group A Streptococcus Screen (ANTWON) - COMP THROAT 09/28 1151 Influenza Virus Type B Antigen - COMP NASAL 09/28 1151 Influenza Virus Type A Antigen - COMP NASAL Point of Care TestingMicro Interpretation Influenza rapid - neg, Strep rapid - neg, COVID negative Pulse Oximetry Pulse Ox % 99 On: Room air Interpretation Interpreted by az Time 1146 Re-Evaluation MDM Free Text MDM NotesFree Text MDM NotesPatient was educated on diagnosis, lab analysis, diet modfications, prescriptions, supportive treatment at home, s/s of when to return to ER, and pcp follow up. Patient instructed to return to ER with new or worsening symptoms. Patient was provided with a copy of lab and imaging results given to take to follow-up appointment. Patient verbalized understanding. Patient was provided with community resources where he can follow up within the next 24 to 48 hours for further evaluation.Patient verbalized understanding. Additional TextI reevaluated patient prior to discharge, patient no active distress. Re-Evaluation/ProgressRe-Evaluation/Progress Time of Re-Eval 1310 Re-Eval Status Improved Eval Following Treatment Pt. feels better, Condition improved Pain Re-Evaluation Denies pain Exam Post Tx - General Active, Alert, Appears well Exam Post Tx - Sys Review Mental status baseline Plan Post Re-Eval Plan admit URI/Flu Adult MDM NoteThe patient is now resting comfortably, is alert and in no distress. The patienthas a normal mental status and is neurologically intact. The patient appears well and is able to tolerate food or fluid by mouth, and there is no significantdehydration. There is no respiratory distress and no signs of systemic toxicity.The history, exam, diagnostic testing (if any) and current condition do not demonstrate an infectious process such as meningitis, severe pneumonia, retropharyngeal abscess, epiglottitis, sepsis or other serious bacterial infection requiring further testing, treatment, consultation, or admission at this time. The vital signs have been stable. The patient's condition is stable and appropriate for discharge. The patient will pursue further outpatient evaluation with the primary care physician or other designated or consulting physician as indicated in the discharge instructions. Patient Discharge Departure Vital Signs/ConditionVital SignsFirst Documented: Result Date Time Pulse Ox 99 09/28 1146 B/P 110/84 09/28 1146 B/P Mean 92 09/28 1146 O2 Delivery Room air 09/28 1146 Temp 37.1 09/28 1146 Pulse 99 / 1146 Resp 16 09/28 1146 Last Documented: Result Date Time Pulse Ox 99 09/28 1146 B/P 110/84 09/28 1146 B/P Mean 92 09/28 1146 O2 Delivery Room air 09/28 1146 Temp 37.1 09/28 1146 Pulse 99 09/28 1146 Resp 16 09/28 1146 All vital signs available at the time of this entry have been reviewed. Condition Stable Clinical ImpressionClinical ImpressionPrimary Impression: URI (upper respiratory infection) Disposition DecisionDischarge )( Discharged to Home Yes )( Time 1311 )( Date 09/28/21 COVID-19 Discharge PlanCDC Criteria Met for Testing YesTest Performed Yes, result negative Discharge/Care PlanCounseled Regarding Diagnosis, Lab results, Prescriptions, Need for follow-up, When to return to EDPrescriptions Reviewed Risks, Benefits, Alternative treatmentPatient Instructions ED URI, Viral, No Abx (Adult)Referrals PRIMARY CARE Departure FormsWORK/SCHOOL EXCUSE VARIABLE Discharge NoteI have spoken with the patient and/or caregivers. I have explained the patient'scondition, diagnoses and treatment plan based on the information available to meat this time. I have answered the patient's and/or caregiver's questions and addressed any concerns. The patient and/or caregivers have as good an understanding of the patient's diagnosis, condition and treatment plan as can beexpected at this point. The vital signs have been stable. The patient's condition is stable and appropriate for discharge from the emergency department. The patient will pursue further outpatient evaluation with the primary care physician or other designated or consulting physician as outlined in the discharge instructions. The patient and/or caregivers are agreeable to this planof care and follow-up instructions have been explained in detail. The patient and/or caregivers have received these instructions in written format and have expressed an understanding of the discharge instructions. The patient and/or caregivers are aware that any significant change in condition or worsening of symptoms should prompt an immediate return to this or the closest emergency department or a call to 911. Quality MeasuresBP F/U for HTN Referred for BP f/u < 4wk, F/u with PCP/other docCurrent Medications Attest: Medication reviewSmoking Cessation Screened, non userTobacco Screening/Cessation 18 years or older, Denies tobacco use Segun Najera 09/28/21 1443:Patient Discharge Departure Supervising Physician Note MidLv Saw Pt AloneI have reviewed the PA/LICENSED NUCLEAR OPERATOR's note and plan of care. I was available for consultation as needed at all times during the patient's visit in the emergency department. I agree with the clinical impression, plan and disposition. at 1402 at 1443RPT #:[id number] OF REPORTEDEmergency department [id number]:40:00V.[id number] ilable for patient aspgEKGVMMPLMIAAAQ0241-44-09Y48:02:29 [facility] 2021-09-18 09:07:00 [id number] [id number]:07:00 [facility] ([facility])EMERGENCY PROVIDER REPORTREPORT#:[id number] REPORT STATUS: SignedDATE:09/18/21 TIME: 906 PATIENT: ERWIN GAYLE UNIT #: [id number]#: [id number] ROOM/BED:AGE: 26 SEX: F PCP PHYS: No Primary or Family PhysicianSERVICE AUTHOR: Deshawn Bay MD * ALL edits or amendments must be made on the electronic/computer document * HPI-URI/Cough/Cold GeneralInitial Greet Date/Time 09/18/21 0901 PresentationChief Complaint Cough, non-productive, diarrheaOnset Occurred Days ago (2)Severity: Onset ModerateSeverity: Current Moderate Free Text HPI NotesFree Text HPI Vcwbu89-pcue-yrd female with no past medical history complains of cough, body aches, nonbloody diarrhea x3 starting 2 days ago. Also states she has an itchy throat. Denies fever, rhinorrhea, chest pain, shortness of breath. Denies abdominal pain, nausea, vomiting. Denies dysuria. Exposed to her girlfriend who tested positive for Covid. Patient is vaccinated for Covid. Review of Systems ROS StatementsAll systems rev neg except as marked. Focused Review of SystemsConstitutionalDenies: Fever. Ears/Nose/ThroatReports: Nasal congestion, Sore throat. RespiratoryReports: Cough, non-productive. Denies: Shortness of breath. GIReports: Diarrhea. Past Medical History - AdultStated Complaint COVID TEST, DIARRHEA, CHILLS, BODY ACHESAllergiesCoded Allergies:No Known Allergies (09/18/21) Home MedicationsActive ScriptsETHINYL EST/DROSPIRENONE (LILIBETH) 1 TAB PO DAILY ONDANSETRON ODT (ZOFRAN ODT) 4 MG PO Q6H PRN PRN NAUSEA/VOMITING ONDANSETRON ODT (ZOFRAN ODT) 4 MG PO Q6H PRN PRN NAUSEA/VOMITING #15 TABS Prov: 02/18/21CYCLOBENZAPRINE (FLEXERIL) 10 MG PO Q8H PRN PRN MUSCLE SPASMS/PAIN CYCLOBENZAPRINE (FLEXERIL) 10 MG PO Q8H PRN PRN MUSCLE SPASMS/PAIN #15 TABS Prov: 07/07/21 Additional Medical HistoryWilms tumor at age 5, resolvedAdditional Surgical HistoryLeft kidney removal at age 5 due to Wilms tumorAdditional Family HistorySister with endometriosisAlcohol Use Alcohol use (SOCIAL)Drug Use MarijuanaSmoking status: Smoking status for patients 13 years old or older: Current every day smokerAdditional Social HistoryHas reduce smoking habit from 10 black in miles daily to 1 cigar daily this past year. Physical Exam Vital SignsVital SignsFirst Documented: Result Date Time Pulse Ox 100 09/18 900 B/P 136/83 09/18 900 B/P Mean 100 09/18 900 O2 Delivery Room air 09/18 900 Temp 36.9 09/18 900 Pulse 100 09/18 900 Resp 16 09/18 900 Last Documented: Result Date Time Pulse Ox 100 09/18 942 B/P 134/85 09/18 942 B/P Mean 101 09/18 942 O2 Delivery Room air 09/18 942 Temp 36.9 09/18 942 Pulse 98 09/18 942 Resp 16 09/18 942 Review of Vital Signs Reviewed Focused PEGeneral/Const General/Const Awake, Alert, No acute distressEars/Nose/Throat Ears/Nose/Throat Airway patent, Mucous membranes moist, Pharynx NL, Tympanic membs NLMS Neck Neck Supple, No meningismus, Full range of motionResp/Chest Respiratory/Chest Breath sounds NL, Breath sounds = bilat, No respiratory distressCardiovascular Cardiovascular Heart rate NL, Regular rhythm, Heart sounds NLAbdomen/GI Abdomen/GI Soft, Non-tender, No guarding, No rebound, BS normoactiveSkin Skin Color NL, No rash, Warm, Dry, IntactNeurologic Neurologic Oriented X3, Speech NL, No motor deficits Interpretation Diagnostics Lab Results InterpretationResultsLaboratory Tests: 09/18 904 Serology SARS-CoV-2 Ag (Rapid) (NEGATIVE) NEGATIVE Lab StatementLaboratory studies reviewed and considered in the medical decision-making. Point of Care TestingPulse Oximetry Pulse Ox % 100 On: Room air Interpretation Interpreted by me, Pulse oximetry normal Time 908 Re-Evaluation MDM Re-Evaluation/ProgressRe-Evaluation/Progress Text/Dict NotePatient is resting comfortably and in no acute distress. She appears nontoxic. Abdomen is soft and nontender. She was given return precautions and voiced understanding. Time of Re-Eval 936 Re-Eval Status Improved Patient Discharge Departure Vital Signs/ConditionVital SignsFirst Documented: Result Date Time Pulse Ox 100 09/18 900 B/P 136/83 09/18 900 B/P Mean 100 09/18 900 O2 Delivery Room air 09/18 900 Temp 36.9 09/18 900 Pulse 100 09/18 900 Resp 16 09/18 900 Last Documented: Result Date Time Pulse Ox 100 09/18 942 B/P 134/85 09/18 942 B/P Mean 101 09/18 942 O2 Delivery Room air 09/18 942 Temp 36.9 09/18 942 Pulse 98 09/18 942 Resp 16 09/18 942 All vital signs available at the time of this entry have been reviewed. Condition Stable Clinical ImpressionClinical ImpressionPrimary Impression: DiarrheaSecondary Impressions: Cough, Viral illnessTime of Impression 937 Disposition DecisionDischarge )( Discharged to Home Yes )( Time 937 )( Date 09/18/21 Discharge/Care PlanCounseled Regarding Diagnosis, Lab results, Need for transfer, Need for follow-up(Auto) PrescriptionsCurrent Visit ScriptsguaiFENesin/DEXTROMETHORPHAN (guaiFENesin-DM (SF) 100-10 MG/5ML) 10 ML PO Q6H PRN PRN COUGH guaiFENesin/DEXTROMETHORPHAN (guaiFENesin-DM (SF) 100-10 MG/5ML) 10 ML PO Q6H PRN PRN COUGH #150 ML Patient Instructions ED Diarrhea, Viral (Adult), Understanding the Cold VirusReferrals PRIMARY CARE: 1 Week Quality MeasuresBP F/U for HTN BP in normal rangeSmoking Cessation Screened, non user at 1445RPT #:[id number] OF REPORTEDEmergency department [id number]:07:00V.[id number] ilable for patient [id number]:45:53 [facility] 2021-07-07 04:58:00 [id number]:58:00 [facility] ([facility])EMERGENCY PROVIDER REPORTREPORT#:[id number] REPORT STATUS: SignedDATE:07/07/21 TIME: 0458 PATIENT: ERWIN GAYLE UNIT #: [id number]#: [id number] ROOM/BED:AGE: 25 SEX: F PCP PHYS: No Primary or Family PhysicianSERVICE AUTHOR: Segun Najera MD * ALL edits or amendments must be made on the electronic/computer document * HPI-Should/Arm Prob/Inj Free Text HPI NotesFree Text HPI [id number]-cahp-jsh female with history of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 up with OB. Given low cost resources and pt understands increased clotting risk with OCPs. Time of Re-Eval 1144)( Re-Eval Status ResolvedRe-Eval Abdomen Soft, Non-tender, No guarding, No rebound, BS normoactiveEval Following Treatment Pt. feels better Abd Pain MDM Note F < 40The patient is resting comfortably and feels better, is alert and in no distress. The repeat examination is unremarkable and benign; in particular, there is no discomfort at McBurney's point. The history, exam, diagnostic testing, and current condition do not suggest acute appendicitis, bowel obstruction, tubovarian abscess, ectopic , ovarian torsion, acute cholecystitis, bowel perforation, major gastrointestinal bleeding, severe diverticulitis, sepsis, or other significant pathology to warrant further testing, continued ED treatment, admission, or surgical evaluation at this point. The vital signs have been stable. The patient does not have uncontrollable pain, intractable vomiting, or other significant symptoms. The patient's condition is stable and appropriate for discharge. The patient will pursue further outpatient evaluation with the primary care physician or other designated or consulting physician as indicated in the discharge instructions. ED CourseMedication(s) OrderedMedication(s) Ordered:Anti-Infective Agents Sig/Paula Start time Last Medication Dose Route Stop Time Status Admin Metronidazole HCl 500 MG X1ED STA 02/18 1048 DC 02/18 PO 02/18 1049 1121 Ceftriaxone Sodium 1,000 MG X1ED STA 02/18 1047 DC 02/18 Sodium Chloride 10 ML IV 02/18 1049 1121 Central Nervous System Agents Sig/Paula Start time Last Medication Dose Route Stop Time Status Admin Ketorolac 30 MG X1ED STA 02/18 0847 DC 02/18 Tromethamine IV 02/18 0848 0850 Diagnostic Agents Sig/Paula Start time Last Medication Dose Route Stop Time Status Admin Iopamidol 0 .STK-MED ONE 02/18 0944 DC 02/18 .ROUTE 0952 Iopamidol 0 .STK-MED ONE 02/18 0944 DC 02/18 .ROUTE 0953 Electrolytic, Caloric, And Norma Sig/Paula Start time Last Medication Dose Route Stop Time Status Admin Sodium Chloride 1,000 ML X1ED STA 02/18 0844 DC 02/18 IV 02/18 0943 0851 Sodium Chloride 1,000 ML X1ED STA 02/18 0844 CAN IV 02/18 0943 Gastrointestinal Drugs Sig/Paula Start time Last Medication Dose Route Stop Time Status Admin Ondansetron HCl 4 MG X1ED STA 02/18 0844 DC 02/18 IV 02/18 0845 0851 Patient Discharge Departure Vital Signs/ConditionVital SignsFirst Documented: Result Date Time Pulse Ox 97 02/18 0837 B/P 123/84 02/18 0837 B/P Mean 97 02/18 0837 Temp 36.7 02/18 0837 Pulse 76 02/18 0837 Resp 18 02/18 0837 Last Documented: Result Date Time Pulse Ox 100 02/18 1130 B/P 137/78 02/18 1130 B/P Mean 97 02/18 1130 Pulse 60 02/18 1130 Resp 18 02/18 1130 Temp 36.7 02/18 0837 All vital signs available at the time of this entry have been reviewed. Condition Stable, Improved Clinical ImpressionClinical ImpressionPrimary Impression: Fibroid uterusSecondary Impressions: Abdominal pain Disposition DecisionDischarge )( Discharged to Home Yes )( Time 1144 )( Date 02/18/21 Discharge/Care PlanCounseled Regarding Diagnosis, Lab results, Imaging studies, Prescriptions, Needfor follow-up, When to return to ED(Auto) PrescriptionsCurrent Visit ScriptsETHINYL EST/DROSPIRENONE (LILIBETH) 1 TAB PO DAILY ONDANSETRON ODT (ZOFRAN ODT) 4 MG PO Q6H PRN PRN NAUSEA/VOMITING ONDANSETRON ODT (ZOFRAN ODT) 4 MG PO Q6H PRN PRN NAUSEA/VOMITING #15 TABS Patient Instructions [facility] FibroidsRefCo[facility] Departure FormsFREE OR LOW COST CLINICSPCP LISTWORK/SCHOOL EXCUSE VARIABLE Any Restrictions Off work/school 2 days Discharge NoteI have spoken with the patient and/or caregivers. I have explained the patient'scondition, diagnoses and treatment plan based on the information available to meat this time. I have answered the patient's and/or caregiver's questions and addressed any concerns. The patient and/or caregivers have as good an understanding of the patient's diagnosis, condition and treatment plan as can beexpected at this point. The vital signs have been stable. The patient's condition is stable and appropriate for discharge from the emergency department. The patient will pursue further outpatient evaluation with the primary care physician or other designated or consulting physician as outlined in the discharge instructions. The patient and/or caregivers are agreeable to this planof care and follow-up instructions have been explained in detail. The patient and/or caregivers have received these instructions in written format and have expressed an understanding of the discharge instructions. The patient and/or caregivers are aware that any significant change in condition or worsening of symptoms should prompt an immediate return to this or the closest emergency department or a call to 911. Free Text Depart NotesFree Text Depart NotesPt improved and stable for d/c home with outpatient follow up. Warning signs/RTED instructions reviewed and all questions answered. at 1244RPT #:[id number] OF REPORTEDEmergen department [id number]:42:00V.[id number] ilable for patient [id number]:45:00 [facility] 2020-05-20 11:26:00 [id number]:2 6:00 [facility] ([facility])EMERGENCY PROVIDER REPORTREPORT#:[id number] REPORT STATUS: SignedDATE:05/20/20 TIME: 1125 PATIENT: ERWIN GAYLE UNIT #: [id number]#: [id number] ROOM/BED:AGE: 24 SEX: F PCP PHYS: No Primary or Family PhysicianSERVICE AUTHOR: José Arriola * ALL edits or amendments must be made on the electronic/computer document * HPI-Abd Pain F Under 40 GeneralConfirmed Patient YesInitial Greet Date/Time 05/20/20 1106PCPFROM [facility]ITY [facility] (DR CARNEY). HAS NOT ESTABLISHED HERE. PresentationChief Complaint Abdominal pain, Vaginal bleedingHx Obtained From Patient, OLD CHARTSudden in Onset? 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 Ultrasound showed a uterine fibroid with abdominal/pelvic CT unremarkable other than a fatty liver and a solitary right kidney which is without cancer or nephrosis. Patient was prescribed a 7-day course of Provera and Pepcid with a follow-up [facility] for fibroid and vaginal bleeding and some PCP contact information for other concerns. Patient did not follow-up. Patient returning to facility due to continuation of symptoms. Right lower quadrant "cramping "type pain intermittently remains which occasionally wakes her at night. Reports saturating vaginal bleeding constant with waxing and waning of quantity. Saturated 3 regular tampons today without clots. Discussedlast visits testing with risks and benefits. Patient opting for labs and ultrasound presently and will hold CT status post findings and other test results. Risk-Abd Pain F Under 40)( Ectopic Risk factors reviewed Review of Systems ROS StatementsAll systems rev neg except as marked. Focused Review of SystemsConstitutionalDenies: Chills, Fever, Lethargy. RespiratoryDenies: Cough, non-productive, Cough, productive, Shortness of breath. CardiovascularDenies: Chest pain, Syncope. GIReports: Abdominal pain (RLQ). FemaleReports: Vaginal bleeding - abnl. MusculoskeletalDenies: Back pain, Extremity pain. Past Medical History - AdultStated Complaint RLQ PAIN, STS PERIOD X4 MONTHSAllergiesCoded Allergies:No Known Allergies (04/21/20) Home MedicationsReported MedicationsNo Known Home Medications Review of Nursing Notes Triage notes reviewedAdditional Medical HistoryWilms tumor at age 5, resolvedAdditional Surgical HistoryLeft kidney removal at age 5 due to Wilms tumorAdditional Family HistorySister with endometriosisAlcohol Use Alcohol use (SOCIAL)Drug Use MarijuanaSmoking status for patients 13 years old or older: Current every day smokerPack years (pk/d)*(yrs): 1 (1 BLACK MILD DAILY)Date last smoked: still smokingAdditional Social HistoryHas reduce smoking habit from 10 black in miles daily to 1 cigar daily this pastyear.State Controlled Subst DB Report Reviewed Yes Text/Dict NoteNARX SCORESNarcotic: 030Sedative:010Stimulant: 000OVERDOSE RISK SCORE: 110 No narcotics rx'd since 12/31/18 by PCP: Dr Bucio-minimal risk Physical Exam Vital SignsVital SignsFirst Documented: Result Date Time Pulse Ox 98 05/20 1107 B/P 105/75 05/20 1107 B/P Mean 85 05/20 1107 O2 Delivery Room air 05/20 1107 Temp 98.2 05/20 1107 Pulse 90 05/20 1107 Resp 16 05/20 1107 Last Documented: Result Date Time Pulse Ox 98 05/20 1107 B/P 105/75 05/20 1107 B/P Mean 85 05/20 1107 O2 Delivery Room air 05/20 1107 Temp 98.2 05/20 1107 Pulse 90 05/20 1107 Resp 16 05/20 1107 Review of Vital Signs Reviewed Focused PEGeneral/Const General/Const Awake, Alert, Well appearingMS Head Head NormocephalicEyes Eyes PERRLEars/Nose/Throat Ears/Nose/Throat Airway patent, Mucous membranes moist, Pharynx NLResp/Chest Respiratory/Chest Breath sounds NL, Breath sounds = bilat, No respiratory distress, No rales, No rhonchi, No wheezingCardiovascular Cardiovascular Heart rate NL, Regular rhythm, Heart sounds NL, Peripheral circulation NLAbdomen/GI Abdomen/GI Soft, Non-tender, McBurney's non-tender, No guarding, No rebound, BS normoactive, No distention, No hernia, No palpable massMS Back Back Inspection NL, Non-tender, No CVA tendernessSkin Skin Color NL, Warm, Dry, Turgor NLGenitourinary General Exam deferredRectum Rectum/Perineum Exam deferredNeurologic Neurologic Oriented X3, Speech NL, No motor deficits, No sensory deficits Interpretation Diagnostics Lab Results InterpretationResultsLaboratory Tests 05/20/20 1131:[Embedded Image Not Available]Laboratory Tests: 05/20 1131 Chemistry Sodium (135 - 148 mmol/L) 139 Potassium (3.5 - 5.1 mmol/L) 3.7 Chloride (101 - 109 mmol/L) 105 Carbon Dioxide (21 - 32 mmol/L) 24.5 Anion Gap (10 - 20 mmol/L) 13 BUN (3 - 21 mg/dL) 13 Creatinine (0.55 - 1.3 mg/dL) 0.80 Glomerular Filtr Rate (>=60 mL/min) > 60 BUN/Creatinine Ratio (10 - 20) 16.3 Glucose (74 - 106 mg/dL) 104 Calcium (8.4 - 10.2 mg/dL) 8.9 Total Bilirubin (0.0 - 1.0 mg/dL) 0.30 Direct Bilirubin (0.0 - 0.30 mg/dL) 0.10 AST (6 - 32 U/L) 14 ALT (12 - 78 U/L) 23 Total Alk Phosphatase (38 - 126 U/L) 65 Total Protein (6.5 - 8.4 g/dL) 8.0 Albumin (3.4 - 4.8 g/dL) 3.1 L Globulin (1 - 10 G/DL) 4.9 Albumin/Globulin Ratio (0.75 - 1.50 RATIO) 0.6 L Lipase (128 - 270 U/L) 134 Serum , Qual (NEGATIVE) NEGATIVE Hematology WBC (4.5 - 12.5 K/mm3) 8.3 RBC (3.7 - 5.2 mill/mm3) 4.91 Hgb (11.5 - 15.5 gram/dL) 11.1 L Hct (36.0 - 46.0 %) 36.0 MCV (80 - 98 fL) 73.3 L MCH (27.0 - 33.0 picogram) 22.6 L MCHC (33.0 - 36.0 gram/dL) 30.8 L RDW (11.6 - 16.2 %) 14.5 RDW Std Deviation (37.0 - 51.0 fL) 38.8 Plt Count (150 - 450 K/mm3) 419 MPV (6.7 - 11.0 fL) 9.7 Urines Urine Color (YELLOW) YELLOW Urine Appearance (CLEAR) HAZY H Urine pH (5.0 - 8.0) 6.0 Ur Specific [place] (1.001 - 1.035) 1.025 Urine Protein (Neg - 15 mg/dL) 30 (1+) H Urine Glucose (UA) (NEGATIVE mg/dL) norm Urine Ketones (NEGATIVE mg/dL) 5 (Trace) H Urine Blood (NEGATIVE Warren/uL) 150 (3+) H Urine Nitrite (NEGATIVE) NEGATIVE Urine Bilirubin (NEGATIVE mg/dL) NEGATIVE Urine Urobilinogen (0.0 - 0.2 mg/dL) 1 H Ur Leukocyte Esterase (NEGATIVE uL) 25 Philipp/uL (Trace) H Urine RBC (0 - 5 per HPF) 0-3 Urine WBC (0 - 5 per HPF) 0-5 Ur Epithelial Cells (Few per HPF) Moderate (5-10/hpf) Urine Bacteria (NONE per HPF) MANY Recent Impressions:ULTRASOUND - DUP AB/PEL/SC COMP 05/20 1210 Report Impression - Status: SIGNED Entered: 05/20/2020 1248 IMPRESSION: Multi fibroid uterus. Otherwise unremarkable pelvic ultrasound. Location: HCAImpression By: Jhon Roque M.D.ULTRASOUND - US PELVIS COMPLETE 05/20 1210 Report Impression - Status: SIGNED Entered: 05/20/2020 1248 IMPRESSION: Multi fibroid uterus. Otherwise unremarkable pelvic ultrasound. Location: HCAImpression By: Jhon Roque M.D.ULTRASOUND - US TRANSVAGINAL NON OB 05/20 1210 Report Impression - Status: SIGNED Entered: 05/20/2020 1248 IMPRESSION: Multi fibroid uterus. Otherwise unremarkable pelvic ultrasound. Location: HCAImpression By: Jhon Roque M.D. 04/21/20 US: Uterine fibroid measuring 4.8 x 3.9 cm in diameter Lab Imaging StatementLaboratory radiographic studies reviewed and considered in the medical decision-making. Point of Care TestingUrinalysis Interpretation Positive blood, Positive ketones, Clean Catch Specimen(contaminated) w/ 1+ protein 3+ blood (pt presents w/ vaginal bleeding) and few leukocytes many bacteria w/ mod amt epithelieal cells. Pulse Oximetry Pulse Ox % 98 On: Room air Interpretation Interpreted by me, Pulse oximetry normal Lab StudiesCBC Interpretation Hemoglobin 11.1 gm/dl (11.2 gm/dl on 04/21/20). No significantchange from previous Re-Evaluation MDM Free Text MDM NotesFree Text MDM NotesDiscussed test results with diagnosis and treatment plan. Prescribed tramadol for pain after narcotic website checked. Follow-up with gynecology and/or PCP, resources given. ED precautions given-patient voiced understanding and agrees with plan. )( Re-Evaluation/Progress #1)( Re-Eval Status Improved Abd Pain MDM Note F < 40The patient is resting comfortably and feels better, is alert and in no distress. The repeat examination is unremarkable and benign; in particular, there is no discomfort at McBurney's point. The history, exam, diagnostic testing, and current condition do not suggest acute appendicitis, bowel obstruction, tubovarian abscess, ectopic , ovarian torsion, acute cholecystitis, bowel perforation, major gastrointestinal bleeding, severe diverticulitis, sepsis, or other significant pathology to warrant further testing, continued ED treatment, admission, or surgical evaluation at this point. The vital signs have been stable. The patient does not have uncontrollable pain, intractable vomiting, or other significant symptoms. The patient's condition is stable and appropriate for discharge. The patient will pursue further outpatient evaluation with the primary care physician or other designated or consulting physician as indicated in the discharge instructions. Tissue Perfusion ReassessmentPatient tissue perfusion reassessment completed. ED CourseMedication(s) OrderedMedication(s) Ordered:Central Nervous System Agents Sig/Paula Start time Last Medication Dose Route Stop Time Status Admin Ketorolac 30 MG X1ED STA 05/20 1124 DC 05/20 Tromethamine IV 05/20 1125 1127 Electrolytic, Caloric, And Norma Sig/Paula Start time Last Medication Dose Route Stop Time Status Admin Sodium Chloride 1,000 ML X1ED STA 05/20 1124 DC 05/20 IV 05/20 1223 1126 Patient Discharge Departure Vital Signs/ConditionVital SignsFirst Documented: Result Date Time Pulse Ox 98 05/20 1107 B/P 105/75 05/20 1107 B/P Mean 85 05/20 1107 O2 Delivery Room air 05/20 110 Temp 98.2 05/20 110 Pulse 90 05/20 1107 Resp 16 05/20 1107 Last Documented: Result Date Time Pulse Ox 98 05/20 110 B/P 105/75 05/20 1107 B/P Mean 85 05/20 1107 O2 Delivery Room air 05/20 1107 Temp 98.2 05/20 110 Pulse 90 05/20 110 Resp 16 05/20 1107 All vital signs available at the time of this entry have been reviewed. Condition Stable Clinical ImpressionClinical ImpressionPrimary Impression: Abdominal painSecondary Impressions: Dysmenorrhea, Uterine fibroid Disposition DecisionDischarge )( Discharged to Home Yes )( Time 1258 )( Date 05/20/20 Discharge/Care Plan(Auto) PrescriptionsCurrent Visit ScriptsNo Known Home Medications ReferralsNo Primary or Family Physician (PCP/Family) Discharge NoteI have spoken with the patient and/or caregivers. I have explained the patient'scondition, diagnoses and treatment plan based on the information available to meat this time. I have answered the patient's and/or caregiver's questions and addressed any concerns. The patient and/or caregivers have as good an understanding of the patient's diagnosis, condition and treatment plan as can beexpected at this point. The vital signs have been stable. The patient's condition is stable and appropriate for discharge from the emergency department. The patient will pursue further outpatient evaluation with the primary care physician or other designated or consulting physician as outlined in the discharge instructions. The patient and/or caregivers are agreeable to this planof care and follow-up instructions have been explained in detail. The patient and/or caregivers have received these instructions in written format and have expressed an understanding of the discharge instructions. The patient and/or caregivers are aware that any significant change in condition or worsening of symptoms should prompt an immediate return to this or the closest emergency department or a call to 911. Quality MeasuresBP F/U for HTN F/u with PCP/other doc, BP in normal rangeSmoking Cessation Screened, non userTobacco Screening/Cessation Tobacco user Smoking Cessation CounselingThe patient was questioned regarding their smoking habits, and I have determined, as the patient's treating physician, that there is a medical necessity in regards to the patient's medical condition to provide smoking cessation program education. The patient was advised to stop smoking and counseled for a period ofgreater than 3 minutes. The patient was instructed to follow up with a primary care physician for smoking cessation and given information regarding local smoking cessation programs in the area. The patient received detailed discharge instructions as to how to stop smoking. The patient expressed an understanding of the need to follow up and the plan for smoking cessation. at 1344RPT #:[id number] OF REPORTEDEmergency department [id number]:26:00V.[id number] ilable for patient [id number]:44:32 [facility] 2020-05-20 11:26:00 [id number] [id number]:2 6:00 [facility] ([facility] PROVID[facility] REPORTREPORT#:[id number] REPORT STATUS: SignedDATE:05/20/20 TIME: 1126 PATIENT: ERWIN GAYLE UNIT #: [id number]#: [id number] ROOM/BED:AGE: 24 SEX: F PCP PHYS: No Primary or Family PhysicianSERVICE AUTHOR: José Arriola * ALL edits or amendments must be made on the electronic/computer document * See AddendumHPI-Abd Pain F Under 40 GeneralConfirmed Patient YesInitial Greet Date/Time 05/20/20 1106PCPFROM [facility] (DR CARNEY). HAS NOT ESTABLISHED HERE. PresentationChief Complaint Abdominal pain, Vaginal bleedingHx Obtained From Patient, OLD CHARTSudden in Onset? 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 Ultrasound showed a uterine fibroid with abdominal/pelvic CT unremarkable other than a fatty liver and a solitary right kidney which is without cancer or nephrosis. Patient was prescribed a 7-day course of Provera and Pepcid with a follow-up [facility] for fibroid and vaginal bleeding and some PCP contact information for other concerns. Patient did not follow-up. Patient returning to facility due to continuation of symptoms. Right lower quadrant "cramping "type pain intermittently remains which occasionally wakes her at night. Reports saturating vaginal bleeding constant with waxing and waning of quantity. Saturated 3 regular tampons today without clots. Discussedlast visits testing with risks and benefits. Patient opting for labs and ultrasound presently and will hold CT status post findings and other test results. Risk-Abd Pain F Under 40)( Ectopic Risk factors reviewed Review of Systems ROS StatementsAll systems rev neg except as marked. Focused Review of SystemsConstitutionalDenies: Chills, Fever, Lethargy. RespiratoryDenies: Cough, non-productive, Cough, productive, Shortness of breath. CardiovascularDenies: Chest pain, Syncope. GIReports: Abdominal pain (RLQ). FemaleReports: Vaginal bleeding - abnl. MusculoskeletalDenies: Back pain, Extremity pain. Past Medical History - AdultStated Complaint RLQ PAIN, STS PERIOD X4 MONTHSAllergiesCoded Allergies:No Known Allergies (04/21/20) Home MedicationsReported MedicationsNo Known Home Medications Review of Nursing Notes Triage notes reviewedAdditional Medical HistoryWilms tumor at age 5, resolvedAdditional Surgical HistoryLeft kidney removal at age 5 due to Wilms tumorAdditional Family HistorySister with endometriosisAlcohol Use Alcohol use (SOCIAL)Drug Use MarijuanaSmoking status for patients 13 years old or older: Current every day smokerPack years (pk/d)*(yrs): 1 (1 BLACK MILD DAILY)Date last smoked: still smokingAdditional Social HistoryHas reduce smoking habit from 10 black in miles daily to 1 cigar daily this pastyear.State Controlled Subst DB Report Reviewed Yes Text/Dict NoteNARX SCORESNarcotic: 030Sedative:010Stimulant: 000OVERDOSE RISK SCORE: 110 No narcotics rx'd since 12/31/18 by PCP: Dr Bucio-minimal risk Physical Exam Vital SignsVital SignsFirst Documented: Result Date Time Pulse Ox 98 05/20 1107 B/P 105/75 05/20 1107 B/P Mean 85 08/26 1107 O2 Delivery Room air 05/20 110 Temp 98.2 05/20 1107 Pulse 90 05/20 1107 Resp 16 05/20 110 Last Documented: Result Date Time Pulse Ox 98 05/20 110 B/P 105/75 05/20 1107 B/P Mean 85 05/20 1107 O2 Delivery Room air 05/20 110 Temp 98.2 05/20 110 Pulse 90 05/20 1107 Resp 16 05/20 1107 Review of Vital Signs Reviewed Focused PEGeneral/Const General/Const Awake, Alert, Well appearingMS Head Head NormocephalicEyes Eyes PERRLEars/Nose/Throat Ears/Nose/Throat Airway patent, Mucous membranes moist, Pharynx NLResp/Chest Respiratory/Chest Breath sounds NL, Breath sounds = bilat, No respiratory distress, No rales, No rhonchi, No wheezingCardiovascular Cardiovascular Heart rate NL, Regular rhythm, Heart sounds NL, Peripheral circulation NLAbdomen/GI Abdomen/GI Soft, Non-tender, McBurney's non-tender, No guarding, No rebound, BS normoactive, No distention, No hernia, No palpable massMS Back Back Inspection NL, Non-tender, No CVA tendernessSkin Skin Color NL, Warm, Dry, Turgor NLGenitourinary General Exam deferredRectum Rectum/Perineum Exam deferredNeurologic Neurologic Oriented X3, Speech NL, No motor deficits, No sensory deficits Interpretation Diagnostics Lab Results InterpretationResultsLaboratory Tests 05/20/20 1131:[Embedded Image Not Available]Laboratory Tests: 05/20 1131 Chemistry Sodium (135 - 148 mmol/L) 139 Potassium (3.5 - 5.1 mmol/L) 3.7 Chloride (101 - 109 mmol/L) 105 Carbon Dioxide (21 - 32 mmol/L) 24.5 Anion Gap (10 - 20 mmol/L) 13 BUN (3 - 21 mg/dL) 13 Creatinine (0.55 - 1.3 mg/dL) 0.80 Glomerular Filtr Rate (>=60 mL/min) > 60 BUN/Creatinine Ratio (10 - 20) 16.3 Glucose (74 - 106 mg/dL) 104 Calcium (8.4 - 10.2 mg/dL) 8.9 Total Bilirubin (0.0 - 1.0 mg/dL) 0.30 Direct Bilirubin (0.0 - 0.30 mg/dL) 0.10 AST (6 - 32 U/L) 14 ALT (12 - 78 U/L) 23 Total Alk Phosphatase (38 - 126 U/L) 65 Total Protein (6.5 - 8.4 g/dL) 8.0 Albumin (3.4 - 4.8 g/dL) 3.1 L Globulin (1 - 10 G/DL) 4.9 Albumin/Globulin Ratio (0.75 - 1.50 RATIO) 0.6 L Lipase (128 - 270 U/L) 134 Serum , Qual (NEGATIVE) NEGATIVE Hematology WBC (4.5 - 12.5 K/mm3) 8.3 RBC (3.7 - 5.2 mill/mm3) 4.91 Hgb (11.5 - 15.5 gram/dL) 11.1 L Hct (36.0 - 46.0 %) 36.0 MCV (80 - 98 fL) 73.3 L MCH (27.0 - 33.0 picogram) 22.6 L MCHC (33.0 - 36.0 gram/dL) 30.8 L RDW (11.6 - 16.2 %) 14.5 RDW Std Deviation (37.0 - 51.0 fL) 38.8 Plt Count (150 - 450 K/mm3) 419 MPV (6.7 - 11.0 fL) 9.7 Urines Urine Color (YELLOW) YELLOW Urine Appearance (CLEAR) HAZY H Urine pH (5.0 - 8.0) 6.0 Ur Specific [place] (1.001 - 1.035) 1.025 Urine Protein (Neg - 15 mg/dL) 30 (1+) H Urine Glucose (UA) (NEGATIVE mg/dL) norm Urine Ketones (NEGATIVE mg/dL) 5 (Trace) H Urine Blood (NEGATIVE Warren/uL) 150 (3+) H Urine Nitrite (NEGATIVE) NEGATIVE Urine Bilirubin (NEGATIVE mg/dL) NEGATIVE Urine Urobilinogen (0.0 - 0.2 mg/dL) 1 H Ur Leukocyte Esterase (NEGATIVE uL) 25 Philipp/uL (Trace) H Urine RBC (0 - 5 per HPF) 0-3 Urine WBC (0 - 5 per HPF) 0-5 Ur Epithelial Cells (Few per HPF) Moderate (5-10/hpf) Urine Bacteria (NONE per HPF) MANY Recent Impressions:ULTRASOUND - DUP AB/PEL/SC COMP 05/20 1210 Report Impression - Status: SIGNED Entered: 05/20/2020 1248 IMPRESSION: Multi fibroid uterus. Otherwise unremarkable pelvic ultrasound. Location: [facility]CAImpression By: Jhon Roque M.D.ULTRASOUND - US PELVIS COMPLETE 05/20 1210 Report Impression - Status: SIGNED Entered: 05/20/2020 1248 IMPRESSION: Multi fibroid uterus. Otherwise unremarkable pelvic ultrasound. Location: [facility]CAImpression By: Jhon Roque M.D.ULTRASOUND - US TRANSVAGINAL NON OB 05/20 1210 Report Impression - Status: SIGNED Entered: 05/20/2020 1248 IMPRESSION: Multi fibroid uterus. Otherwise unremarkable pelvic ultrasound. Location: HCAImpression By: Jhon Roque M.D. 04/21/20 US: Uterine fibroid measuring 4.8 x 3.9 cm in diameter Lab Imaging StatementLaboratory radiographic studies reviewed and considered in the medical decision-making. Point of Care TestingUrinalysis Interpretation Positive blood, Positive ketones, Clean Catch Specimen(contaminated) w/ 1+ protein 3+ blood (pt presents w/ vaginal bleeding) and few leukocytes many bacteria w/ mod amt epithelieal cells. Pulse Oximetry Pulse Ox % 98 On: Room air Interpretation Interpreted by me, Pulse oximetry normal Lab StudiesCBC Interpretation Hemoglobin 11.1 gm/dl (11.2 gm/dl on 04/21/20). No significantchange from previous Re-Evaluation MDM Free Text MDM NotesFree Text MDM NotesDiscussed test results with diagnosis and treatment plan. Prescribed tramadol for pain after narcotic website checked. Follow-up with gynecology and/or PCP, resources given. ED precautions given-patient voiced understanding and agrees with plan. )( Re-Evaluation/Progress #1)( Re-Eval Status Improved Abd Pain MDM Note F < 40The patient is resting comfortably and feels better, is alert and in no distress. The repeat examination is unremarkable and benign; in particular, there is no discomfort at McBurney's point. The history, exam, diagnostic testing, and current condition do not suggest acute appendicitis, bowel obstruction, tubovarian abscess, ectopic , ovarian torsion, acute cholecystitis, bowel perforation, major gastrointestinal bleeding, severe diverticulitis, sepsis, or other significant pathology to warrant further testing, continued ED treatment, admission, or surgical evaluation at this point. The vital signs have been stable. The patient does not have uncontrollable pain, intractable vomiting, or other significant symptoms. The patient's condition is stable and appropriate for discharge. The patient will pursue further outpatient evaluation with the primary care physician or other designated or consulting physician as indicated in the discharge instructions. Tissue Perfusion ReassessmentPatient tissue perfusion reassessment completed. ED CourseMedication(s) OrderedMedication(s) Ordered:Central Nervous System Agents Sig/Paula Start time Last Medication Dose Route Stop Time Status Admin Ketorolac 30 MG X1ED STA 05/20 1124 DC 05/20 Tromethamine IV 05/20 1125 1127 Electrolytic, Caloric, And Norma Sig/Paula Start time Last Medication Dose Route Stop Time Status Admin Sodium Chloride 1,000 ML X1ED STA 05/20 1124 DC 05/20 IV 05/20 1223 1126 Patient Discharge Departure Vital Signs/ConditionVital SignsFirst Documented: Result Date Time Pulse Ox 98 05/20 1107 B/P 105/75 05/20 1107 B/P Mean 85 05/20 1107 O2 Delivery Room air 05/20 1107 Temp 98.2 05/20 1107 Pulse 90 05/20 1107 Resp 16 05/20 1107 Last Documented: Result Date Time Pulse Ox 98 05/20 1107 B/P 105/75 05/20 1107 B/P Mean 85 05/20 1107 O2 Delivery Room air 05/20 1107 Temp 98.2 05/20 1107 Pulse 90 05/20 1107 Resp 16 05/20 1107 All vital signs available at the time of this entry have been reviewed. Condition Stable Clinical ImpressionClinical ImpressionPrimary Impression: Abdominal painSecondary Impressions: Dysmenorrhea, Uterine fibroid Disposition DecisionDischarge )( Discharged to Home Yes )( Time 1258 )( Date 05/20/20 Discharge/Care Plan(Auto) PrescriptionsCurrent Visit ScriptsNo Known Home Medications ReferralsNo Primary or Family Physician (PCP/Family) Discharge NoteI have spoken with the patient and/or caregivers. I have explained the patient'scondition, diagnoses and treatment plan based on the information available to meat this time. I have answered the patient's and/or caregiver's questions and addressed any concerns. The patient and/or caregivers have as good an understanding of the patient's diagnosis, condition and treatment plan as can beexpected at this point. The vital signs have been stable. The patient's condition is stable and appropriate for discharge from the emergency department. The patient will pursue further outpatient evaluation with the primary care physician or other designated or consulting physician as outlined in the discharge instructions. The patient and/or caregivers are agreeable to this planof care and follow-up instructions have been explained in detail. The patient and/or caregivers have received these instructions in written format and have expressed an understanding of the discharge instructions. The patient and/or caregivers are aware that any significant change in condition or worsening of symptoms should prompt an immediate return to this or the closest emergency department or a call to 911. Quality MeasuresBP F/U for HTN F/u with PCP/other doc, BP in normal rangeSmoking Cessation Screened, non userTobacco Screening/Cessation Tobacco user Smoking Cessation CounselingThe patient was questioned regarding their smoking habits, and I have determined, as the patient's treating physician, that there is a medical necessity in regards to the patient's medical condition to provide smoking cessation program education. The patient was advised to stop smoking and counseled for a period ofgreater than 3 minutes. The patient was instructed to follow up with a primary care physician for smoking cessation and given information regarding local smoking cessation programs in the area. The patient received detailed discharge instructions as to how to stop smoking. The patient expressed an understanding of the need to follow up and the plan for smoking cessation. at 1344 Addendum 1: 06/10/20 1322 by José Arriola for Sanket Desir MD Patient AddendumAddendum at 1322RPT #:[id number] OF REPORTHCA [facility] department [id number]:26:00V.[id number] ilable for patient [id number]:22:57 [facility] 2020-05-20 11:26:00 [id number]+[id number] 9jcLwvZlNsBr7mPVADX/[id number]:2 6:00 [facility]EM[facility] PROVIDER REPORTREPORT#:[id number] REPORT STATUS: SignedDATE:05/20/20 TIME: 1126 PATIENT: ERWIN GAYLE UNIT #: [id number]#: [id number] ROOM/BED:AGE: 24 SEX: F PCP PHYS: No Primary or Family PhysicianSERVICE AUTHOR: José Arriola * ALL edits or amendments must be made on the electronic/computer document * See AddendumHPI-Abd Pain F Under 40 GeneralConfirmed Patient YesInitial Greet Date/Time 05/20/20 1106PCPFROM [facility] (DR CARNEY). HAS NOT ESTABLISHED HERE. PresentationChief Complaint Abdominal pain, Vaginal bleedingHx Obtained From Patient, OLD CHARTSudden in Onset? No ContextRecent Healthcare Recent doctor visit Free Text HPI NotesFree Text HPI [id number] female with history of Wilms tumor, had left kidney resectioning at age 65 years old without recurrence, who was seen at this facility on 04/21/2024 vaginal bleeding and right lower quadrant pain since April 04, 2020. Ultrasound showed a uterine fibroid with abdominal/pelvic CT unremarkable other than a fatty liver and a solitary right kidney which is without cancer or nephrosis. Patient was prescribed a 7-day course of Provera and Pepcid with a follow-up [facility] for fibroid and vaginal bleeding and some PCP contact information for other concerns. Patient did not follow-up. Patient returning to facility due to continuation of symptoms. Right lower quadrant "cramping "type pain intermittently remains which occasionally wakes her at night. Reports saturating vaginal bleeding constant with waxing and waning of quantity. Saturated 3 regular tampons today without clots. Discussedlast visits testing with risks and benefits. Patient opting for labs and ultrasound presently and will hold CT status post findings and other test results. Risk-Abd Pain F Under 40)( Ectopic Risk factors reviewed Review of Systems ROS StatementsAll systems rev neg except as marked. Focused Review of SystemsConstitutionalDenies: Chills, Fever, Lethargy. RespiratoryDenies: Cough, non-productive, Cough, productive, Shortness of breath. CardiovascularDenies: Chest pain, Syncope. GIReports: Abdominal pain (RLQ). FemaleReports: Vaginal bleeding - abnl. MusculoskeletalDenies: Back pain, Extremity pain. Past Medical History - AdultStated Complaint RLQ PAIN, STS PERIOD X4 MONTHSAllergiesCoded Allergies:No Known Allergies (04/21/20) Home MedicationsReported MedicationsNo Known Home Medications Review of Nursing Notes Triage notes reviewedAdditional Medical HistoryWilms tumor at age 5, resolvedAdditional Surgical HistoryLeft kidney removal at age 5 due to Wilms tumorAdditional Family HistorySister with endometriosisAlcohol Use Alcohol use (SOCIAL)Drug Use MarijuanaSmoking status for patients 13 years old or older: Current every day smokerPack years (pk/d)*(yrs): 1 (1 BLACK MILD DAILY)Date last smoked: still smokingAdditional Social HistoryHas reduce smoking habit from 10 black in [place] daily to 1 cigar daily this pastyear.State Controlled Subst DB Report Reviewed Yes Text/Dict NoteNARX SCORESNarcotic: 030Sedative:010Stimulant: 000OVERDOSE RISK SCORE: 110 No narcotics rx'd since 12/31/18 by PCP: Dr Bucio-minimal risk Physical Exam Vital SignsVital SignsFirst Documented: Result Date Time Pulse Ox 98 05/20 1107 B/P 105/75 05/20 1107 B/P Mean 85 05/20 1107 O2 Delivery Room air 05/20 1107 Temp 98.2 05/20 1107 Pulse 90 05/20 1107 Resp 05/20 1107 Last Documented: Result Date Time Pulse Ox 98 05/20 1107 B/P 105/75 05/20 1107 B/P Mean 85 05/20 1107 O2 Delivery Room air 05/20 1107 Temp 98.2 05/20 1107 Pulse 90 05/20 1107 Resp 16 05/20 1107 Review of Vital Signs Reviewed Focused PEGeneral/Const General/Const Awake, Alert, Well appearingMS Head Head NormocephalicEyes Eyes PERRLEars/Nose/Throat Ears/Nose/Throat Airway patent, Mucous membranes moist, Pharynx NLResp/Chest Respiratory/Chest Breath sounds NL, Breath sounds = bilat, No respiratory distress, No rales, No rhonchi, No wheezingCardiovascular Cardiovascular Heart rate NL, Regular rhythm, Heart sounds NL, Peripheral circulation NLAbdomen/GI Abdomen/GI Soft, Non-tender, McBurney's non-tender, No guarding, No rebound, BS normoactive, No distention, No hernia, No palpable massMS Back Back Inspection NL, Non-tender, No CVA tendernessSkin Skin Color NL, Warm, Dry, Turgor NLGenitourinary General Exam deferredRectum Rectum/Perineum Exam deferredNeurologic Neurologic Oriented X3, Speech NL, No motor deficits, No sensory deficits Interpretation Diagnostics Lab Results InterpretationResultsLaboratory Tests 05/20/20 1131:[Embedded Image Not Available]Laboratory Tests: 05/20 1131 Chemistry Sodium (135 - 148 mmol/L) 139 Potassium (3.5 - 5.1 mmol/L) 3.7 Chloride (101 - 109 mmol/L) 105 Carbon Dioxide (21 - 32 mmol/L) 24.5 Anion Gap (10 - 20 mmol/L) 13 BUN (3 - 21 mg/dL) 13 Creatinine (0.55 - 1.3 mg/dL) 0.80 Glomerular Filtr Rate (>=60 mL/min) > 60 BUN/Creatinine Ratio (10 - 20) 16.3 Glucose (74 - 106 mg/dL) 104 Calcium (8.4 - 10.2 mg/dL) 8.9 Total Bilirubin (0.0 - 1.0 mg/dL) 0.30 Direct Bilirubin (0.0 - 0.30 mg/dL) 0.10 AST (6 - 32 U/L) 14 ALT (12 - 78 U/L) 23 Total Alk Phosphatase (38 - 126 U/L) 65 Total Protein (6.5 - 8.4 g/dL) 8.0 Albumin (3.4 - 4.8 g/dL) 3.1 L Globulin (1 - 10 G/DL) 4.9 Albumin/Globulin Ratio (0.75 - 1.50 RATIO) 0.6 L Lipase (128 - 270 U/L) 134 Serum , Qual (NEGATIVE) NEGATIVE Hematology WBC (4.5 - 12.5 K/mm3) 8.3 RBC (3.7 - 5.2 mill/mm3) 4.91 Hgb (11.5 - 15.5 gram/dL) 11.1 L Hct (36.0 - 46.0 %) 36.0 MCV (80 - 98 fL) 73.3 L MCH (27.0 - 33.0 picogram) 22.6 L MCHC (33.0 - 36.0 gram/dL) 30.8 L RDW (11.6 - 16.2 %) 14.5 RDW Std Deviation (37.0 - 51.0 fL) 38.8 Plt Count (150 - 450 K/mm3) 419 MPV (6.7 - 11.0 fL) 9.7 Urines Urine Color (YELLOW) YELLOW Urine Appearance (CLEAR) HAZY H Urine pH (5.0 - 8.0) 6.0 Ur Specific [place] (1.001 - 1.035) 1.025 Urine Protein (Neg - 15 mg/dL) 30 (1+) H Urine Glucose (UA) (NEGATIVE mg/dL) norm Urine Ketones (NEGATIVE mg/dL) 5 (Trace) H Urine Blood (NEGATIVE Warren/uL) 150 (3+) H Urine Nitrite (NEGATIVE) NEGATIVE Urine Bilirubin (NEGATIVE mg/dL) NEGATIVE Urine Urobilinogen (0.0 - 0.2 mg/dL) 1 H Ur Leukocyte Esterase (NEGATIVE uL) 25 Philipp/uL (Trace) H Urine RBC (0 - 5 per HPF) 0-3 Urine WBC (0 - 5 per HPF) 0-5 Ur Epithelial Cells (Few per HPF) Moderate (5-10/hpf) Urine Bacteria (NONE per HPF) MANY Recent Impressions:ULTRASOUND - DUP AB/PEL/SC COMP 05/20 1210 Report Impression - Status: SIGNED Entered: 05/20/2020 1248 IMPRESSION: Multi fibroid uterus. Otherwise unremarkable pelvic ultrasound. Location: HCAImpression By: WilberDKAbby - Jimmie Roque M.D.ULTRASOUND - US PELVIS COMPLETE 05/20 1210 Report Impression - Status: SIGNED Entered: 05/20/2020 1248 IMPRESSION: Multi fibroid uterus. Otherwise unremarkable pelvic ultrasound. Location: HCAImpression By: Jhon Roque M.D.ULTRASOUND - US TRANSVAGINAL NON OB 05/20 1210 Report Impression - Status: SIGNED Entered: 05/20/2020 1248 IMPRESSION: Multi fibroid uterus. Otherwise unremarkable pelvic ultrasound. Location: HCAImpression By: Jhon Roque M.D. 04/21/20 US: Uterine fibroid measuring 4.8 x 3.9 cm in diameter Lab Imaging StatementLaboratory radiographic studies reviewed and considered in the medical decision-making. Point of Care TestingUrinalysis Interpretation Positive blood, Positive ketones, Clean Catch Specimen(contaminated) w/ 1+ protein 3+ blood (pt presents w/ vaginal bleeding) and few leukocytes many bacteria w/ mod amt epithelieal cells. Pulse Oximetry Pulse Ox % 98 On: Room air Interpretation Interpreted by me, Pulse oximetry normal Lab StudiesCBC Interpretation Hemoglobin 11.1 gm/dl (11.2 gm/dl on 04/21/20). No significantchange from previous Re-Evaluation MDM Free Text MDM NotesFree Text MDM NotesDiscussed test results with diagnosis and treatment plan. Prescribed tramadol for pain after narcotic website checked. Follow-up with gynecology and/or PCP, resources given. ED precautions given-patient voiced understanding and agrees with plan. )( Re-Evaluation/Progress #1)( Re-Eval Status Improved Abd Pain MDM Note F < 40The patient is resting comfortably and feels better, is alert and in no distress. The repeat examination is unremarkable and benign; in particular, there is no discomfort at McBurney's point. The history, exam, diagnostic testing, and current condition do not suggest acute appendicitis, bowel obstruction, tubovarian abscess, ectopic , ovarian torsion, acute cholecystitis, bowel perforation, major gastrointestinal bleeding, severe diverticulitis, sepsis, or other significant pathology to warrant further testing, continued ED treatment, admission, or surgical evaluation at this point. The vital signs have been stable. The patient does not have uncontrollable pain, intractable vomiting, or other significant symptoms. The patient's condition is stable and appropriate for discharge. The patient will pursue further outpatient evaluation with the primary care physician or other designated or consulting physician as indicated in the discharge instructions. Tissue Perfusion ReassessmentPatient tissue perfusion reassessment completed. ED CourseMedication(s) OrderedMedication(s) Ordered:Central Nervous System Agents Sig/Paula Start time Last Medication Dose Route Stop Time Status Admin Ketorolac 30 MG X1ED STA 05/20 1124 DC 05/20 Tromethamine IV 05/20 1125 1127 Electrolytic, Caloric, And Norma Sig/Paula Start time Last Medication Dose Route Stop Time Status Admin Sodium Chloride 1,000 ML X1ED STA 05/20 1124 DC 05/20 IV 05/20 1223 1126 Patient Discharge Departure Vital Signs/ConditionVital SignsFirst Documented: Result Date Time Pulse Ox 98 05/20 1107 B/P 105/75 05/20 1107 B/P Mean 85 05/20 1107 O2 Delivery Room air 05/20 1107 Temp 98.2 05/20 1107 Pulse 90 05/20 1107 Resp 16 05/20 1107 Last Documented: Result Date Time Pulse Ox 98 05/20 1107 B/P 105/75 05/20 1107 B/P Mean 85 05/20 1107 O2 Delivery Room air 05/20 1107 Temp 98.2 05/20 1107 Pulse 90 05/20 1107 Resp 16 05/20 1107 All vital signs available at the time of this entry have been reviewed. Condition Stable Clinical ImpressionClinical ImpressionPrimary Impression: Abdominal painSecondary Impressions: Dysmenorrhea, Uterine fibroid Disposition DecisionDischarge )( Discharged to Home Yes )( Time 1258 )( Date 05/20/20 Discharge/Care Plan(Auto) PrescriptionsCurrent Visit ScriptsNo Known Home Medications ReferralsNo Primary or Family Physician (PCP/Family) Discharge NoteI have spoken with the patient and/or caregivers. I have explained the patient'scondition, diagnoses and treatment plan based on the information available to meat this time. I have answered the patient's and/or caregiver's questions and addressed any concerns. The patient and/or caregivers have as good an understanding of the patient's diagnosis, condition and treatment plan as can beexpected at this point. The vital signs have been stable. The patient's condition is stable and appropriate for discharge from the emergency department. The patient will pursue further outpatient evaluation with the primary care physician or other designated or consulting physician as outlined in the discharge instructions. The patient and/or caregivers are agreeable to this planof care and follow-up instructions have been explained in detail. The patient and/or caregivers have received these instructions in written format and have expressed an understanding of the discharge instructions. The patient and/or caregivers are aware that any significant change in condition or worsening of symptoms should prompt an immediate return to this or the closest emergency department or a call to 911. Quality MeasuresBP F/U for HTN F/u with PCP/other doc, BP in normal rangeSmoking Cessation Screened, non userTobacco Screening/Cessation Tobacco user Smoking Cessation CounselingThe patient was questioned regarding their smoking habits, and I have determined, as the patient's treating physician, that there is a medical necessity in regards to the patient's medical condition to provide smoking cessation program education. The patient was advised to stop smoking and counseled for a period ofgreater than 3 minutes. The patient was instructed to follow up with a primary care physician for smoking cessation and given information regarding local smoking cessation programs in the area. The patient received detailed discharge instructions as to how to stop smoking. The patient expressed an understanding of the need to follow up and the plan for smoking cessation. at 1344 Addendum 1: 06/10/20 1322 by José Arriola Patient AddendumAddendum at 1322 at 1509RPT #:[id number] OF REPORTEDEmergency department [id number]:26:00V.[id number] ilable for patient [id number]:09:33 [facility] 2020-05-20 11:26:00 [id number]+MgqxyqX+uOds /[id number]+[id number]:2 6:00 [facility] ([facility])EMERGENCY PROVIDER REPORTREPORT#:[id number] REPORT STATUS: SignedDATE:05/20/20 TIME: 1126 PATIENT: ERWIN GAYLE UNIT #: [id number]#: [id number] ROOM/BED:AGE: 24 SEX: F PCP PHYS: No Primary or Family PhysicianSERVICE AUTHOR: José Arriola * ALL edits or amendments must be made on the electronic/computer document * See AddendumHPI-Abd Pain F Under 40 GeneralConfirmed Patient YesInitial Greet Date/Time 05/20/20 1106[facility] ([facility] HAS NOT ESTABLISHED HERE. PresentationChief Complaint Abdominal pain, Vaginal bleedingHx Obtained From Patient, OLD CHARTSudden in Onset? No ContextRecent Healthcare Recent doctor visit Free Text HPI NotesFree Text HPI [id number] female with history of Wilms tumor, had left kidney resectioning at age 65 years old without recurrence, who was seen at this facility on 04/21/2024 vaginal bleeding and right lower quadrant pain since April 04, 2020. Ultrasound showed a uterine fibroid with abdominal/pelvic CT unremarkable other than a fatty liver and a solitary right kidney which is without cancer or nephrosis. Patient was prescribed a 7-day course of Provera and Pepcid with a follow-up [facility] for fibroid and vaginal bleeding and some PCP contact information for other concerns. Patient did not follow-up. Patient returning to facility due to continuation of symptoms. Right lower quadrant "cramping "type pain intermittently remains which occasionally wakes her at night. Reports saturating vaginal bleeding constant with waxing and waning of quantity. Saturated 3 regular tampons today without clots. Discussedlast visits testing with risks and benefits. Patient opting for labs and ultrasound presently and will hold CT status post findings and other test results. Risk-Abd Pain F Under 40)( Ectopic Risk factors reviewed Review of Systems ROS StatementsAll systems rev neg except as marked. Focused Review of SystemsConstitutionalDenies: Chills, Fever, Lethargy. RespiratoryDenies: Cough, non-productive, Cough, productive, Shortness of breath. CardiovascularDenies: Chest pain, Syncope. GIReports: Abdominal pain (RLQ). FemaleReports: Vaginal bleeding - abnl. MusculoskeletalDenies: Back pain, Extremity pain. Past Medical History - AdultStated Complaint RLQ PAIN, STS PERIOD X4 MONTHSAllergiesCoded Allergies:No Known Allergies (04/21/20) Home MedicationsReported MedicationsNo Known Home Medications Review of Nursing Notes Triage notes reviewedAdditional Medical HistoryWilms tumor at age 5, resolvedAdditional Surgical HistoryLeft kidney removal at age 5 due to Wilms tumorAdditional Family HistorySister with endometriosisAlcohol Use Alcohol use (SOCIAL)Drug Use MarijuanaSmoking status for patients 13 years old or older: Current every day smokerPack years (pk/d)*(yrs): 1 (1 BLACK MILD DAILY)Date last smoked: still smokingAdditional Social HistoryHas reduce smoking habit from 10 black in miles daily to 1 cigar daily this pastyear.State Controlled Subst DB Report Reviewed Yes Text/Dict NoteNARX SCORESNarcotic: 030Sedative:010Stimulant: 000OVERDOSE RISK SCORE: 110 No narcotics rx'd since 12/31/18 by PCP: Dr Bucio-minimal risk Physical Exam Vital SignsVital SignsFirst Documented: Result Date Time Pulse Ox 98 05/20 1107 B/P 105/75 05/20 1107 B/P Mean 85 05/20 1107 O2 Delivery Room air 05/20 1107 Temp 98.2 05/20 1107 Pulse 90 05/20 1107 Resp 16 05/20 1107 Last Documented: Result Date Time Pulse Ox 98 05/20 1107 B/P 105/75 05/20 1107 B/P Mean 85 05/20 1107 O2 Delivery Room air 05/20 1107 Temp 98.2 05/20 1107 Pulse 90 05/20 1107 Resp 16 05/20 1107 Review of Vital Signs Reviewed Focused PEGeneral/Const General/Const Awake, Alert, Well appearingMS Head Head NormocephalicEyes Eyes PERRLEars/Nose/Throat Ears/Nose/Throat Airway patent, Mucous membranes moist, Pharynx NLResp/Chest Respiratory/Chest Breath sounds NL, Breath sounds = bilat, No respiratory distress, No rales, No rhonchi, No wheezingCardiovascular Cardiovascular Heart rate NL, Regular rhythm, Heart sounds NL, Peripheral circulation NLAbdomen/GI Abdomen/GI Soft, Non-tender, McBurney's non-tender, No guarding, No rebound, BS normoactive, No distention, No hernia, No palpable massMS Back Back Inspection NL, Non-tender, No CVA tendernessSkin Skin Color NL, Warm, Dry, Turgor NLGenitourinary General Exam deferredRectum Rectum/Perineum Exam deferredNeurologic Neurologic Oriented X3, Speech NL, No motor deficits, No sensory deficits Interpretation Diagnostics Lab Results InterpretationResultsLaboratory Tests 05/20/20 1131:[Embedded Image Not Available]Laboratory Tests: 05/20 1131 Chemistry Sodium (135 - 148 mmol/L) 139 Potassium (3.5 - 5.1 mmol/L) 3.7 Chloride (101 - 109 mmol/L) 105 Carbon Dioxide (21 - 32 mmol/L) 24.5 Anion Gap (10 - 20 mmol/L) 13 BUN (3 - 21 mg/dL) 13 Creatinine (0.55 - 1.3 mg/dL) 0.80 Glomerular Filtr Rate (>=60 mL/min) > 60 BUN/Creatinine Ratio (10 - 20) 16.3 Glucose (74 - 106 mg/dL) 104 Calcium (8.4 - 10.2 mg/dL) 8.9 Total Bilirubin (0.0 - 1.0 mg/dL) 0.30 Direct Bilirubin (0.0 - 0.30 mg/dL) 0.10 AST (6 - 32 U/L) 14 ALT (12 - 78 U/L) 23 Total Alk Phosphatase (38 - 126 U/L) 65 Total Protein (6.5 - 8.4 g/dL) 8.0 Albumin (3.4 - 4.8 g/dL) 3.1 L Globulin (1 - 10 G/DL) 4.9 Albumin/Globulin Ratio (0.75 - 1.50 RATIO) 0.6 L Lipase (128 - 270 U/L) 134 Serum , Qual (NEGATIVE) NEGATIVE Hematology WBC (4.5 - 12.5 K/mm3) 8.3 RBC (3.7 - 5.2 mill/mm3) 4.91 Hgb (11.5 - 15.5 gram/dL) 11.1 L Hct (36.0 - 46.0 %) 36.0 MCV (80 - 98 fL) 73.3 L MCH (27.0 - 33.0 picogram) 22.6 L MCHC (33.0 - 36.0 gram/dL) 30.8 L RDW (11.6 - 16.2 %) 14.5 RDW Std Deviation (37.0 - 51.0 fL) 38.8 Plt Count (150 - 450 K/mm3) 419 MPV (6.7 - 11.0 fL) 9.7 Urines Urine Color (YELLOW) YELLOW Urine Appearance (CLEAR) HAZY H Urine pH (5.0 - 8.0) 6.0 Ur Specific [place] (1.001 - 1.035) 1.025 Urine Protein (Neg - 15 mg/dL) 30 (1+) H Urine Glucose (UA) (NEGATIVE mg/dL) norm Urine Ketones (NEGATIVE mg/dL) 5 (Trace) H Urine Blood (NEGATIVE Warren/uL) 150 (3+) H Urine Nitrite (NEGATIVE) NEGATIVE Urine Bilirubin (NEGATIVE mg/dL) NEGATIVE Urine Urobilinogen (0.0 - 0.2 mg/dL) 1 H Ur Leukocyte Esterase (NEGATIVE uL) 25 Philipp/uL (Trace) H Urine RBC (0 - 5 per HPF) 0-3 Urine WBC (0 - 5 per HPF) 0-5 Ur Epithelial Cells (Few per HPF) Moderate (5-10/hpf) Urine Bacteria (NONE per HPF) MANY Recent Impressions:ULTRASOUND - DUP AB/PEL/SC COMP 05/20 1210 Report Impression - Status: SIGNED Entered: 05/20/2020 1248 IMPRESSION: Multi fibroid uterus. Otherwise unremarkable pelvic ultrasound. Location: HCAImpression By: Jhon Roque M.D.ULTRASOUND - US PELVIS COMPLETE 05/20 1210 Report Impression - Status: SIGNED Entered: 05/20/2020 1248 IMPRESSION: Multi fibroid uterus. Otherwise unremarkable pelvic ultrasound. Location: HCAImpression By: Jhon Roque M.D.ULTRASOUND - US TRANSVAGINAL NON OB 05/20 1210 Report Impression - Status: SIGNED Entered: 05/20/2020 1248 IMPRESSION: Multi fibroid uterus. Otherwise unremarkable pelvic ultrasound. Location: HCAImpression By: [email or web address] - Jimmie Roque M.D. 04/21/20 US: Uterine fibroid measuring 4.8 x 3.9 cm in diameter Lab Imaging StatementLaboratory radiographic studies reviewed and considered in the medical decision-making. Point of Care TestingUrinalysis Interpretation Positive blood, Positive ketones, Clean Catch Specimen(contaminated) w/ 1+ protein 3+ blood (pt presents w/ vaginal bleeding) and few leukocytes many bacteria w/ mod amt epithelieal cells. Pulse Oximetry Pulse Ox % 98 On: Room air Interpretation Interpreted by me, Pulse oximetry normal Lab StudiesCBC Interpretation Hemoglobin 11.1 gm/dl (11.2 gm/dl on 04/21/20). No significantchange from previous Re-Evaluation MDM Free Text MDM NotesFree Text MDM NotesDiscussed test results with diagnosis and treatment plan. Prescribed tramadol for pain after narcotic website checked. Follow-up with gynecology and/or PCP, resources given. ED precautions given-patient voiced understanding and agrees with plan. )( Re-Evaluation/Progress #1)( Re-Eval Status Improved Abd Pain MDM Note F < 40The patient is resting comfortably and feels better, is alert and in no distress. The repeat examination is unremarkable and benign; in particular, there is no discomfort at McBurney's point. The history, exam, diagnostic testing, and current condition do not suggest acute appendicitis, bowel obstruction, tubovarian abscess, ectopic , ovarian torsion, acute cholecystitis, bowel perforation, major gastrointestinal bleeding, severe diverticulitis, sepsis, or other significant pathology to warrant further testing, continued ED treatment, admission, or surgical evaluation at this point. The vital signs have been stable. The patient does not have uncontrollable pain, intractable vomiting, or other significant symptoms. The patient's condition is stable and appropriate for discharge. The patient will pursue further outpatient evaluation with the primary care physician or other designated or consulting physician as indicated in the discharge instructions. Tissue Perfusion ReassessmentPatient tissue perfusion reassessment completed. ED CourseMedication(s) OrderedMedication(s) Ordered:Central Nervous System Agents Sig/Puala Start time Last Medication Dose Route Stop Time Status Admin Ketorolac 30 MG X1ED STA 05/20 1124 DC 05/20 Tromethamine IV 05/20 1125 1127 Electrolytic, Caloric, And Norma Sig/Paula Start time Last Medication Dose Route Stop Time Status Admin Sodium Chloride 1,000 ML X1ED STA 05/20 1124 DC 05/20 IV 05/20 1223 1126 Patient Discharge Departure Vital Signs/ConditionVital SignsFirst Documented: Result Date Time Pulse Ox 98 05/20 1107 B/P 105/75 05/20 1107 B/P Mean 85 05/20 1107 O2 Delivery Room air 05/20 1107 Temp 98.2 05/20 1107 Pulse 90 05/20 1107 Resp 05/20 110 Last Documented: Result Date Time Pulse Ox 98 05/20 1107 B/P 105/75 05/20 1107 B/P Mean 85 05/20 1107 O2 Delivery Room air 05/20 1107 Temp 98.2 05/20 1107 Pulse 90 05/20 1107 Resp 05/20 1107 All vital signs available at the time of this entry have been reviewed. Condition Stable Clinical ImpressionClinical ImpressionPrimary Impression: Abdominal painSecondary Impressions: Dysmenorrhea, Uterine fibroid Disposition DecisionDischarge )( Discharged to Home Yes )( Time 1258 )( Date 05/20/20 Discharge/Care Plan(Auto) PrescriptionsCurrent Visit ScriptsNo Known Home Medications ReferralsNo Primary or Family Physician (PCP/Family) Discharge NoteI have spoken with the patient and/or caregivers. I have explained the patient'scondition, diagnoses and treatment plan based on the information available to meat this time. I have answered the patient's and/or caregiver's questions and addressed any concerns. The patient and/or caregivers have as good an understanding of the patient's diagnosis, condition and treatment plan as can beexpected at this point. The vital signs have been stable. The patient's condition is stable and appropriate for discharge from the emergency department. The patient will pursue further outpatient evaluation with the primary care physician or other designated or consulting physician as outlined in the discharge instructions. The patient and/or caregivers are agreeable to this planof care and follow-up instructions have been explained in detail. The patient and/or caregivers have received these instructions in written format and have expressed an understanding of the discharge instructions. The patient and/or caregivers are aware that any significant change in condition or worsening of symptoms should prompt an immediate return to this or the closest emergency department or a call to 911. Quality MeasuresBP F/U for HTN F/u with PCP/other doc, BP in normal rangeSmoking Cessation Screened, non userTobacco Screening/Cessation Tobacco user Smoking Cessation CounselingThe patient was questioned regarding their smoking habits, and I have determined, as the patient's treating physician, that there is a medical necessity in regards to the patient's medical condition to provide smoking cessation program education. The patient was advised to stop smoking and counseled for a period ofgreater than 3 minutes. The patient was instructed to follow up with a primary care physician for smoking cessation and given information regarding local smoking cessation programs in the area. The patient received detailed discharge instructions as to how to stop smoking. The patient expressed an understanding of the need to follow up and the plan for smoking cessation. at 1344 Addendum 1: 06/10/20 1322 by José Arriola Patient AddendumAddendum at 1322 at 1509 Addendum 2: 06/10/20 1509 by Sanket Desir MD Patient AddendumAddendum All charts, labs, and imaging studies were reviewed. I agree with the PA/LICENSED NUCLEAR OPERATOR'sfindings, exam, and plan. at 1509RPT #:[id number] OF REPORTEDEmergency department [id number].[id number] ilable for patient [id number]:14 [facility] 2020-04-21 16:39:00 [id number] 9:00 [facility] ([facility])EMERGENCY PROVIDER REPORTREPORT#:[id number] REPORT STATUS: SignedDATE:04/21/20 TIME: 1638 PATIENT: ERWIN GAYLE UNIT #: [id number]#: [id number] ROOM/BED:AGE: 24 SEX: F PCP PHYS: No Primary or Family PhysicianSERVICE AUTHOR: Sarah Wills MD * ALL edits or amendments must be made on the electronic/computer document * Rfafi Wills 04/21/20 1639:HPI-Abd Pain F Under 40 GeneralPCPNone PresentationChief Complaint Abdominal pain, Vaginal bleeding Free Text HPI NotesFree Text HPI [id number] female presents with multiple complaints. 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 She has not on any daily medications. She presents with intermittent right lower quadrant abdominal pain that occurs for approximately an hour at a time that is sharp in nature with no obvious alleviating or exacerbating factors over the last 2 weeks. Additionally she has had intermittent vaginal bleeding for the last month. Over the last 24 hours she isdeveloped left-sided pleuritic chest pain is also intermittent without cough fever or chills. She denies nausea vomiting or diarrhea. She recently moved [facility] 3 months ago and has not established care with any primary care physician. She smokes marijuana intermittently but denies any tobacco use. Risk-Abd Pain F Under 40 Free Text Risk NotesFree Text Risk NotesHEART Score is 1. History is slightly suspicious, EKG appears normal. Patient is less than the age of 45. Patient was given 1 risk factor for obesity. Review of Systems ROS StatementsAll systems rev neg except as marked. Focused Review of SystemsConstitutionalDenies: Chills, Fatigue, Fever. RespiratoryReports: Shortness of breath. Denies: Cough, non-productive, Cough, productive. CardiovascularReports: Chest pain. Denies: Syncope. GIReports: Abdominal pain. Denies: Constipation, Diarrhea, Nausea, Vomiting. FemaleReports: Vaginal bleeding - abnl. Denies: Dysuria, Flank pain. MusculoskeletalDenies: Back pain. Additional Review of SystemsEyesDenies: Discharge bilat, Eye pain bilat. Ears/Nose/ThroatDenies: Nasal congestion, Sore throat. SkinDenies: Rash. Allergy/ImmunDenies: Rhinorrhea. NeurologicDenies: Dizziness, Focal weakness, Generalized weakness, Headache, Lightheaded, Syncope. Past Medical History - AdultStated Complaint CHEST PAINAllergiesCoded Allergies:No Known Allergies (04/21/20) Home MedicationsReported MedicationsNo Known Home Medications Physical Exam Vital SignsVital SignsFirst Documented: Result Date Time Pulse Ox 98 04/21 1635 B/P 113/81 04/21 1635 B/P Mean 91 04/21 1635 Temp 36.8 04/21 1635 Pulse 89 04/21 1635 Resp 18 04/21 1635 Last Documented: Result Date Time Pulse Ox 98 04/21 1635 B/P 113/81 04/21 1635 B/P Mean 91 04/21 1635 Temp 36.8 04/21 1635 Pulse 89 04/21 1635 Resp 18 04/21 1635 Review of Vital Signs Reviewed Focused PEGeneral/Const General/Const Awake, Alert, Well appearingMS Head Head NormocephalicEyes Eyes PERRLEars/Nose/Throat Ears/Nose/Throat Airway patent, Mucous membranes moist, Pharynx NLResp/Chest Respiratory/Chest Breath sounds NL, Breath sounds = bilat, No respiratory distress, No rales, No rhonchi, No wheezingCardiovascular Cardiovascular Heart rate NL, Regular rhythm, Heart sounds NL, Peripheral circulation NLAbdomen/GI Abdomen/GI Soft, McBurney's non-tender, No guarding, No rebound, No distention, No hernia, No palpable mass Tenderness/Guarding/Rebound Tender RLQ, Tender epigastric, Tender suprapubic. Negative: Tender LUQ, Tender LLQ, Guarding voluntary, Guarding involuntary, Rebound localized, Rebounddiffuse, Rigid to palpation. MS Back Back Inspection NL, Non-tender, No CVA tendernessSkin Skin Color NL, Warm, Dry, Turgor NLNeurologic Neurologic Oriented X3, Speech NL, No motor deficits, No sensory deficits Interpretation Diagnostics Lab Results InterpretationResultsLaboratory Tests 04/21/20 1644:[Embedded Image Not Available]Laboratory Tests: 04/21 04/21 1650 1644 Chemistry Sodium (136 - 145 mmol/L) 138 Potassium (3.5 - 5.1 mmol/L) 3.8 Chloride (101 - 109 mmol/L) 105 Carbon Dioxide (21 - 32 mmol/L) 24.4 Anion Gap (10 - 20 mmol/L) 12 BUN (3 - 21 mg/dL) 15 Creatinine (0.55 - 1.3 mg/dL) 0.98 Glomerular Filtr Rate (>=60 mL/min) > 60 BUN/Creatinine Ratio (10 - 20) 15.3 Glucose (74 - 106 mg/dL) 89 Calcium (8.4 - 10.2 mg/dL) 8.8 Total Bilirubin (0.0 - 1.0 mg/dL) 0.20 Direct Bilirubin (0.0 - 0.30 mg/dL) 0.00 AST (6 - 32 U/L) 14 ALT (12 - 78 U/L) 23 Total Alk Phosphatase (38 - 126 U/L) 63 Troponin I (0.00 - 0.056 ng/mL) <0.015 Total Protein (6.5 - 8.4 g/dL) 8.1 Albumin (3.4 - 4.8 g/dL) 3.3 L Globulin (1 - 10 G/DL) 4.8 Albumin/Globulin Ratio (0.75 - 1.50 RATIO) 0.69 L Lipase (128 - 270 U/L) 161 Serum , Qual (NEGATIVE) NEGATIVE Hematology WBC (4.5 - 12.5 K/mm3) 9.9 RBC (3.7 - 5.2 mill/mm3) 4.84 Hgb (11.5 - 15.5 gram/dL) 11.2 L Hct (36.0 - 46.0 %) 36.0 MCV (80 - 98 fL) 74.4 L MCH (27.0 - 33.0 picogram) 23.1 L MCHC (33.0 - 36.0 gram/dL) 31.1 L RDW (11.6 - 16.2 %) 15.3 RDW Std Deviation (37.0 - 51.0 fL) 41.9 Plt Count (150 - 450 K/mm3) 376 MPV (6.7 - 11.0 fL) 9.7 Urines Urine Color (YELLOW) DARK YELLOW H Urine Appearance (CLEAR) HAZY H Urine pH (5.0 - 8.0) 5.0 Ur Specific [place] (1.001 - 1.035) 1.020 Urine Protein (Neg - 15 mg/dL) 15 (TRACE) H Urine Glucose (UA) (NEGATIVE mg/dL) norm Urine Ketones (NEGATIVE mg/dL) 5 (Trace) H Urine Blood (NEGATIVE Warren/uL) neg Urine Nitrite (NEGATIVE) NEGATIVE Urine Bilirubin (NEGATIVE mg/dL) NEGATIVE Urine Urobilinogen (0.0 - 0.2 mg/dL) 1 H Ur Leukocyte Esterase (NEGATIVE uL) 25 Philipp/uL (Trace) H Urine RBC (0 - 5 per HPF) NONE SEEN Urine WBC (0 - 5 per HPF) 0-5 Ur Epithelial Cells (Few per HPF) Few (2-5/hpf) Urine Bacteria (NONE per HPF) MANY H Urine Mucus (NONE - FEW per LPF) MODERATE H Recent Impressions:ULTRASOUND - DUP AB/PEL/SC COMP 04/21 1722 Report Impression - Status: SIGNED Entered: 04/21/2020 190 IMPRESSION:1. Uterine fibroid.2. No adnexal lesions. Location code: HCAImpression By: Mecca Lees M.D.ULTRASOUND - US TRANSVAGINAL NON OB 04/21 172 Report Impression - Status: SIGNED Entered: 04/21/2020 1904 IMPRESSION:1. Uterine fibroid.2. No adnexal lesions. Location code: HCAImpression By: Mecca Lees M.D.RADIOLOGY - XR CHEST 1 V 04/21 1725 Report Impression - Status: SIGNED Entered: 04/21/2020 1804 IMPRESSION: Normal chest x-ray. Location code: HCAImpression By: Mecca Lees M.D.CAT SCAN - CT ABD PELVIS W/CONT 04/21 1752 Report Impression - Status: SIGNED Entered: 04/21/2020 1939 IMPRESSION:1. No acute abdominal or pelvic abnormalities.2. Fatty infiltration of the liver.3. Solitary and unremarkable right kidney.4. Uterine fibroid. Location code: HCAImpression By: Mecca Lees M.D. Point of Care TestingPulse Oximetry Pulse Ox % 98 On: Room air Interpretation Interpreted by me, Pulse oximetry normal Time 1635 ECG #1 InterpretationText/Dict NoteEKG shows generalized T wave flattening. There is asymmetrical T wave inversionin lead III. No ST segment elevation depressions.Date 04/21/20Time 1636Interpreted by and reviewed by me, ED physicianNL ECG Interpretation Normal rate, Normal sinus rhythm, No STEMI, Normal QRS, Normal intervalsRate 76 Re-Evaluation MDM Free Text MDM NotesFree Text MDM [id number] female presents with 2 weeks of intermittent right lower quadrant pain, 24 hours of pleuritic left-sided chest pain and 1 month of vaginal spotting. Vital signs were unremarkable. )( Re-Evaluation/Progress #1Text/Dict NotePatient re-evaluated and I discussed results of testing with patient. Patient isresting comfortably. There are no signs of respiratory distress. Patient is neurologically intact. Patient speaking full sentences. All questions were answered. Urinalysis is negative for UTI. Patient has mild anemia. There is no acute kidney injury. No significant electrolyte abnormalities. No evidence of hepatitis. Lipase is normal therefore doubt pancreatitis. test is also negative. We discussed testing patient have CT scan of the abdomen pelvis to rule out appendicitis and other intra-abdominal pathology. Patient also reports intermittent vaginal spotting without passage of clots. She states fibroids are in the family therefore transvaginal ultrasound was performed. I recommended patient have a pelvic exam performed to have screening for sexually transmitted infection and visualization of the cervix however patient declined and instead requested to have gonorrhea chlamydia testing sent off a urine specimen as an alternative and have women's clinic follow-up.Time of Re-Eval 1715 ED CourseMedication(s) OrderedMedication(s) Ordered:Autonomic Drugs Sig/Paula Start time Last Medication Dose Route Stop Time Status Admin Cyclobenzaprine HCl 20 MG X1ED STA 04/21 1639 DC 04/21 PO 04/21 1640 1650 Central Nervous System Agents Sig/Paula Start time Last Medication Dose Route Stop Time Status Admin Acetaminophen 1,000 MG X1ED 04/21 1645 DCD 04/21 PO 05/21 1644 1650 Diagnostic Agents Sig/Paula Start time Last Medication Dose Route Stop Time Status Admin Iopamidol 0 .STK-MED ONE 04/21 1733 DC 04/21 .ROUTE 1757 Electrolytic, Caloric, And Norma Sig/Paula Start time Last Medication Dose Route Stop Time Status Admin Sodium Chloride 1,000 ML X1ED STA 04/21 1638 DC 04/21 IV 04/21 1737 1650 Gastrointestinal Drugs Sig/Paula Start time Last Medication Dose Route Stop Time Status Admin Famotidine 20 MG X1ED STA 04/21 1638 DC 04/21 IV 04/21 1639 1650 Patient Discharge Departure Vital Signs/ConditionVital SignsFirst Documented: Result Date Time Pulse Ox 98 04/21 1635 B/P 113/81 04/21 1635 B/P Mean 91 04/21 1635 Temp 36.8 04/21 1635 Pulse 89 04/21 1635 Resp 18 04/21 1635 Last Documented: Result Date Time Pulse Ox 98 04/21 1635 B/P 113/81 04/21 1635 B/P Mean 91 04/21 1635 Temp 36.8 04/21 1635 Pulse 89 04/21 1635 Resp 18 04/21 1635 All vital signs available at the time of this entry have been reviewed. Discharge/Care Plan(Auto) PrescriptionsCurrent Visit ScriptsNo Known Home Medications Ethan Gaytan 04/21/201946:HPI-Abd Pain F Under 40 GeneralInitial Greet Date/Time 04/21/20 1638 Risk-Abd Pain F Under 40)( Ectopic Risk factors reviewed Re-Evaluation MDM Free Text MDM NotesFree Text MDM NotesUltrasound showed uterine fibroid. CT scan was unremarkable. Patient was treated with IV fluids, Tylenol and Flexeril. Symptoms improved. Patient will be discharged home with outpatient follow-up. )( Re-Evaluation/Progress #1)( Re-Eval Status Improved Patient Discharge Departure Vital Signs/ConditionCondition Stable Clinical ImpressionClinical ImpressionPrimary Impression: Atypical chest painSecondary Impressions: Dysmenorrhea, Uterine fibroid Disposition DecisionDischarge )( Discharged to Home Yes )( Time 1954 )( Date 04/21/20 Discharge/Care PlanCounseled Regarding Diagnosis, Lab results, Imaging studies, Prescriptions, Needfor follow-up, When to return to ED Discharge NoteI have spoken with the patient and/or caregivers. I have explained the patient'scondition, diagnoses and treatment plan based on the information available to meat this time. I have answered the patient's and/or caregiver's questions and addressed any concerns. The patient and/or caregivers have as good an understanding of the patient's diagnosis, condition and treatment plan as can beexpected at this point. The vital signs have been stable. The patient's condition is stable and appropriate for discharge from the emergency department. The patient will pursue further outpatient evaluation with the primary care physician or other designated or consulting physician as outlined in the discharge instructions. The patient and/or caregivers are agreeable to this planof care and follow-up instructions have been explained in detail. The patient and/or caregivers have received these instructions in written format and have expressed an understanding of the discharge instructions. The patient and/or caregivers are aware that any significant change in condition or worsening of symptoms should prompt an immediate return to this or the closest emergency department or a call to 911. at 0106RPT #:[id number] OF REPORTEDEmerozark health medical center department [id number]:39:00V.[id number] ilable for patient [id number]:06:18 [facility] 2020-04-21 16:39:00 [id number] 9:00 [facility] ([facility])EMERGENCY PROVIDER REPORTREPORT#:[id number] REPORT STATUS: SignedDATE:04/21/20 TIME: 1638 PATIENT: ERWIN GAYLE UNIT #: [id number]#: [id number] ROOM/BED:AGE: 24 SEX: F PCP PHYS: No Primary or Family PhysicianSERVICE AUTHOR: Sarah Wills MD * ALL edits or amendments must be made on the electronic/computer document * Raffi Wills 04/21/201638:HPI-Abd Pain F Under 40 GeneralInitial Greet Date/Time 04/21/20 1638PCPNone PresentationChief Complaint Abdominal pain, Vaginal bleeding Free Text HPI NotesFree Text HPI [id number] female presents with multiple complaints. 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 She has not on any daily medications. She presents with intermittent right lower quadrant abdominal pain that occurs for approximately an hour at a time that is sharp in nature with no obvious alleviating or exacerbating factors over the last 2 weeks. Additionally she has had intermittent vaginal bleeding for the last month. Over the last 24 hours she isdeveloped left-sided pleuritic chest pain is also intermittent without cough fever or chills. She denies nausea vomiting or diarrhea. She recently moved [facility] 3 months ago and has not established care with any primary care physician. She smokes marijuana intermittently but denies any tobacco use. Risk-Abd Pain F Under 40 Free Text Risk NotesFree Text Risk NotesHEART Score is 1. History is slightly suspicious, EKG appears normal. Patient is less than the age of 45. Patient was given 1 risk factor for obesity. Review of Systems ROS StatementsAll systems rev neg except as marked. Focused Review of SystemsConstitutionalDenies: Chills, Fatigue, Fever. RespiratoryReports: Shortness of breath. Denies: Cough, non-productive, Cough, productive. CardiovascularReports: Chest pain. Denies: Syncope. GIReports: Abdominal pain. Denies: Constipation, Diarrhea, Nausea, Vomiting. FemaleReports: Vaginal bleeding - abnl. Denies: Dysuria, Flank pain. MusculoskeletalDenies: Back pain. Additional Review of SystemsEyesDenies: Discharge bilat, Eye pain bilat. Ears/Nose/ThroatDenies: Nasal congestion, Sore throat. SkinDenies: Rash. Allergy/ImmunDenies: Rhinorrhea. NeurologicDenies: Dizziness, Focal weakness, Generalized weakness, Headache, Lightheaded, Syncope. Past Medical History - AdultStated Complaint CHEST PAINAllergiesCoded Allergies:No Known Allergies (04/21/20) Home MedicationsReported MedicationsNo Known Home Medications Physical Exam Vital SignsVital SignsFirst Documented: Result Date Time Pulse Ox 98 04/21 1635 B/P 113/81 04/21 1635 B/P Mean 91 04/21 1635 Temp 36.8 04/21 1635 Pulse 89 04/21 1635 Resp 18 04/21 1635 Last Documented: Result Date Time Pulse Ox 98 04/21 1635 B/P 113/81 04/21 1635 B/P Mean 91 04/21 163 Temp 36.8 04/21 163 Pulse 89 04/21 1635 Resp 18 04/21 163 Review of Vital Signs Reviewed Focused PEGeneral/Const General/Const Awake, Alert, Well appearingMS Head Head NormocephalicEyes Eyes PERRLEars/Nose/Throat Ears/Nose/Throat Airway patent, Mucous membranes moist, Pharynx NLResp/Chest Respiratory/Chest Breath sounds NL, Breath sounds = bilat, No respiratory distress, No rales, No rhonchi, No wheezingCardiovascular Cardiovascular Heart rate NL, Regular rhythm, Heart sounds NL, Peripheral circulation NLAbdomen/GI Abdomen/GI Soft, McBurney's non-tender, No guarding, No rebound, No distention, No hernia, No palpable mass Tenderness/Guarding/Rebound Tender RLQ, Tender epigastric, Tender suprapubic. Negative: Tender LUQ, Tender LLQ, Guarding voluntary, Guarding involuntary, Rebound localized, Rebounddiffuse, Rigid to palpation. MS Back Back Inspection NL, Non-tender, No CVA tendernessSkin Skin Color NL, Warm, Dry, Turgor NLNeurologic Neurologic Oriented X3, Speech NL, No motor deficits, No sensory deficits Interpretation Diagnostics Point of Care TestingPulse Oximetry Pulse Ox % 98 On: Room air Interpretation Interpreted by me, Pulse oximetry normal Time 1635 ECG #1 InterpretationText/Dict NoteEKG shows generalized T wave flattening. There is asymmetrical T wave inversionin lead III. No ST segment elevation depressions.Date 04/21/Time 1636Interpreted by and reviewed by me, ED physicianNL ECG Interpretation Normal rate, Normal sinus rhythm, No STEMI, Normal QRS, Normal intervalsRate 76 Re-Evaluation MDM Free Text MDM NotesFree Text MDM [id number] female presents with 2 weeks of intermittent right lower quadrant pain, 24 hours of pleuritic left-sided chest pain and 1 month of vaginal spotting. Vital signs were unremarkable. )( Re-Evaluation/Progress #1Text/Dict NotePatient re-evaluated and I discussed results of testing with patient. Patient isresting comfortably. There are no signs of respiratory distress. Patient is neurologically intact. Patient speaking full sentences. All questions were answered. Urinalysis is negative for UTI. Patient has mild anemia. There is no acute kidney injury. No significant electrolyte abnormalities. No evidence of hepatitis. Lipase is normal therefore doubt pancreatitis. test is also negative. We discussed testing patient have CT scan of the abdomen pelvis to rule out appendicitis and other intra-abdominal pathology. Patient also reports intermittent vaginal spotting without passage of clots. She states fibroids are in the family therefore transvaginal ultrasound was performed. I recommended patient have a pelvic exam performed to have screening for sexually transmitted infection and visualization of the cervix however patient declined and instead requested to have gonorrhea chlamydia testing sent off a urine specimen as an alternative and have women's clinic follow-up.Time of Re-Eval 1715 ED CourseMedication(s) OrderedMedication(s) Ordered:Autonomic Drugs Sig/Paula Start time Last Medication Dose Route Stop Time Status Admin Cyclobenzaprine HCl 20 MG X1ED STA 04/21 1639 DC 04/21 PO 04/21 1640 1650 Central Nervous System Agents Sig/Paula Start time Last Medication Dose Route Stop Time Status Admin Acetaminophen 1,000 MG X1ED 04/21 1645 DCD 04/21 PO 05/21 1644 1650 Diagnostic Agents Sig/Paula Start time Last Medication Dose Route Stop Time Status Admin Iopamidol 0 .STK-MED ONE 04/21 1733 DC 04/21 .ROUTE 1757 Electrolytic, Caloric, And Norma Sig/Paula Start time Last Medication Dose Route Stop Time Status Admin Sodium Chloride 1,000 ML X1ED STA 04/21 1638 DC 04/21 IV 04/21 1737 1650 Gastrointestinal Drugs Sig/Paula Start time Last Medication Dose Route Stop Time Status Admin Famotidine 20 MG X1ED STA 04/21 1638 DC 04/21 IV 04/21 1639 1650 Patient Discharge Departure Vital Signs/ConditionVital SignsFirst Documented: Result Date Time Pulse Ox 98 04/21 1635 B/P 113/81 04/21 1635 B/P Mean 91 04/21 1635 Temp 36.8 04/21 1635 Pulse 89 04/21 1635 Resp 18 04/21 1635 Last Documented: Result Date Time Pulse Ox 98 04/21 1635 B/P 113/81 04/21 1635 B/P Mean 91 04/21 1635 Temp 36.8 04/21 1635 Pulse 89 04/21 1635 Resp 18 04/21 1635 All vital signs available at the time of this entry have been reviewed. Discharge/Care Plan(Auto) PrescriptionsCurrent Visit ScriptsNo Known Home Medications Ethan Gaytan 04/21/201946:Risk-Abd Pain F Under 40)( Ectopic Risk factors reviewed Interpretation Diagnostics Lab Results InterpretationResultsLaboratory Tests 04/21/20 1644:[Embedded Image Not Available]Laboratory Tests: 04/21 04/21 1650 1644 Chemistry Sodium (136 - 145 mmol/L) 138 Potassium (3.5 - 5.1 mmol/L) 3.8 Chloride (101 - 109 mmol/L) 105 Carbon Dioxide (21 - 32 mmol/L) 24.4 Anion Gap (10 - 20 mmol/L) 12 BUN (3 - 21 mg/dL) 15 Creatinine (0.55 - 1.3 mg/dL) 0.98 Glomerular Filtr Rate (>=60 mL/min) > 60 BUN/Creatinine Ratio (10 - 20) 15.3 Glucose (74 - 106 mg/dL) 89 Calcium (8.4 - 10.2 mg/dL) 8.8 Total Bilirubin (0.0 - 1.0 mg/dL) 0.20 Direct Bilirubin (0.0 - 0.30 mg/dL) 0.00 AST (6 - 32 U/L) 14 ALT (12 - 78 U/L) 23 Total Alk Phosphatase (38 - 126 U/L) 63 Troponin I (0.00 - 0.056 ng/mL) <0.015 Total Protein (6.5 - 8.4 g/dL) 8.1 Albumin (3.4 - 4.8 g/dL) 3.3 L Globulin (1 - 10 G/DL) 4.8 Albumin/Globulin Ratio (0.75 - 1.50 RATIO) 0.69 L Lipase (128 - 270 U/L) 161 Serum , Qual (NEGATIVE) NEGATIVE Hematology WBC (4.5 - 12.5 K/mm3) 9.9 RBC (3.7 - 5.2 mill/mm3) 4.84 Hgb (11.5 - 15.5 gram/dL) 11.2 L Hct (36.0 - 46.0 %) 36.0 MCV (80 - 98 fL) 74.4 L MCH (27.0 - 33.0 picogram) 23.1 L MCHC (33.0 - 36.0 gram/dL) 31.1 L RDW (11.6 - 16.2 %) 15.3 RDW Std Deviation (37.0 - 51.0 fL) 41.9 Plt Count (150 - 450 K/mm3) 376 MPV (6.7 - 11.0 fL) 9.7 Urines Urine Color (YELLOW) DARK YELLOW H Urine Appearance (CLEAR) HAZY H Urine pH (5.0 - 8.0) 5.0 Ur Specific [place] (1.001 - 1.035) 1.020 Urine Protein (Neg - 15 mg/dL) 15 (TRACE) H Urine Glucose (UA) (NEGATIVE mg/dL) norm Urine Ketones (NEGATIVE mg/dL) 5 (Trace) H Urine Blood (NEGATIVE Warren/uL) neg Urine Nitrite (NEGATIVE) NEGATIVE Urine Bilirubin (NEGATIVE mg/dL) NEGATIVE Urine Urobilinogen (0.0 - 0.2 mg/dL) 1 H Ur Leukocyte Esterase (NEGATIVE uL) 25 Philipp/uL (Trace) H Urine RBC (0 - 5 per HPF) NONE SEEN Urine WBC (0 - 5 per HPF) 0-5 Ur Epithelial Cells (Few per HPF) Few (2-5/hpf) Urine Bacteria (NONE per HPF) MANY H Urine Mucus (NONE - FEW per LPF) MODERATE H Recent Impressions:ULTRASOUND - DUP AB/PEL/SC COMP 04/21 1722 Report Impression - Status: SIGNED Entered: 04/21/20201903 IMPRESSION:1. Uterine fibroid.2. No adnexal lesions. Location code: HCAImpression By: Mecca Lees M.D.ULTRASOUND - US TRANSVAGINAL NON OB 04/21 172 Report Impression - Status: SIGNED Entered: 04/21/2020 190 IMPRESSION:1. Uterine fibroid.2. No adnexal lesions. Location code: HCAImpression By: Mecca Lees M.D.RADIOLOGY - XR CHEST 1 V 04/21 1725 Report Impression - Status: SIGNED Entered: 04/21/2020 1804 IMPRESSION: Normal chest x-ray. Location code: HCAImpression By: Mecca Lees M.D.CAT SCAN - CT ABD PELVIS W/CONT 04/21 8140 Report Impression - Status: SIGNED Entered: 04/21/20201938 IMPRESSION:1. No acute abdominal or pelvic abnormalities.2. Fatty infiltration of the liver.3. Solitary and unremarkable right kidney.4. Uterine fibroid. Location code: HCAImpression By: Mecca Lees M.D. Re-Evaluation MDM Free Text MDM NotesFree Text MDM NotesUltrasound showed uterine fibroid. CT scan was unremarkable. Patient was treated with IV fluids, Tylenol and Flexeril. Symptoms improved. Patient will be discharged home with outpatient follow-up. )( Re-Evaluation/Progress #1)( Re-Eval Status Improved Patient Discharge Departure Vital Signs/ConditionCondition Stable Clinical ImpressionClinical ImpressionPrimary Impression: Atypical chest painSecondary Impressions: Dysmenorrhea, Uterine fibroid Disposition DecisionDischarge )( Discharged to Home Yes )( Time 1954 )( Date 04/21/20 Discharge/Care PlanCounseled Regarding Diagnosis, Lab results, Imaging studies, Prescriptions, Needfor follow-up, When to return to ED Discharge NoteI have spoken with the patient and/or caregivers. I have explained the patient'scondition, diagnoses and treatment plan based on the information available to meat this time. I have answered the patient's and/or caregiver's questions and addressed any concerns. The patient and/or caregivers have as good an understanding of the patient's diagnosis, condition and treatment plan as can beexpected at this point. The vital signs have been stable. The patient's condition is stable and appropriate for discharge from the emergency department. The patient will pursue further outpatient evaluation with the primary care physician or other designated or consulting physician as outlined in the discharge instructions. The patient and/or caregivers are agreeable to this planof care and follow-up instructions have been explained in detail. The patient and/or caregivers have received these instructions in written format and have expressed an understanding of the discharge instructions. The patient and/or caregivers are aware that any significant change in condition or worsening of symptoms should prompt an immediate return to this or the closest emergency department or a call to 911. at 0106 at 1103RPT #:[id number] OF REPORTHCA [facility] department [id number]:00V.[id number] ilable for patient [id number]:44 [facility]
[2024-04-02] MEDS ORDERED: ONDANSETRON 4 MG (ODT) TAB ONE (23:20)
[2024-04-02] MEDS ORDERED: AMOX/K CLAV 875 MG TAB ONE (23:20)
[2024-04-02] MEDS ORDERED: HYDROCODONE/APAP 7.5/325 MG TAB ONE (23:21)
--- NOTE | 2024-04-02 23:24 | EDPHYS ---
Physician Documentation [facility] Name: Kate Gayle Age: 28 yrs Sex: Female : 1995 Arrival Date: 04/02/2024 Time: 22:14 Bed 8 Private MD: ED Physician Kayli Welch HPI: 04/02 23:15 This 28 yrs old Black Female presents to ER via Unassigned with complaints of Headache. sb4 23:15 believes she has a bad tooth causing pain in her jaw, ear, and right side of face. sb4 cracked the tooth 2 weeks ago, been having worsening pain for about 1 week now. taking tylenol and ibuprofen without significant relief. started to feel nauseated today. denies any fever or chills. Historical: - Allergies: 23:27 No Known Allergies; ha1 - Immunization history:: Adult Immunizations unknown. - Infectious Disease History:: Denies. - Social history:: Smoking status: unknown. ROS: 23:15 Constitutional: Negative for fever, chills, and weight loss, sb4 23:15 ENT: Positive for dental pain, ear pain, 23:15 Neuro: Positive for headache, 23:15 All other systems are negative, Exam: 23:15 Head/Face: Normocephalic, atraumatic. Eyes: Extra-ocular motions intact. Periorbital sb4 areas with no swelling, redness, or edema. Skin: Warm, dry with normal turgor. Normal color with no rashes, no lesions, and no evidence of cellulitis. MS/ Extremity: Pulses equal, no cyanosis. Neurovascular intact. Full, normal range of motion. Neuro: Awake and alert, GCS 15, oriented to person, place, time, and situation. Motor strength 5/5 in all extremities. Sensory grossly intact. 23:15 Constitutional: The patient appears alert, awake, in obvious pain, 23:15 Eyes: Pupils: equal, round, and reactive to light and accomodation, 23:15 ENT: Dental exam: cellulitis, specifically in the lower right first molar (#30) and lower right second molar (#31), dental caries, fractured teeth are noted, 23:15 Neuro: Gait: is steady, Vital Signs: 22:59 BP 140 / 91; Pulse 96; Resp 17 S; Temp 98.1; Pulse Ox 100% on R/A; ha1 Karli Coma Score: 23:15 Eye Response: spontaneous(4). Motor Response: obeys commands(6). Verbal Response: sb4 oriented(5). Total: 15. MDM: 22:52 Patient medically screened. sb4 23:15 Data reviewed: vital signs, nurses notes, and as a result, I will discharge patient. sb4 Counseling: I had a detailed discussion with the patient and/or guardian regarding the historical points, exam findings, and any diagnostic results supporting the discharge/admit diagnosis, the need for outpatient follow up, a dentist, to return to the emergency department if symptoms worsen or persist or if there are any questions or concerns that arise at home. Administered Medications: 23:25 Drug: Amoxicillin-Clavulanate PO 875 mg PO once Route: PO; ha1 23:38 Follow up: Response: No adverse reaction; Marked relief of symptoms ha1 23:25 Drug: Hydrocodone-Acetaminophen PO (7.5 mg-325 mg) 1 tabs PO once Route: PO; ha1 23:38 Follow up: Response: No adverse reaction; Marked relief of symptoms ha1 23:25 Drug: Ondansetron Oral Disintegrating Tablet Oral Disintegrating Tablet 4 mg PO once ha1 Route: PO; 23:38 Follow up: Response: No adverse reaction ha1 Disposition Summary: 04/02/24 23:24 Discharge Ordered Notes: Location: Home sb4 Problem: new sb4 Symptoms: have improved sb4 Condition: Stable sb4 Diagnosis - Dental caries, unspecified sb4 Followup: sb4 - With: Chad Layton DDS - When: 1 week - Reason: Recheck today's complaints, Re-evaluation by your physician Discharge Instructions: - Discharge Summary Sheet sb4 - Dental Caries, Adult sb4 - Dental Pain, [id number] sb4 Forms: - Antibiotic Education sb4 - Patient Portal Instructions sb4 - Leadership Thank You Letter sb4 Prescriptions: - Amoxicillin 875 mg Oral Tablet - take 1 tablet ORAL route every 12 hours for 10 days; 20 tablet; Refills: 0, sb4 Product Selection Permitted Signatures: Liz Davis RN RN ha1 Nirmala Jaffe PA-C PA-C sb4
--- NOTE | 2024-04-02 23:40 | ER ---
Nurse's Notes [facility] Name: Kate Gayle Age: 28 yrs Sex: Female : 1995 Arrival Date: 04/02/2024 Time: 22:14 Bed 8 Private MD: Diagnosis: Dental caries, unspecified Presentation: 04/02 22:59 Chief complaint: Patient states: tooth ache and headache. 1 22:59 Coronavirus screen: Vaccine status: Patient reports being unvaccinated. Ebola Screen: ha1 No symptoms or risks identified at this time. Initial Sepsis Screen: Does the patient meet any 2 criteria? No. Patient's initial sepsis screen is negative. Does the patient have a suspected source of infection? No. Patient's initial sepsis screen is negative. Risk Assessment: Do you want to hurt yourself or someone else? Patient reports no desire to harm self or others. Onset of symptoms was April 02, 2024. 22:59 Method Of Arrival: Ambulatory 1 22:59 Acuity: EDDIE 4 ha1 Triage Assessment: 23:00 Headache History: The patient has had previous headaches and this one is similar to 1 previous episodes. General: Appears uncomfortable, Behavior is calm, cooperative. Pain: Complains of pain in lower right second molar (#31) and lower right first molar (#30) and headache Pain does not radiate. Pain currently is 9 out of 10 on a pain scale. Quality of pain is described as aching, Pain began gradually. Pain: Also complains of no other associated symptoms. Neuro: Level of Consciousness is awake, alert, obeys commands, Oriented to person, place, time, situation. Cardiovascular: Capillary refill < 3 seconds Patient's skin is warm and dry. Respiratory: Airway is patent Respiratory effort is even, unlabored, Respiratory pattern is regular, symmetrical. Historical: - Allergies: 23:27 No Known Allergies; ha1 - Immunization history:: Adult Immunizations unknown. - Infectious Disease History:: Denies. - Social history:: Smoking status: unknown. Screenin:28 [facility] ED Fall Risk Assessment (Adult) History of falling in the last 3 months, ha1 including since admission No falls in past 3 months (0 pts) Confusion or Disorientation No (0 pts) Intoxicated or Sedated No (0 pts) Impaired Gait No (0 pts) Mobility Assist Device Used No (0 pt) Altered Elimination No (0 pt) Score/Fall Risk Level 0 - 2 = Low Risk Oriented to surroundings, Maintained a safe environment, Educated pt \T\ family on fall prevention, incl call for assistance when getting out of bed, Hourly rounding (assess needs \T\ fall precautionary measures) done. Abuse screen: Denies threats or abuse. Denies injuries from another. Nutritional screening: No deficits noted. Tuberculosis screening: No symptoms or risk factors identified. Vital Signs: 22:59 BP 140 / 91; Pulse 96; Resp 17 S; Temp 98.1; Pulse Ox 100% on R/A; ha1 Karli Coma Score: 23:15 Eye Response: spontaneous(4). Motor Response: obeys commands(6). Verbal Response: sb4 oriented(5). Total: 15. ED Course: 22:18 Patient arrived in ED. rg4 22:29 Nirmala Jaffe PA-C is PHCP. sb4 22:29 Kayli Welch MD is Attending Physician. sb4 22:59 Patient has correct armband on for positive identification. Bed in low position. Call ha1 light in reach. Side rails up X 1. 22:59 Arm band placed on right wrist. ha1 23:05 Chato Ferreira, MATHIEU is Primary Nurse. rg5 23:24 Chad Layton DDS is Referral Physician. sb4 23:27 Triage completed. ha1 23:38 No provider procedures requiring assistance completed. Patient did not have IV access ha1 during this emergency room visit. 23:39 Provided Education on: medication administration . ha1 Administered Medications: 23:25 Drug: Amoxicillin-Clavulanate PO 875 mg PO once Route: PO; ha1 23:38 Follow up: Response: No adverse reaction; Marked relief of symptoms ha1 23:25 Drug: Hydrocodone-Acetaminophen PO (7.5 mg-325 mg) 1 tabs PO once Route: PO; ha1 23:38 Follow up: Response: No adverse reaction; Marked relief of symptoms ha1 23:25 Drug: Ondansetron Oral Disintegrating Tablet Oral Disintegrating Tablet 4 mg PO once ha1 Route: PO; 23:38 Follow up: Response: No adverse reaction ha1 Medication: 23:28 VIS not applicable for this client. ha1 Outcome: 23:24 Discharge ordered by . sb4 23:38 Discharged to home ambulatory, ha1 23:38 Condition: stable 23:38 Discharge instructions given to patient, Instructed on discharge instructions, follow up and referral plans. medication usage, Demonstrated understanding of instructions, follow-up care, medications, Prescriptions given X 1, 23:39 Patient left the ED. ha1 Signatures: Marcela Lamar rg4 Liz Davis RN RN ha1 Nirmala Jaffe PAJoleneC PA-C oleg4 Chato Ferreira RN RN rg5
[2024-04-03 02:26] VITALS: BP 140/91; TEMP 98.1; O2SAT 100
== END 2024-04-02 23:39 | disposition home or self-care (01) ==
LOC: ER 22:14
DX: K02.9 Dental caries, unspecified (principal)
CPT/HCPCS: 99283; Q0162